=== PATIENT | female | born 1940 | race Caucasian/White ===

== ENCOUNTER 2017-05-07 22:35 | Emergency (ER) | payer MEDICARE, MEDICAID ==
--- NOTE | 2017-05-07 23:10 | EDM.PDOC ---
ED HPI GENERAL MEDICAL PROBLEM - General Chief Complaint: Respiratory Problem Stated Complaint: SOB Time Seen by Provider: 05/07/17 23:09 Source of Information: Reports: Patient History Limitations: Reports: No Limitations - History of Present Illness INITIAL COMMENTS - FREE TEXT/NARRATIVE: 77-year-old female attends the ED due to severe paroxysmal cough for the last 4 days. Feels is getting worse rather than better. Associated body aches and a headache. Appetite remains fair. She did have a flu shot this year. She works at [employer] and therefore could be exposed to influenza. She states her nose is occluded and mixes more difficult to breathe at night. Cough is worse with lying down. Minimally productive. No hemoptysis. Is been taking Advil about every 6 hours for body ache and fever relief. Onset: Sudden Onset Date: 05/03/17 Onset Time: 19:00 Duration: Day(s): Location: Reports: Chest (Severe harsh paroxysmal cough. Bodyache) Quality: Reports: Ache ( headache.), Other Severity: Moderate (Headache) Improves with: Reports: None Worsens with: Reports: Other (Lying down or exposure to cool air.) Context: Reports: Sick Contact. Denies: Activity, Exercise, Lifting, Trauma, Other Associated Symptoms: Reports: Chest Pain, Cough (From coughing), Fever/Chills, Headaches, Malaise, Shortness of Breath, Weakness. 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 almost every 6 hours.) - Related Data Allergies Allergy/AdvReac Type Severity Reaction Status Date / Time No Known Allergies Allergy Verified 05/07/17 22:49 Home Meds: Home Meds Ascorbate Calcium [Vitamin C] 500 mg PO DAILY 05/07/17 [History] Calcium Carb & Citrate/Vit D3 [Calcium + D3 ER Tablet] 1,200 mg PO DAILY [History] Fish Oil/DHA/EPA [Fish Oil 1,200 MG] 1 cap PO DAILY 05/07/17 [History] LORazepam [Ativan] 1 tab PO DAILY 05/07/17 [History] Magnesium 250 mg PO DAILY 05/07/17 [History] Potassium 99 mg PO DAILY 05/07/17 [History] Sertraline [Zoloft] 75 mg PO DAILY 05/07/17 [History] Simvastatin [Zocor] 10 mg PO DAILY 05/07/17 [History] amLODIPine [Norvasc] 5 mg PO DAILY 05/07/17 [History] Chlorpheniramine/HYDROcodone [Tussionex Pennkinetic] 5 ml PO Q12H PRN #60 ml [Rx] Doxycycline [Vibramycin] 100 mg PO DAILY #16 cap 05/08/17 [Rx] Past Medical History HEENT History: Reports: Impaired Vision Cardiovascular History: Reports: High Cholesterol, Hypertension Genitourinary History: Reports: None Psychiatric History: Reports: Anxiety - Past Surgical History HEENT Surgical History: Reports: Tonsillectomy Female Surgical History: Reports: Hysterectomy Social & Family History - Family History Family Medical History: Noncontributory - Tobacco Use Smoking Status *Q: Never Smoker - Recreational Drug Use Recreational Drug Use: No - Living Situation & Occupation Living situation: Reports: Occupation: Employed ED ROS GENERAL - Review of Systems Review Of Systems: See Below Constitutional: Reports: Fever, Malaise, Weakness, Fatigue, Decreased Appetite ( Mildly decreased). Denies: Chills HEENT: Reports: Other Respiratory: Reports: Shortness of Breath (He is nasally congested.), Cough. Denies: Wheezing, Pleuritic Chest Pain ( Due to coughing so much.), Sputum ( Severe paroxysmal cough minimally productive.) Cardiovascular: Reports: Chest Pain, Blood Pressure Problem (Coughing so much.) , Lightheadedness (It's lightheaded at times from coughing so hard). Denies: Claudication, Dyspnea on Exertion, Orthopnea ( Is on medication for blood pressure), Palpitations GI/Abdominal: Reports: Decreased Appetite (Mild a decreased appetite.) : Reports: Incontinence (Stress incontinence from coughing so hard.) Musculoskeletal: Reports: Muscle Pain Skin: Reports: No Symptoms (Generalized myalgia) Neurological: Reports: No Symptoms Psychiatric: Reports: No Symptoms ED EXAM, GENERAL - Physical Exam Exam: See Below Exam Limited By: No Limitations General Appearance: Alert, WD/WN, No Apparent Distress, Other (Does feel warm to palpation. Nurses got 36.6 by skin exam.) Eye Exam: Bilateral Eye: Normal Inspection Ears: Normal TMs Nose: Nasal Swelling (Does have marked swelling of the turbinates bilaterally due to I think), Nasal Drainage Throat/Mouth: Normal Inspection, Normal Lips, Normal Oropharynx Head: Atraumatic, Normocephalic Neck: Normal Inspection, Supple, Non-Tender, Full Range of Motion. No: Lymphadenopathy (L), Lymphadenopathy (R) Respiratory/Chest: Lungs Clear, Normal Breath Sounds, Respiratory Distress ( Mild tachypnea at rest 24/m), Other (Intermittent paroxysmal cough.). No: Decreased Breath Sounds, Crackles, Rales, Rhonchi, Wheezing Cardiovascular: Normal Peripheral Pulses, Regular Rate, Rhythm, No Edema, No Murmur Peripheral Pulses: 2+: Posterior Tibial (L), Posterior Tibial (R), Dorsalis Pedis (L), Dorsalis Pedis (R) GI/Abdominal: Normal Bowel Sounds, Soft, Non-Tender, No Organomegaly Back Exam: Normal Inspection, Full Range of Motion Extremities: Normal Inspection, Normal Range of Motion, Non-Tender, No Pedal Edema Neurological: Alert, Oriented, CN II-XII Intact, Normal Cognition, Normal Gait Psychiatric: Normal Affect, Normal Mood Skin Exam: Warm, Dry, Intact, Normal Color, No Rash Course - Vital Signs Last Recorded V/S: Last Vital Signs Temp 36.6 C 05/07/17 22:44 Pulse 84 05/07/17 22:44 Resp 24 H 05/07/17 22:44 BP 146/95 H 05/07/17 22:44 Pulse Ox 95 05/07/17 22:44 - Orders/Labs/Meds Meds: Medications Discontinued Medications Generic Name Dose Route Start Last Admin Trade Name Freq PRN Reason Stop Dose Admin Doxycycline Hyclate 100 mg 05/08/17 00:15 05/08/17 00:28 Vibramycin PO 05/08/17 00:16 100 mg ONETIME ONE Administration Promethazine HCl/Codeine 10 ml 05/08/17 23:16 Phenergan With Codeine PO 05/08/17 23:17 ONETIME ONE Promethazine HCl/Codeine 10 ml 05/07/17 23:16 05/07/17 23:29 Phenergan With Codeine PO 05/07/17 23:17 10 ml ONETIME ONE Administration - Radiology Interpretation Free Text/Narrative:: 77-year-old female seen through the ED due to severe paroxysmal cough for the last 4 days. She can't sleep because she time she lays down she is coughing severely. Associated nasal congestion generalized myalgia and headache. She did have a flu shot this last year. Clinically she has a milder form of influenza. I will screen her for influenza at this time. I will provide her with codeine cough syrup with Phenergan 10 mils by mouth now with a few crackers. - Re-Assessments/Exams Free Text/Narrative Re-Assessment/Exam: 05/08/17 00:13 influenza screen has returned as negative. Patient will therefore be treated for bronchitis with doxycycline 100 mg twice daily for the next 8 days. Initial dose was given in the ED. She also received initial dose of cough syrup 10 mils of codeine with Phenergan by mouth. I will write a prescription for Tussionex cough syrup to be taken 5 mils every 12 hours as necessary for cough relief.. Follow-up with personal physician if not markedly improved in 5 days time. Departure - Departure Time of Disposition: 00:14 Disposition: Home, Self-Care 01 Condition: Fair Clinical Impression: Bronchitis - Discharge Information Prescriptions: Chlorpheniramine/HYDROcodone [Tussionex Pennkinetic] 5 ml PO Q12H PRN #60 ml PRN Reason: Cough relief Doxycycline [Vibramycin] 100 mg PO DAILY #16 cap Instructions: Acute Bronchitis, Adult, [id number] Referrals: Elsy Mayfield MD [Primary Care Provider] - Forms: ED Department Discharge Additional Instructions: Evaluation in the emergency room tonight in regards to severe paroxysmal cough to the point of for the last several days. Associated mild generalized body ache and headache. Some of the symptoms of influenza are present. It was felt that you might be suffering a milder form of the illness and she did have a flu shot. Influenza screen however proved to be negative in the emergency department. This does not necessarily mean you still do not have the disease it just means that the test may have missed the date diagnosis. Diagnosis otherwise is bronchitis. I'm therefore going to start her on antibiotic doxycycline 100 mg twice daily for 8 days to clear up infection both in the sinuses and chest. Cough syrup will be Tussionex 5 mils every 12 hours as needed for cough relief primarily at bedtime. Take a good hour before bedtime as it takes about an hour to work. Follow-up with personal physician if not markedly improved in the next 5 days.
[2017-05-07] MEDS ORDERED: Codeine/Promethazine 10-6.25 MG/5 ML Syrup 5 ML UD Cup PO ONE (23:16)
[2017-05-08] MEDS ORDERED: Doxycycline 100 MG Cap PO ONE (00:15)
[2017-05-08] MEDS ORDERED: Codeine/Promethazine 10-6.25 MG/5 ML Syrup 5 ML UD Cup PO ONE (23:16)
== END 2017-05-08 00:30 | disposition home or self-care (01) ==
LOC: JD.ED 22:35
DX: J40 Bronchitis, not specified as acute or chronic (principal); I10 Essential (primary) hypertension; E78.00 Pure hypercholesterolemia, unspecified; Z79.2 Long term (current) use of antibiotics; Z79.899 Other long term (current) drug therapy
CPT/HCPCS: 87804; 99283; A9270

== ENCOUNTER → 2018-03-17 | Day surgery (SDC) | payer MEDICARE, MEDICAID ==
[~2018-03-17] MED LIST: Lactated Ringers 1,000 ML IV SCH; Lidocaine 1% 4 ML ONE; Lidocaine 1%/Sod Bicarbonate in NS 8.4% 1 ML Syringe IDERM PRN; Ondansetron 4 MG/2 ML SDV ONE; Propofol 200 MG/20 ML SDV ONE; Sodium Chloride 0.9% 10 ML Syringe FLUSH PRN; fentaNYL 100 MCG/2 ML SDV ONE
--- NOTE | 2018-03-17 07:42 | PCM.PREANE ---
Preanesthetic Assessment - Procedure Proposed Procedure: Colonoscopy - Anesthesia/Transfusion/Family Hx Anesthesia History: Prior Anesthesia Without Reaction Family History of Anesthesia Reaction: No - Review of Systems General: No Symptoms Pulmonary: No Symptoms Cardiovascular: No Symptoms Gastrointestinal: No Symptoms Neurological: No Symptoms Other: Reports: Anxiety - Physical Assessment NPO Status Date: 03/16/18 NPO Status Time: 21:00 O2 Sat by Pulse Oximetry: 96 Respiratory Rate: 16 Vital Signs: Last Vital Signs Temp 36.4 C 03/17/18 07:05 Pulse 58 L 03/17/18 07:05 Resp 16 03/17/18 07:05 BP 154/91 H 03/17/18 07:05 Pulse Ox 96 03/17/18 07:05 Height: 1.57 m Weight: 61.235 kg ASA Class: 2 Mental Status: Alert & Oriented x3 Airway Class: Mallampati = 1 Dentition: Reports: Partial Thyro-Mental Finger Breadths: 3 Mouth Opening Finger Breadths: 3 ROM/Head Extension: Full Lungs: Clear to Auscultation, Normal Respiratory Effort Cardiovascular: Regular Rate, Regular Rhythm - Allergies Allergies/Adverse Reactions: Allergies Allergy/AdvReac Type Severity Reaction Status Date / Time No Known Allergies Allergy Verified 03/16/18 18:48 - Acknowledgements Anesthesia Type Planned: MAC Pt an Appropriate Candidate for the Planned Anesthesia: Yes Alternatives and Risks of Anesthesia Discussed w Pt/Guardian: Yes Pt/Guardian Understands and Agrees with Anesthesia Plan: Yes PreAnesthesia Questionnaire HEENT History: Reports: Impaired Vision Cardiovascular History: Reports: High Cholesterol, Hypertension, Other (See Below) Other Cardiovascular History: bradycardia Respiratory History: Reports: Other (See Below) Other Respiratory History: shortness of breath with exertion Gastrointestinal History: Reports: Hiatal Hernia Genitourinary History: Reports: Other (See Below) Other Genitourinary History: frequency 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 Musculoskeletal History: Reports: None Neurological History: Reports: None Psychiatric History: Reports: Anxiety Endocrine/Metabolic History: Reports: None Hematologic History: Reports: None Immunologic History: Reports: None Oncologic (Cancer) History: Reports: None Dermatologic History: Reports: None - Past Surgical History Head Surgeries/Procedures: Reports: None HEENT Surgical History: Reports: Tonsillectomy Cardiovascular Surgical History: Reports: None Respiratory Surgical History: Reports: None GI Surgical History: Reports: Colonoscopy Female Surgical History: Reports: Breast Biopsy, Hysterectomy, Other (See Below) Other Female Surgeries/Procedures: bladder repair Endocrine Surgical History: Reports: None Neurological Surgical History: Reports: None Musculoskeletal Surgical History: Reports: None Oncologic Surgical History: Reports: None Dermatological Surgical History: Reports: None - SUBSTANCE USE Recreational Drug Use History: No - HOME MEDS Home Medications: Home Meds Ascorbate Calcium [Vitamin C] 500 mg PO DAILY 05/07/17 [History] Fish Oil/DHA/EPA [Fish Oil 1,200 MG] 1 cap PO BID 05/07/17 [History] LORazepam [Ativan] 1 tab PO Q48H 05/07/17 [History] Magnesium 250 mg PO DAILY 05/07/17 [History] Sertraline [Zoloft] 75 mg PO DAILY 05/07/17 [History] amLODIPine [Norvasc] 5 mg PO DAILY 05/07/17 [History] Aspirin [Hurt Aspirin] 81 mg PO DAILY 03/16/18 [History] Calcium Carb/D3/Magnesium/Zinc [Ketan Mag Zinc + D Tablet] 1 tab PO BID 03/16/18 [ History] Cyanocobalamin (Vitamin B-12) [Vitamin B-12] 100 mcg PO DAILY 03/16/18 [History] Rosuvastatin [Crestor] 10 mg PO DAILY 03/16/18 [History] hydroCHLOROthiazide [Hydrochlorothiazide] 25 g PO DAILY 03/16/18 [History] - CURRENT (IN HOUSE) MEDS Current Meds: Current Medications Lactated Ringer's (Ringers, Lactated) 1,000 mls @ 125 mls/hr IV ASDIRECTED ALEXANDER Stop: 03/17/18 23:00 Last Admin: 03/17/18 07:15 Dose: 125 mls/hr Lidocaine/Sodium Bicarbonate (Buffered Lidocaine 1% In Ns 8.4%) 0.25 ml IDERM ONETIME PRN PRN Reason: Prior to IV Start Stop: 03/17/18 18:00 Last Admin: 03/17/18 07:15 Dose: 0.25 ml Sodium Chloride (Saline Flush) 10 ml FLUSH ASDIRECTED PRN PRN Reason: Keep Vein Open Stop: 03/17/18 18:00 Discontinued Medications Fentanyl (Sublimaze) Confirm Administered Dose 100 mcg .ROUTE .STK-MED ONE Stop: 03/17/18 07:33 Lidocaine HCl (Xylocaine-Mpf 1%) Confirm Administered Dose 4 mls @ as directed .ROUTE .STK-MED ONE Stop: 03/17/18 07:33 Ondansetron HCl (Zofran) Confirm Administered Dose 4 mg .ROUTE .STK-MED ONE Stop: 03/17/18 07:32 Propofol (Diprivan 20 Ml) Confirm Administered Dose 400 mg .ROUTE .STK-MED ONE Stop: 03/17/18 07:32
--- NOTE | 2018-03-17 09:20 | PCM.OPNOTE ---
- General Post-Op/Procedure Note Date of Surgery/Procedure: 03/17/18 Operative Procedure(s): colonoscopy to cecum with polypectomy Findings: 1. Ascending colon polyp 2. Transverse colon polyp 3. Rectal polyp x2 Pre Op Diagnosis: screening for colon cancer Post-Op Diagnosis: same Anesthesia Technique: MAC Primary Surgeon: Brinda Kincaid Anesthesia Provider: Ella Britt Pathology: 1. Ascending colon polyp 2. Transverse colon polyp 3. Rectal polyp x3 Fluid Replacement, Intraop: 800 Output, Urine Amount: 0 EBL in mLs: 0 Condition: Good
--- NOTE | 2018-03-17 09:20 | PCM48HPAN ---
Post Anesthesia Note - EVALUATION WITHIN 48HRS OF ANESTHETIC Vital Signs in Normal Range: Yes Patient Participated in Evaluation: Yes Respiratory Function Stable: Yes Airway Patent: Yes Cardiovascular Function Stable: Yes Hydration Status Stable: Yes Pain Control Satisfactory: Yes Nausea and Vomiting Control Satisfactory: Yes Mental Status Recovered: Yes Pulse Rate: 58 SaO2: 96 Resp Rate: 16 Temperature: 36.2 C Blood Pressure: 141/75
--- NOTE | 2018-03-17 09:22 | PCM.PRNOTE ---
- Free Text/Narrative Note: Operative Report Date of Surgery/Procedure: March, Operative Procedure: Colonoscopy to cecum with polypectomy Pre Op Diagnosis: colorectal cancer screening Post-Op Diagnosis: Same Surgeon: Brinda Kincaid Anesthesia Technique: MAC Anesthesia Provider: Marii Britt CRNA IV Fluid Replacement, Intraop: 800 cc Output, Urine Amount: 0cc EBL : 0cc Findings: 1. Ascending colon polyp 2. Transverse colon polyp 3. Rectal polyp x2 Specimens: 1. Ascending colon polyp 2. Transverse colon polyp 3. Rectal polyp x2 Indication: The patient is a 77 year-old lady who presented to the outpatient clinic requesting colorectal cancer screening. The patient has a history of alternating intermittent soft stools with pebble-like stools. She otherwise is without symptoms. We discussed the procedure of a screening colonoscopy including the polypectomy and biopsy. Risks of bleeding and perforation were discussed, the patient understood and wished to proceed. Written and consent was obtained Description of the procedure: The patient was brought to the endoscopy suite and placed in the left lateral decubitus position. Appropriate monitors were applied. The patient was given MAC anesthesia. An anorectal examination was performed, revealing external skin tags without evidence of significant hemorrhoids. The scope was placed into the rectum and advanced to cecum with minimal difficulty requiring no special maneuvers. The patients cecum was entered, and the ileocecal valve and appendiceal orifice were identified and normal. At this point, the scope was withdrawn, paying careful attention to the mucosa. The patient had excellent bowel prep, allowing for visualization of 90-95 % of the mucosa. Polyps in the descending and transverse colon as well as rectum were noted. These were each 2 -3 mm in size and flat, each was removed using a cold biopsy forceps. In the rectum, the scope was retroflexed and no abnormalities were noted, except for some minimal hemorrhoidal tissue. The scope was placed back in the lumen and the excess air was aspirated. The patient tolerated the procedure well. Complications: none apparent Condition: Good, transported to PACU in stable condition Brinda Kincaid MD General Surgery
== END | disposition home or self-care (01) ==
LOC: JD.SDS 06:51
PROVIDERS: ATTEND Surgery
DX: Z12.11 Encounter for screening for malignant neoplasm of colon (principal); D12.3 Benign neoplasm of transverse colon; D12.2 Benign neoplasm of ascending colon; K62.1 Rectal polyp; I10 Essential (primary) hypertension; E78.5 Hyperlipidemia, unspecified; K44.9 Diaphragmatic hernia without obstruction or gangrene; F41.9 Anxiety disorder, unspecified; Z79.899 Other long term (current) drug therapy
CPT/HCPCS: 45380; J2405; J2704; J3010; J7120; J2001

== ENCOUNTER 2020-05-19 07:59 | Day surgery (SDC) | payer MEDICARE, MEDICAID ==
[~2020-05-19 07:59] MED LIST changes: +EPINEPHrine 1 MG/ML SDV ONE; -Lactated Ringers 1,000 ML IV SCH; +Midazolam 1 MG/ML 2 ML SDV ONE; -Ondansetron 4 MG/2 ML SDV ONE; +Ropivacaine 0.5% 5 MG/ML 30 ML SDV ONE; -fentaNYL 100 MCG/2 ML SDV ONE; +fentaNYL 250 MCG/5 ML SDV ONE
[2020-05-19] MEDS ORDERED: ceFAZolin 1 GM Vial ONE (08:07)
[2020-05-19] MEDS: Lactated Ringers 1,000 ML IV SCH ×3 (08:20→15:35)
--- NOTE | 2020-05-19 08:23 | PCM.PREANE ---
Preanesthetic Assessment - Anesthesia/Transfusion/Family Hx Anesthesia History: Prior Anesthesia Without Reaction Family History of Anesthesia Reaction: No Transfusion History: No Prior Transfusion(s) - Review of Systems General: No Symptoms Pulmonary: No Symptoms Cardiovascular: No Symptoms Gastrointestinal: No Symptoms Neurological: No Symptoms Other: Reports: None - Physical Assessment NPO Status Date: 05/18/20 NPO Status Time: 21:30 ASA Class: 2 Mental Status: Alert & Oriented x3 Airway Class: Mallampati = 2 Dentition: Reports: Partial Thyro-Mental Finger Breadths: 3 Mouth Opening Finger Breadths: 3 ROM/Head Extension: Full Lungs: Clear to Auscultation, Normal Respiratory Effort Cardiovascular: Regular Rate, Regular Rhythm - Lab Values: Laboratory Last Values SARS-CoV-2 RNA (ZAC) Negative (NEGATIVE) 05/15/20 10:30 MRSA (PCR) Negative 05/07/20 17:00 - Allergies Allergies/Adverse Reactions: Allergies Allergy/AdvReac Type Severity Reaction Status Date / Time No Known Allergies Allergy Verified 05/18/20 10:32 - Acknowledgements Anesthesia Type Planned: Spinal Pt an Appropriate Candidate for the Planned Anesthesia: Yes Alternatives and Risks of Anesthesia Discussed w Pt/Guardian: Yes Pt/Guardian Understands and Agrees with Anesthesia Plan: Yes PreAnesthesia Questionnaire HEENT History: Reports: Impaired Vision Cardiovascular History: Reports: High Cholesterol, Hypertension, Other (See Below) Other Cardiovascular History: bradycardia Respiratory History: Reports: Other (See Below) Other Respiratory History: shortness of breath with exertion Gastrointestinal History: Reports: Colon Polyp, Hiatal Hernia Genitourinary History: Reports: Other (See Below) Other Genitourinary History: cystocele, rectocele, prolapse, bladder dysfunction, urinary frequency 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 Musculoskeletal History: Reports: Arthritis, Fibromyalgia, Other (See Below) Other Musculoskeletal History: left knee pain Neurological History: Reports: None Psychiatric History: Reports: Anxiety, Depression Endocrine/Metabolic History: Reports: None Hematologic History: Reports: None Immunologic History: Reports: None Oncologic (Cancer) History: Reports: None Dermatologic History: Reports: None - Infectious Disease History Infectious Disease History: Reports: None - Past Surgical History Head Surgeries/Procedures: Reports: None HEENT Surgical History: Reports: Tonsillectomy Cardiovascular Surgical History: Reports: None Respiratory Surgical History: Reports: None GI Surgical History: Reports: Colonoscopy Female Surgical History: Reports: Breast Biopsy, Hysterectomy, Other (See Below) Other Female Surgeries/Procedures: bladder repair Endocrine Surgical History: Reports: None Neurological Surgical History: Reports: None Musculoskeletal Surgical History: Reports: None Oncologic Surgical History: Reports: None Dermatological Surgical History: Reports: None - SUBSTANCE USE Tobacco Use Status *Q: Never Tobacco User Recreational Drug Use History: No - HOME MEDS Home Medications: Home Meds Ascorbate Calcium [Vitamin C] 500 mg PO DAILY 05/07/17 [History] Sertraline [Zoloft] 75 mg PO DAILY 05/07/17 [History] amLODIPine [Norvasc] 5 mg PO DAILY 05/07/17 [History] Calcium Carb/D3/Magnesium/Zinc [Ketan Mag Zinc-D Tablet] 1 tab PO BID 03/16/18 [History] Rosuvastatin [Crestor] 10 mg PO DAILY 03/16/18 [History] hydroCHLOROthiazide [Hydrochlorothiazide] 25 mg PO DAILY 03/16/18 [History] Cholecalciferol (Vitamin D3) [Vitamin D3] 5,000 unit PO DAILY 05/18/20 [History] Losartan [Cozaar] 50 mg PO DAILY 05/18/20 [History] Potassium Chloride 20 meq PO DAILY 05/18/20 [History] tiZANidine HCl [Zanaflex] 4 mg PO DAILY 05/18/20 [History] Acetaminophen/HYDROcodone [[place] 325-5 MG] 1 - 2 tab PO Q4H PRN #40 tablet 05/19/20 [Rx] Aspirin [Aspirin EC] 325 mg PO BID #84 tab 05/19/20 [Rx] - CURRENT (IN HOUSE) MEDS Current Meds: Current Medications Morphine Sulfate 8 mg/Epinephrine HCl 0.3 mg/Cefuroxime Sodium 750 mg/Ketorolac Tromethamine 30 mg/Sodium Chloride 7.9 ml 0 mg .XX ASDIRECTED PRN PRN Reason: Pain Stop: 05/19/20 18:00 Lactated Ringer's (Ringers, Lactated) 1,000 mls @ 125 mls/hr IV ASDIRECTED ALEXANDER Stop: 05/19/20 23:00 Lidocaine/Sodium Bicarbonate (Buffered Lidocaine 1% In Ns 8.4%) 0.25 ml IDERM ONETIME PRN PRN Reason: Prior to IV Start Stop: 05/19/20 18:00 Sodium Chloride (Saline Flush) 10 ml FLUSH ASDIRECTED PRN PRN Reason: Keep Vein Open Stop: 05/19/20 18:00 Discontinued Medications Cefazolin Sodium (Ancef) Confirm Administered Dose 2 gm .ROUTE .STK-MED ONE Stop: 05/19/20 08:08 Epinephrine HCl (Adrenalin) Confirm Administered Dose 1 mg .ROUTE .STK-MED ONE Stop: 05/19/20 07:47 Fentanyl (Sublimaze) Confirm Administered Dose 250 mcg .ROUTE .STK-MED ONE Stop: 05/19/20 07:25 Lidocaine HCl (Xylocaine-Mpf 1%) Confirm Administered Dose 4 mls @ as directed .ROUTE .STK-MED ONE Stop: 05/19/20 07:23 Midazolam HCl (Versed 1 Mg/Ml) Confirm Administered Dose 2 mg .ROUTE .STK-MED ONE Stop: 05/19/20 07:24 Propofol (Diprivan 20 Ml) Confirm Administered Dose 200 mg .ROUTE .STK-MED ONE Stop: 05/19/20 07:23 Ropivacaine (Naropin 0.5%) Confirm Administered Dose 30 ml .ROUTE .STK-MED ONE Stop: 05/19/20 07:47
[2020-05-19] MEDS ORDERED: Ondansetron 4 MG/2 ML SDV IVPUSH PRN ×2 (09:27→21:56)
[2020-05-19] MEDS: Vancomycin 1 GM SDV ONE ×2 (09:50→10:28)
[2020-05-19] MEDS: Morphine 8 MG, EPINEPHrine 0.3 MG, Cefuroxime 750 MG, Ketorolac 30 MG, Sodium Chloride ... PRN ×10 (09:50→10:20)
[2020-05-19] MEDS: Triamcinolone Acetonide 40 MG/ML 1 ML SDV ONE ×2 (09:51→10:38)
[2020-05-19] MEDS: Bupivacaine 0.25% 10 ML SDV ONE ×2 (09:52→10:38)
[2020-05-19] MEDS ORDERED: Ketorolac 30 MG/ML SDV ONE (10:00)
[2020-05-19] MEDS ORDERED: Ondansetron 4 MG/2 ML SDV ONE (10:00)
[2020-05-19] MEDS ORDERED: fentaNYL 100 MCG/2 ML SDV ONE ×2 (10:57→11:28)
--- NOTE | 2020-05-19 11:18 | PCM.POSTAN ---
POST ANESTHESIA ASSESSMENT - MENTAL STATUS Mental Status: Alert, Oriented - VITAL SIGNS Vital Signs: Last Vital Signs Temp Pulse 63 05/19/20 08:20 Resp 16 05/19/20 08:20 BP 147/85 H 05/19/20 08:20 Pulse Ox 97 05/19/20 08:20 - RESPIRATORY Respiratory Status: Respiratory Rate WNL, Airway Patent, O2 Saturation Stable - CARDIOVASCULAR CV Status: Slow Pulse Rate, Low Blood Pressure (pt given 10mg ephedrine, adequate response noted) - GASTROINTESTINAL GI Status: No Symptoms - PAIN Pain Score: 6 - POST OP HYDRATION Hydration Status: Adequate & Stable
[2020-05-19] MEDS ORDERED: HYDROmorphone 0.5 MG/0.5 ML Syringe ONE ×2 (11:19→11:29)
--- NOTE | 2020-05-19 12:08 | PCM.OPNOTE ---
- General Post-Op/Procedure Note Date of Surgery/Procedure: 05/19/20 Operative Procedure(s): left total knee arthroplasty with [employer] and right knee corticosteroid injection Pre Op Diagnosis: bilateral knee osteoarthrosis Post-Op Diagnosis: Same Anesthesia Technique: Local, MAC, Spinal Primary Surgeon: Gautam Aragon Anesthesia Provider: Capri Madison Supervising Fire Marshal: Laura Buck Supervising Fire Marshal: Cecilia Chi EBL in mLs: 5 Complications: None Condition: Good Free Text/Narrative:: 05/14 29x9 9mm
--- NOTE | 2020-05-19 12:12 | CR ---
Left knee: AP and crosstable lateral view of the left knee were obtained. Comparison: Prior left knee CT exam of 05/07/20. Left knee prosthesis is noted. Components are aligned. Patellar prosthesis is also seen. Soft tissue air is noted. No acute osseous finding is seen. Impression: 1. Satisfactory postop radiographic appearance of recently placed left knee prosthesis. Diagnostic code #2
--- NOTE | 2020-05-19 12:25 | PCM.SN.2 ---
- Free Text/Narrative Note: Left selective femoral nerve block at the adductor canal for post-procedure pain control under US guidance requested by Dr. Aragon. Date:05/19/2020 Time Out: 1106 Start: 1106 End: 1110 Chart reviewed. Consent signed. Questions answered. Appropriate monitors applied. Time out performed. Left mid-shaft femur identified with ultrasound, scanning medially of femur, the femoral artery in the adductor canal visualized, and the femoral nerve located laterally to the artery. The skin was prepped lateral to the ultrasound probe with chlorahexadine times two. The 21ga 4 insulated block needle was inserted under direct ultrasound guidance into the adductor canal. 25mL of 0.5% ropivacaine with 1:200,000 epinephrine was injected circumferentially around the nerve with intermittent negative aspiration noted. Patient tolerated the procedure well. Sterile technique noted along with sterile gloves, mask, and sterile probe cover. See picture on progress note and vital signs on nurses notes. Block completed in PACU. Luciano Britt CRNA
[2020-05-19] MEDS ORDERED: fentaNYL 100 MCG/2 ML SDV IVPUSH PRN (12:51)
[2020-05-19] MEDS ORDERED: HYDROmorphone 0.5 MG/0.5 ML Syringe IVPUSH PRN (12:51)
--- NOTE | 2020-05-19 12:51 | PCM48HPAN ---
Post Anesthesia Note - EVALUATION WITHIN 48HRS OF ANESTHETIC Vital Signs in Normal Range: Yes Patient Participated in Evaluation: Yes Respiratory Function Stable: Yes Airway Patent: Yes Cardiovascular Function Stable: Yes Hydration Status Stable: Yes Pain Control Satisfactory: Yes Nausea and Vomiting Control Satisfactory: Yes Mental Status Recovered: Yes Vital Signs: Last Vital Signs Temp 36.6 C 05/19/20 11:20 Pulse 76 05/19/20 11:20 Resp 20 05/19/20 11:20 BP 109/76 05/19/20 11:20 Pulse Ox 96 05/19/20 11:20 - COMMENTS/OBSERVATIONS Free Text/Narrative:: Pt resting quietly, comfortable.
[2020-05-19] MEDS: ceFAZolin 2 GM in Premix Bag 1 BAG IV SCH (19:21)
[2020-05-20] MEDS: ceFAZolin 2 GM in Premix Bag 1 BAG IV SCH (02:00)
[2020-05-20] MEDS: Acetaminophen/HYDROcodone 325-5 MG Tab PO PRN ×2 (08:34→12:06)
[2020-05-20] MEDS ORDERED: Aspirin 325 MG Tab.EC PO SCH ×2 (09:00)
[2020-05-20] MEDS ORDERED: Ketorolac 30 MG/ML SDV IM PRN (10:01)
[2020-05-20] MEDS ORDERED: tiZANidine 4 MG Tab PO PRN (10:02)
--- NOTE | 2020-05-20 17:27 | PCM.SURGPN ---
- General Info Date of Service: 05/20/20 POD#: 1 Functional Status: Reports: Pain Controlled, Tolerating Diet, Ambulating, Urinating, Incentive Spirometry, Other (The pt has done well with mobility and has met inpt therapy goals.) - Patient Data Vitals - Most Recent: Last Vital Signs Temp 99.2 F 05/20/20 08:00 Pulse 65 05/20/20 08:00 Resp 18 05/20/20 08:00 BP 130/74 05/20/20 08:00 Pulse Ox 92 L 05/20/20 08:00 Weight - Most Recent: 130 lb I&O - Last 24 Hours: Intake & Output 05/20/20 05/20/20 05/20/20 06:59 14:59 22:59 Intake Total 120 Balance 120 Med Orders - Current: Current Medications Cefazolin Sodium/Dextrose 2 gm (/ Premix) 50 mls @ 100 mls/hr IV Q8H ALEXANDER Stop: 05/20/20 10:29 Last Admin: 05/20/20 02:00 Dose: 100 mls/hr Documented by: Ondansetron HCl (Zofran) 4 mg IVPUSH Q4H PRN PRN Reason: Nausea Last Admin: 05/19/20 22:40 Dose: 4 mg Documented by: Discontinued Medications Bupivacaine HCl (Sensorcaine-Mpf 0.25%) Confirm Administered Dose 10 ml .ROUTE .STK-MED ONE Stop: 05/19/20 08:38 Last Admin: 05/19/20 10:38 Dose: 4 ml Documented by: Cefazolin Sodium (Ancef) Confirm Administered Dose 2 gm .ROUTE .STK-MED ONE Stop: 05/19/20 08:08 Morphine Sulfate 8 mg/Epinephrine HCl 0.3 mg/Cefuroxime Sodium 750 mg/Ketorolac Tromethamine 30 mg/Sodium Chloride 7.9 ml 0 mg .XX ASDIRECTED PRN PRN Reason: Pain Stop: 05/19/20 18:00 Last Admin: 05/19/20 10:20 Dose: 788.3 mg Documented by: Epinephrine HCl (Adrenalin) Confirm Administered Dose 1 mg .ROUTE .STK-MED ONE Stop: 05/19/20 07:47 Fentanyl (Sublimaze) Confirm Administered Dose 250 mcg .ROUTE .STK-MED ONE Stop: 05/19/20 07:25 Fentanyl (Sublimaze) Confirm Administered Dose 100 mcg .ROUTE .STK-MED ONE Stop: 05/19/20 10:58 Last Admin: 05/19/20 11:06 Dose: 100 mcg Documented by: Fentanyl (Sublimaze) Confirm Administered Dose 100 mcg .ROUTE .STK-MED ONE Stop: 05/19/20 11:29 Last Admin: 05/19/20 11:30 Dose: 100 mcg Documented by: Fentanyl (Sublimaze) 50 mcg IVPUSH Q5M PRN PRN Reason: Pain Stop: 05/19/20 23:00 Hydromorphone HCl (Dilaudid) Confirm Administered Dose 0.5 mg .ROUTE .STK-MED ONE Stop: 05/19/20 11:20 Last Admin: 05/19/20 11:37 Dose: 0.5 mg Documented by: Hydromorphone HCl (Dilaudid) Confirm Administered Dose 0.5 mg .ROUTE .STK-MED ONE Stop: 05/19/20 11:30 Last Admin: 05/19/20 11:20 Dose: 0.5 mg Documented by: Hydromorphone HCl (Dilaudid) 0.5 mg IVPUSH Q1H PRN PRN Reason: Pain Stop: 05/19/20 23:00 Lactated Ringer's (Ringers, Lactated) 1,000 mls @ 125 mls/hr IV ASDIRECTED ALEXANDER Stop: 05/19/20 23:00 Last Admin: 05/19/20 15:35 Dose: 125 mls/hr Documented by: Lidocaine HCl (Xylocaine-Mpf 1%) Confirm Administered Dose 4 mls @ as directed .ROUTE .STK-MED ONE Stop: 05/19/20 07:23 Ketorolac Tromethamine (Toradol) Confirm Administered Dose 30 mg .ROUTE .STK-MED ONE Stop: 05/19/20 10:01 Lidocaine/Sodium Bicarbonate (Buffered Lidocaine 1% In Ns 8.4%) 0.25 ml IDERM ONETIME PRN PRN Reason: Prior to IV Start Stop: 05/19/20 18:00 Last Admin: 05/19/20 08:20 Dose: 0.25 ml Documented by: Midazolam HCl (Versed 1 Mg/Ml) Confirm Administered Dose 2 mg .ROUTE .STK-MED ONE Stop: 05/19/20 07:24 Ondansetron HCl (Zofran) 4 mg IVPUSH ONETIME PRN PRN Reason: Nausea/Vomiting Stop: 05/19/20 23:00 Last Admin: 05/19/20 11:03 Dose: 4 mg Documented by: Ondansetron HCl (Zofran) Confirm Administered Dose 4 mg .ROUTE .STK-MED ONE Stop: 05/19/20 10:01 Propofol (Diprivan 20 Ml) Confirm Administered Dose 200 mg .ROUTE .STK-MED ONE Stop: 05/19/20 07:23 Ropivacaine (Naropin 0.5%) Confirm Administered Dose 30 ml .ROUTE .STK-MED ONE Stop: 05/19/20 07:47 Sodium Chloride (Saline Flush) 10 ml FLUSH ASDIRECTED PRN PRN Reason: Keep Vein Open Stop: 05/19/20 18:00 Tranexamic Acid (Cyklokapron) Confirm Administered Dose 1,000 mg .ROUTE .STK-MED ONE Stop: 05/19/20 08:20 Last Admin: 05/19/20 10:28 Dose: 1,000 mg Documented by: Triamcinolone Acetonide (Kenalog-40) Confirm Administered Dose 80 mg .ROUTE .STK-MED ONE Stop: 05/19/20 08:38 Last Admin: 05/19/20 10:38 Dose: 80 mg Documented by: Vancomycin HCl (Vancomycin) Confirm Administered Dose 1 gm .ROUTE .STK-MED ONE Stop: 05/19/20 08:20 Last Admin: 05/19/20 10:28 Dose: 1 gm Documented by: - Exam Wound/Incisions: Dressing Dry and Intact General: Alert, Cooperative, No Acute Distress Lungs: Normal Respiratory Effort Extremities: Other (NVS intact for BLE. Ubaldo's negative.) Sepsis Event Note - Evaluation Sepsis Screening Result: No Definite Risk - Focused Exam Vital Signs: Vital Signs Temp Pulse Resp BP Pulse Ox 05/20/20 08:00 99.2 F 65 18 130/74 92 L - Problem List Review Problem List Initiated/Reviewed/Updated: Yes - My Orders Last 24 Hours: Active Orders 24 hr Category Date Time Status Admission Status [Patient Status] [ADT] Routine ADT 05/19/20 19:38 Active Peripheral IV Discontinue [OM.PC] Routine Oth 05/20/20 09:12 Ordered Medication Orders Cefazolin Sodium/Dextrose 2 gm (/ Premix) 50 mls @ 100 mls/hr IV Q8H ALEXANDER Stop: 05/20/20 10:29 Last Admin: 05/20/20 02:00 Dose: 100 mls/hr Documented by: Infusion: 05/19/20 19:51 Dose: 100 mls/hr Documented by: Admin: 05/19/20 19:21 Dose: 100 mls/hr Documented by: GEOVANNA Ondansetron HCl (Zofran) 4 mg IVPUSH Q4H PRN PRN Reason: Nausea Last Admin: 05/19/20 22:40 Dose: 4 mg Documented by: TIFFANIE - Assessment Assessment (Free Text/Narrative):: POD#1 - left TKA - Plan Plan (Free Text/Narrative):: 1. The pt was sent to the [facility] post-operatively for Extended Floor Recovery. 2. The pt has progressed well with PT and is prepared for discharge to home. 3. 325mg ASA PO BID, frequent mobility, TEDs. The pt's case was discussed with Dr. Aragon. Dr. Aragon evaluated the pt today also.
--- NOTE | 2020-06-02 08:27 | OR ---
DATE OF OPERATION: 05/19/2020 SURGEON: Gautam Aragon MD OPERATION PERFORMED: Left total knee arthroplasty with David robotics and right knee corticosteroid injection. PREOPERATIVE DIAGNOSIS: Bilateral knee osteoarthrosis. POSTOPERATIVE DIAGNOSIS: Bilateral knee osteoarthrosis. ANESTHESIA: Local MAC with spinal. ANESTHESIA PROVIDER: Capri Madison CRNA ASSISTANTS: Laura Buck PA-C, and Cecilia Chi LPN ESTIMATED BLOOD LOSS: 5 mL. COMPLICATIONS: None. CONDITION: Stable. IMPLANTS: 1. [place] size 3 cemented PS femur. 2. [place] size 3 cemented [place] tibial baseplate. 3. [place] size 29 x 9 mm cemented asymmetric patella. 4. Brittany size 9 mm PS X3 polyethylene. DESCRIPTION OF PROCEDURE: The patient was identified in the preoperative holding area. Proper site was marked, identified by the surgeon. The patient was taken back to the operative theater, where after adequate anesthesia, the patient's left lower extremity had a nonsterile tourniquet applied and then sterilely prepped and draped in the usual sterile fashion. OR time-out was performed. The patient received 2 g IV Ancef. A boot was then applied to the left lower extremity. The left lower extremity was exsanguinated, tourniquet was insufflated to 250 mmHg. Standard anterior incision was made and medial parapatellar arthrotomy was created. Deep fibers of the MCL were raised and anterior fat pad was resected. Attention was turned to the patella. Patella measured a 21, resected to a 13 for a 29 x 9 mm patella. Drill holes were then drilled and found to be adequate. Attention was turned to the femur and tibia. Two intra-incisional 4.0 pins were placed for the [place] David robotic array and then 2 pins were placed in the tibia 3 fingerbreadths below the tibial tubercle. The [place] David robotic arrays were then placed along with the check points on both the femur and the tibia for the [place]any David robotic plan. At this time, hip center rotation was identified. Medial and lateral malleoli were marked. 40 points were then taken off both the femur and the tibia for the [place] David robotic plan. The patient's knee was brought into full extension. Varus and valgus stresses were applied and then it was brought to 90 degrees of flexion. Varus and valgus stresses again were applied with the use of a curved osteotome. Ticies robotic plan was then done to 19 mm gap in both flexion and extension on the patient at this time. Ticies robotic arm was brought in and the tibia cut as well as the anterior femoral cut, the anterior chamber cut, and the posterior femoral condyle cut were completed at this time. Saw blade was then switched and the posterior chamfer and the distal femoral cut was completed. All cuts were found to be adequate. All bony fragments were removed. The medial and lateral meniscus removed. Any posterior osteophytes were removed at this time. Trial implants were then placed. A size 3 trial tibia was placed, size 3 trial femur was placed. The patient had a 9 mm polyethylene trial placed and the patient's knee was brought into full extension. The patient had no varus-valgus instability with Ticies robot in either 0 or 90 degrees. The box cut was then completed on the femur at this time. Tibia was stamped and drilled in the proper rotation. Cement was mixed on the back table. All cut surfaces were irrigated with pulsed lavage irrigation with Ancef and then completely dried. Once the cement was ready, the size 3 tibia was cement[address] in place, the size 3 [address] in [address]. The patient had a 9 mm PS X3 polyethylene placed. The patient's knee was brought to full extension. All excess cement was removed. 29 x 9 mm patella was then cemented into place. 1 L pulsed lavage irrigation with Ancef was irrigated through the knee along with 400 mL Irrisept irrigation. Periarticular injection was completed. Topical tranexamic acid and vancomycin powder were applied intra-incisionally. #2 barbed suture was used for closure of the medial parapatellar arthrotomy, 2-0 Vicryl and Stratafix were used for subcutaneous closure, and Prineo was used for skin closure. The patient had a sterile soft dressing applied and was sent to the PACU in stable condition. Before this was done, under sterile technique, 2 mL of 40 mg of Kenalog and 4 mL of 0.25% Marcaine were injected to the right knee as well. MMODAL /[id number]
== END 2020-05-20 13:45 | disposition home or self-care (01) ==
LOC: JD.SDS 07:59 → JD.OB 16:19 → JD.SDS 05-20 13:45
PROVIDERS: ATTEND Orthopaedic Surgery
DX: M17.0 Bilateral primary osteoarthritis of knee (principal); G89.29 Other chronic pain; I10 Essential (primary) hypertension; E78.00 Pure hypercholesterolemia, unspecified; E78.5 Hyperlipidemia, unspecified; D75.89 Other specified diseases of blood and blood-forming organs; F41.9 Anxiety disorder, unspecified; R51.9 Headache, unspecified; Z01.812 Encounter for preprocedural laboratory examination; Z20.822 Contact with and (suspected) exposure to COVID-19; Z79.82 Long term (current) use of aspirin; Z79.899 Other long term (current) drug therapy; Z98.890 Other specified postprocedural states
CPT/HCPCS: 20610; 27447; 73560; 97116; 97161; 97165; 97530; 97535; A9270; C1713; C1776; J0171; J0690; J0697; J1170; J1885; J2250; J2270; J2405; J2704; J2795; J3010; J3301; J3370; J3490; J7120; U0002; 01402; 64450; 87641; 99100

== ENCOUNTER 2020-06-09 15:10 | Inpatient (IN) | payer MEDICARE, MEDICAID ==
[2020-06-09] MEDS ORDERED: Sodium Chloride 0.9% 10 ML Syringe FLUSH PRN (16:05)
[2020-06-09] MEDS ORDERED: cefTRIAXone 2 GM in Sodium Chloride 0.9% 100 ML IV ONE ×2 (16:05→16:22)
[2020-06-09] MEDS ORDERED: Sodium Chloride 0.9% 1,000 ML IV ONE (16:05)
[2020-06-09] MEDS ORDERED: Acetaminophen 325 MG Tab PO ONE (16:08)
--- NOTE | 2020-06-09 17:51 | EDM.PDOC ---
ED HPI GENERAL MEDICAL PROBLEM - General Chief Complaint: Fever Stated Complaint: DIZZINESS/FEVER Time Seen by Provider: 06/09/20 15:38 Source of Information: Reports: Patient History Limitations: Reports: No Limitations - History of Present Illness INITIAL COMMENTS - FREE TEXT/NARRATIVE: The patient presents with a fever and chills. This has been going on for a few days. She has a slight cough. Her temp was 103 at home and 101.4 here. She has no chest pain or shortness of breath. She has no abdominal pain, nausea or vomiting. She says she has no dysuria but she is going more often. She had knee replacement 3 weeks ago. There is no problems with the leg. She has some dizziness and she is light headed. Onset: Gradual Duration: Day(s): Severity: Moderate Improves with: Reports: None Worsens with: Reports: None Associated Symptoms: Reports: Cough, Fever/Chills. Denies: Chest Pain, Headaches, Nausea/Vomiting, Shortness of Breath - Related Data Allergies Allergy/AdvReac Type Severity Reaction Status Date / Time No Known Allergies Allergy Verified 06/09/20 15:39 Home Meds: Home Meds Ascorbate Calcium [Vitamin C] 500 mg PO DAILY 05/07/17 [History] Sertraline [Zoloft] 75 mg PO DAILY 05/07/17 [History] amLODIPine [Norvasc] 5 mg PO DAILY 05/07/17 [History] Calcium Carb/D3/Magnesium/Zinc [Ketan Mag Zinc-D Tablet] 1 tab PO BID 03/16/18 [History] Rosuvastatin [Crestor] 10 mg PO DAILY 03/16/18 [History] hydroCHLOROthiazide [Hydrochlorothiazide] 25 mg PO DAILY 03/16/18 [History] Cholecalciferol (Vitamin D3) [Vitamin D3] 5,000 unit PO DAILY 05/18/20 [History] Losartan [Cozaar] 50 mg PO DAILY 05/18/20 [History] Potassium Chloride 20 meq PO DAILY 05/18/20 [History] tiZANidine HCl [Zanaflex] 4 mg PO DAILY 05/18/20 [History] Acetaminophen/HYDROcodone [[place] 325-5 MG] 1 - 2 tab PO Q4H PRN #40 tablet 05/19/20 [Rx] Aspirin [Aspirin EC] 325 mg PO BID #84 tab 05/19/20 [Rx] Past Medical History HEENT History: Reports: Impaired Vision Cardiovascular History: Reports: High Cholesterol, Hypertension, Other (See Below) Other Cardiovascular History: bradycardia Respiratory History: Reports: Other (See Below) Other Respiratory History: shortness of breath with exertion Gastrointestinal History: Reports: Colon Polyp, Hiatal Hernia Genitourinary History: Reports: Other (See Below) Other Genitourinary History: cystocele, rectocele, prolapse, bladder dysfunction, urinary frequency [employer] History: Reports: None Musculoskeletal History: Reports: Arthritis, Fibromyalgia, Other (See Below) Other Musculoskeletal History: left knee pain Neurological History: Reports: None Psychiatric History: Reports: Anxiety, Depression Endocrine/Metabolic History: Reports: None Hematologic History: Reports: None Immunologic History: Reports: None Oncologic (Cancer) History: Reports: None Dermatologic History: Reports: None - Infectious Disease History Infectious Disease History: Reports: None - Past Surgical History Head Surgeries/Procedures: Reports: None HEENT Surgical History: Reports: Tonsillectomy Cardiovascular Surgical History: Reports: None Respiratory Surgical History: Reports: None GI Surgical History: Reports: Colonoscopy Female Surgical History: Reports: Breast Biopsy, Hysterectomy, Other (See Below) Other Female Surgeries/Procedures: bladder repair Endocrine Surgical History: Reports: None Neurological Surgical History: Reports: None Musculoskeletal Surgical History: Reports: None Oncologic Surgical History: Reports: None Dermatological Surgical History: Reports: None Social & Family History - Family History Family Medical History: No Pertinent Family History - Tobacco Use Tobacco Use Status *Q: Never Tobacco User - Caffeine Use Caffeine Use: Reports: Coffee - Recreational Drug Use Recreational Drug Use: No - Living Situation & Occupation Living situation: Reports: Occupation: Employed ED ROS GENERAL - Review of Systems Review Of Systems: See Below Constitutional: Reports: Fever, Chills, Weakness, Fatigue HEENT: Reports: No Symptoms Respiratory: Reports: Cough. Denies: Shortness of Breath Cardiovascular: Reports: No Symptoms Endocrine: Reports: No Symptoms GI/Abdominal: Reports: No Symptoms : Reports: Frequency. Denies: Dysuria Musculoskeletal: Reports: No Symptoms Skin: Reports: No Symptoms ED EXAM, SEPSIS - Physical Exam Exam: See Below Exam Limited By: No Limitations General Appearance: Alert, No Apparent Distress Ears: Normal External Exam Nose: Normal Inspection Head: Atraumatic, Normocephalic Neck: Normal Inspection Respiratory/Chest: No Respiratory Distress, Lungs Clear, Normal Breath Sounds Cardiovascular: Regular Rate, Rhythm, No Edema, No Murmur GI/Abdominal Exam: Soft, Non-Tender, No Organomegaly, No Mass Back: Normal Inspection Extremities: Other (Left knee has a bandage on it but there is no erythema, edema or darinage.) Course - Vital Signs Last Recorded V/S: Last Vital Signs Temp 100.9 F H 06/09/20 17:26 Pulse 86 06/09/20 15:35 Resp 18 06/09/20 17:26 BP 124/72 06/09/20 17:26 Pulse Ox 93 L 06/09/20 17:26 - Orders/Labs/Meds Orders: Active Orders 24 hr Category Date Time Status Blood Pressure Mgt: Sepsis [RC] Q15MX2 Care 06/09/20 16:06 Active Chest 1V Frontal [CR] Stat Exams 06/09/20 16:05 Taken CORONAVIRUS COVID-19 ZAC [MOLEC] Stat Lab 06/09/20 18:26 Received CULTURE BLOOD [BC] Stat Lab 06/09/20 16:30 Received CULTURE BLOOD [BC] Stat Lab 06/09/20 16:38 Received UA W/MICROSCOPIC [URIN] Stat Lab 06/09/20 18:19 Results Sodium Chloride 0.9% [Saline Flush] Med 06/09/20 16:05 Active 10 ml FLUSH ASDIRECTED PRN Blood Culture x2 Reflex Set [OM.PC] Stat Oth 06/09/20 16:05 Ordered Saline Lock Insert [OM.PC] Stat Oth 06/09/20 16:05 Ordered Medication Orders Sodium Chloride (Sodium Chloride 0.9% 10 Ml Syringe) 10 ml FLUSH ASDIRECTED PRN PRN Reason: Keep Vein Open Last Admin: 06/09/20 16:42 Dose: 10 ml Documented by: VERONICA Labs: Laboratory Tests 06/09/20 06/09/20 06/09/20 Range/Units 15:40 15:40 15:40 WBC 12.96 H (3.98-10.04) K/mm3 RBC 3.56 L (3.98-5.22) M/mm3 Hgb 11.8 (11.2-15.7) gm/dl Hct 36.3 (34.1-44.9) % MCV 102.0 H (79.4-94.8) fl MCH 33.1 H (25.6-32.2) pg MCHC 32.5 (32.2-35.5) g/dl RDW Std Deviation 51.5 H (36.4-46.3) fL Plt Count 316 (182-369) K/mm3 MPV 9.5 (9.4-12.3) fl Neutrophils % (Manual) 81 H (40-60) % Band Neutrophils % 0 (0-10) % Lymphocytes % (Manual) 15 L (20-40) % Atypical Lymphs % 0 % Monocytes % (Manual) 3 (2-10) % Eosinophils % (Manual) 0 L (0.7-5.8) % Basophils % (Manual) 1 (0.1-1.2) Platelet Estimate Adequate Anisocytosis 1+ slight Macrocytosis 1+ slight RBC Morph Comment Not Reportable PT 10.7 (9.7-12.0) SECONDS INR 1.00 Sodium 140 (136-145) mEq/L Potassium 3.7 (3.5-5.1) mEq/L Chloride 100 (98-107) mEq/L Carbon Dioxide 24 (21-32) mEq/L Anion Gap 19.7 H (5-15) BUN 15 (7-18) mg/dL Creatinine 0.9 (0.55-1.02) mg/dL Est Cr Clr Drug Dosing 40.09 mL/min Estimated GFR (MDRD) > 60 (>60) mL/min BUN/Creatinine Ratio 16.7 (14-18) Glucose 120 H (83-115) mg/dL Lactic Acid (0.4-2.0) mmol/L Calcium 9.3 (8.5-10.1) mg/dL Total Bilirubin 0.8 (0.2-1.0) mg/dL AST 34 (15-37) U/L ALT 28 (14-59) U/L Alkaline Phosphatase 53 (46-116) U/L C-Reactive Protein 28.5 H* (<1.0) mg/dL Total Protein 7.4 (6.4-8.2) g/dl Albumin 3.2 L (3.4-5.0) g/dl Globulin 4.2 gm/dL Albumin/Globulin Ratio 0.8 L (1-2) Urine Color (Yellow) Urine Appearance (Clear) Urine pH (5.0-8.0) Ur Specific [place] (1.005-1.030) Urine Protein (Negative) Urine Glucose (UA) (Negative) Urine Ketones (Negative) Urine Occult Blood (Negative) Urine Nitrite (Negative) Urine Bilirubin (Negative) Urine Urobilinogen (0.2-1.0) Ur Leukocyte Esterase (Negative) 06/09/20 06/09/20 Range/Units 16:38 18:19 WBC (3.98-10.04) K/mm3 RBC (3.98-5.22) M/mm3 Hgb (11.2-15.7) gm/dl Hct (34.1-44.9) % MCV (79.4-94.8) fl MCH (25.6-32.2) pg MCHC (32.2-35.5) g/dl RDW Std Deviation (36.4-46.3) fL Plt Count (182-369) K/mm3 MPV (9.4-12.3) fl Neutrophils % (Manual) (40-60) % Band Neutrophils % (0-10) % Lymphocytes % (Manual) (20-40) % Atypical Lymphs % % Monocytes % (Manual) (2-10) % Eosinophils % (Manual) (0.7-5.8) % Basophils % (Manual) (0.1-1.2) Platelet Estimate Anisocytosis Macrocytosis RBC Morph Comment PT (9.7-12.0) SECONDS INR Sodium (136-145) mEq/L Potassium (3.5-5.1) mEq/L Chloride (98-107) mEq/L Carbon Dioxide (21-32) mEq/L Anion Gap (5-15) BUN (7-18) mg/dL Creatinine (0.55-1.02) mg/dL Est Cr Clr Drug Dosing mL/min Estimated GFR (MDRD) (>60) mL/min BUN/Creatinine Ratio (14-18) Glucose (83-115) mg/dL Lactic Acid 0.9 (0.4-2.0) mmol/L Calcium (8.5-10.1) mg/dL Total Bilirubin (0.2-1.0) mg/dL AST (15-37) U/L ALT (14-59) U/L Alkaline Phosphatase (46-116) U/L C-Reactive Protein (<1.0) mg/dL Total Protein (6.4-8.2) g/dl Albumin (3.4-5.0) g/dl Globulin gm/dL Albumin/Globulin Ratio (1-2) Urine Color Yellow (Yellow) Urine Appearance Clear (Clear) Urine pH 6.0 (5.0-8.0) Ur Specific [place] 1.020 (1.005-1.030) Urine Protein 1+ H (Negative) Urine Glucose (UA) Negative (Negative) Urine Ketones Trace H (Negative) Urine Occult Blood 1+ H (Negative) Urine Nitrite Positive H (Negative) Urine Bilirubin Negative (Negative) Urine Urobilinogen 0.2 (0.2-1.0) Ur Leukocyte Esterase 3+ H (Negative) Meds: Medications Generic Name Dose Route Start Last Admin Trade Name Freq PRN Reason Stop Dose Admin Sodium Chloride 10 ml 06/09/20 16:05 06/09/20 16:42 Sodium Chloride 0.9% 10 Ml Syringe FLUSH 10 ml ASDIRECTED PRN Administration Keep Vein Open Discontinued Medications Generic Name Dose Route Start Last Admin Trade Name Freq PRN Reason Stop Dose Admin Acetaminophen 975 mg 06/09/20 16:08 06/09/20 16:42 Acetaminophen 325 Mg Tab PO 06/09/20 16:09 975 mg NOW ONE Administration Ceftriaxone Sodium 2 gm/ 100 mls @ 200 mls/hr 06/09/20 16:05 06/09/20 16:22 Sodium Chloride IV 06/09/20 16:34 Not Given STAT ONE Sodium Chloride 1,000 mls @ 1,000 mls/hr 06/09/20 16:05 06/09/20 16:42 Normal Saline IV 06/09/20 17:04 1,000 mls/hr BOLUS ONE Administration Protocol Ceftriaxone Sodium 2 gm/ 100 mls @ 200 mls/hr 06/09/20 16:22 06/09/20 16:42 Sodium Chloride IV 06/09/20 16:51 200 mls/hr ONETIME ONE Administration - Re-Assessments/Exams Free Text/Narrative Re-Assessment/Exam: 06/09/20 17:52 I ordered an IV NS 1L bolus, blood cultures, lactic acid, CXR, UA, rocephin 2 grams IV. Her WBC is elevated at 12.96. Her PT is normal. Her anion gap is elevated at 19.7. Her glucose is elevated at 120. Her lactic acid is normal at 0.9. Her CRP is elevated at 28.5. I am waiting on her UA now. I suspect she has sepsis from a UTI. 06/09/20 18:42 Her urine does show a UTI. She has sepsis from a UTI. I feel she needs to be admitted. I called Dr Baeza and he agreed to the admission. Departure - Departure Time of Disposition: 18:55 Disposition: Admitted As Inpatient 67 Condition: Fair Clinical Impression: Sepsis Qualifiers: Sepsis type: sepsis due to unspecified organism Sepsis acute organ dysfunction status: unspecified Qualified Code(s): A41.9 - Sepsis, unspecified organism - Discharge Information Referrals: Elsy Mayfield MD [Primary Care Provider] - Forms: ED Department Discharge Sepsis Event Note (ED) - Evaluation Sepsis Screening Result: No Definite Risk - Focused Exam Vital Signs: Vital Signs Temp Pulse Resp BP Pulse Ox 06/09/20 17:26 100.9 F H 18 124/72 93 L 06/09/20 16:46 103 F H 19 119/64 94 L 06/09/20 16:21 116/64 06/09/20 16:06 127/81 06/09/20 15:35 101.4 F H 86 18 143/99 H 98 - My Orders Last 24 Hours: My Active Orders 06/09/20 16:05 Chest 1V Frontal [CR] Stat Sodium Chloride 0.9% [Saline Flush] 10 ml FLUSH ASDIRECTED PRN Blood Culture x2 Reflex Set [OM.PC] Stat Saline Lock Insert [OM.PC] Stat 06/09/20 16:06 Blood Pressure Mgt: Sepsis [RC] Q15MX2 06/09/20 16:30 CULTURE BLOOD [BC] Stat 06/09/20 16:38 CULTURE BLOOD [BC] Stat 06/09/20 18:19 UA W/MICROSCOPIC [URIN] Stat 06/09/20 18:26 CORONAVIRUS COVID-19 ZAC [MOLEC] Stat - Assessment/Plan Last 24 Hours: My Active Orders 06/09/20 16:05 Chest 1V Frontal [CR] Stat Sodium Chloride 0.9% [Saline Flush] 10 ml FLUSH ASDIRECTED PRN Blood Culture x2 Reflex Set [OM.PC] Stat Saline Lock Insert [OM.PC] Stat 06/09/20 16:06 Blood Pressure Mgt: Sepsis [RC] Q15MX2 06/09/20 16:30 CULTURE BLOOD [BC] Stat 06/09/20 16:38 CULTURE BLOOD [BC] Stat 06/09/20 18:19 UA W/MICROSCOPIC [URIN] Stat 06/09/20 18:26 CORONAVIRUS COVID-19 ZAC [MOLEC] Stat
[2020-06-09] MEDS ORDERED: Promethazine 12.5 MG in Sodium Chloride 0.9% 50 ML IV PRN (19:47)
[2020-06-09] MEDS ORDERED: Morphine 2 MG/ML SYRINGE IVPUSH PRN (19:47)
[2020-06-09] MEDS ORDERED: Albuterol/Ipratropium 3.0-0.5 MG/3 ML Neb Soln NEB PRN (19:47)
[2020-06-09] MEDS ORDERED: Acetaminophen 650 MG Supp RECTAL PRN (19:47)
[2020-06-09] MEDS ORDERED: hydrALAZINE 20 MG/ML SDV IVPUSH PRN (19:53)
[2020-06-09] MEDS ORDERED: traMADol 50 MG Tab PO PRN (19:55)
--- NOTE | 2020-06-09 20:09 | PCM.HP.2 ---
H&P History of Present Illness - General Date of Service: 06/09/20 Admit Problem/Dx: Admission Diagnosis/Problem Admission Diagnosis/Problem Urinary tract infection Source of Information: Patient, Provider - History of Present Illness Initial Comments - Free Text/Narative: Pt is a 80 yof with a hx of HTN who presented to the ER due to fever and chills for days. Pt started to have fever and chills associated with mild dizziness and fatique days ago. She also reports that she urinates more frequently. Otherwise she is fine. Denies headache, chest pain, sob, runny nose, abdominal pain, nausea, vomiting or dysuria. In the ER, UA compatible with UTI. 1L NS and one dose of ceftriaxone 2g were given. She was admitted to hospital for sepsis and UTI. Pt underwent arthroplasty 3 weeks ago. - Related Data Allergies/Adverse Reactions: Allergies Allergy/AdvReac Type Severity Reaction Status Date / Time No Known Allergies Allergy Verified 06/09/20 15:39 Home Medications: Home Meds Ascorbate Calcium [Vitamin C] 500 mg PO DAILY 05/07/17 [History] Sertraline [Zoloft] 75 mg PO DAILY 05/07/17 [History] amLODIPine [Norvasc] 5 mg PO DAILY 05/07/17 [History] Rosuvastatin [Crestor] 10 mg PO BEDTIME 03/16/18 [History] hydroCHLOROthiazide [Hydrochlorothiazide] 25 mg PO DAILY 03/16/18 [History] Cholecalciferol (Vitamin D3) [Vitamin D3] 5,000 unit PO DAILY 05/18/20 [History] Losartan [Cozaar] 50 mg PO DAILY 05/18/20 [History] Potassium Chloride 20 meq PO DAILY 05/18/20 [History] tiZANidine HCl [Zanaflex] 4 mg PO BEDTIME 05/18/20 [History] Aspirin [Aspirin EC] 325 mg PO BID #84 tab 05/19/20 [Rx] Past Medical History HEENT History: Reports: Impaired Vision Cardiovascular History: Reports: High Cholesterol, Hypertension, Other (See Below) Other Cardiovascular History: bradycardia Respiratory History: Reports: Other (See Below) Other Respiratory History: shortness of breath with exertion Gastrointestinal History: Reports: Colon Polyp, Hiatal Hernia Genitourinary History: Reports: Other (See Below) Other Genitourinary History: cystocele, rectocele, prolapse, bladder dysfunction, urinary frequency VAT PACKER History: Reports: None Musculoskeletal History: Reports: Arthritis, Fibromyalgia, Other (See Below) Other Musculoskeletal History: left knee pain Neurological History: Reports: None Psychiatric History: Reports: Anxiety, Depression Endocrine/Metabolic History: Reports: None Hematologic History: Reports: None Immunologic History: Reports: None Oncologic (Cancer) History: Reports: None Dermatologic History: Reports: None - Infectious Disease History Infectious Disease History: Reports: None - Past Surgical History Head Surgeries/Procedures: Reports: None HEENT Surgical History: Reports: Tonsillectomy Cardiovascular Surgical History: Reports: None Respiratory Surgical History: Reports: None GI Surgical History: Reports: Colonoscopy Female Surgical History: Reports: Breast Biopsy, Hysterectomy, Other (See Below) Other Female Surgeries/Procedures: bladder repair Endocrine Surgical History: Reports: None Neurological Surgical History: Reports: None Musculoskeletal Surgical History: Reports: None Oncologic Surgical History: Reports: None Dermatological Surgical History: Reports: None Social & Family History - Family History Family Medical History: No Pertinent Family History (Denies genetic diseases in family) - Tobacco Use Tobacco Use Status *Q: Never Tobacco User - Caffeine Use Caffeine Use: Reports: Coffee - Recreational Drug Use Recreational Drug Use: No - Living Situation & Occupation Living situation: Reports: Occupation: Employed H&P Review of Systems - Review of Systems: Review Of Systems: See Below General: Reports: Fever, Chills, Fatigue HEENT: Reports: No Symptoms Pulmonary: Reports: No Symptoms Cardiovascular: Reports: No Symptoms Gastrointestinal: Reports: No Symptoms Genitourinary: Reports: Frequency Musculoskeletal: Reports: No Symptoms Skin: Reports: No Symptoms Psychiatric: Reports: No Symptoms Neurological: Reports: Dizziness Hematologic/Lymphatic: Reports: No Symptoms Immunologic: Reports: No Symptoms Exam - Exam Exam: See Below - Vital Signs Vital Signs: Last Vital Signs Temp 37.6 C 06/09/20 19:06 Pulse 86 06/09/20 15:35 Resp 18 06/09/20 19:06 BP 143/75 H 06/09/20 19:06 Pulse Ox 95 06/09/20 19:06 Weight: 61.507 kg - Exam General: Alert, Oriented, Cooperative HEENT: Conjunctiva Clear, EOMI, Pupils Equal, Pupils Reactive Neck: Supple, Trachea Midline, Full Range of Motion Lungs: Clear to Auscultation, Normal Respiratory Effort Cardiovascular: Regular Rate, Regular Rhythm GI/Abdominal Exam: Normal Bowel Sounds, Soft, Non-Tender, No Organomegaly, No Distention Extremities: Normal Inspection, Normal Range of Motion, Non-Tender, No Pedal Edema Skin: Warm, Dry, Intact Neurological: Cranial Nerves Intact, Reflexes Equal Bilateral, Strength Equal Bilateral, Normal Speech Neuro Extensive - Mental Status: Alert, Oriented x3, Normal Mood/Affect Neuro Extensive - Motor, Sensory, Reflexes: CN II-XII Intact, Normal Reflexes Psychiatric: Normal Affect, Normal Mood - Patient Data Lab Results Last 24 hrs: Laboratory Results - last 24 hr 06/09/20 06/09/20 06/09/20 Range/Units 15:40 15:40 15:40 WBC 12.96 H (3.98-10.04) K/mm3 RBC 3.56 L (3.98-5.22) M/mm3 Hgb 11.8 (11.2-15.7) gm/dl Hct 36.3 (34.1-44.9) % MCV 102.0 H (79.4-94.8) fl MCH 33.1 H (25.6-32.2) pg MCHC 32.5 (32.2-35.5) g/dl RDW Std Deviation 51.5 H (36.4-46.3) fL Plt Count 316 (182-369) K/mm3 MPV 9.5 (9.4-12.3) fl Neutrophils % (Manual) 81 H (40-60) % Band Neutrophils % 0 (0-10) % Lymphocytes % (Manual) 15 L (20-40) % Atypical Lymphs % 0 % Monocytes % (Manual) 3 (2-10) % Eosinophils % (Manual) 0 L (0.7-5.8) % Basophils % (Manual) 1 (0.1-1.2) Platelet Estimate Adequate Anisocytosis 1+ slight Macrocytosis 1+ slight RBC Morph Comment Not Reportable PT 10.7 (9.7-12.0) SECONDS INR 1.00 Sodium 140 (136-145) mEq/L Potassium 3.7 (3.5-5.1) mEq/L Chloride 100 (98-107) mEq/L Carbon Dioxide 24 (21-32) mEq/L Anion Gap 19.7 H (5-15) BUN 15 (7-18) mg/dL Creatinine 0.9 (0.55-1.02) mg/dL Est Cr Clr Drug Dosing 40.09 mL/min Estimated GFR (MDRD) > 60 (>60) mL/min BUN/Creatinine Ratio 16.7 (14-18) Glucose 120 H (83-115) mg/dL Lactic Acid (0.4-2.0) mmol/L Calcium 9.3 (8.5-10.1) mg/dL Total Bilirubin 0.8 (0.2-1.0) mg/dL AST 34 (15-37) U/L ALT 28 (14-59) U/L Alkaline Phosphatase 53 (46-116) U/L C-Reactive Protein 28.5 H* (<1.0) mg/dL Total Protein 7.4 (6.4-8.2) g/dl Albumin 3.2 L (3.4-5.0) g/dl Globulin 4.2 gm/dL Albumin/Globulin Ratio 0.8 L (1-2) Urine Color (Yellow) Urine Appearance (Clear) Urine pH (5.0-8.0) Ur Specific [place] (1.005-1.030) Urine Protein (Negative) Urine Glucose (UA) (Negative) Urine Ketones (Negative) Urine Occult Blood (Negative) Urine Nitrite (Negative) Urine Bilirubin (Negative) Urine Urobilinogen (0.2-1.0) Ur Leukocyte Esterase (Negative) Urine RBC (0-5) /hpf Urine WBC (0-5) /hpf Ur Squamous Epith Cells (0-5) /hpf Urine Bacteria (FEW) /hpf Urine Mucus (FEW) /hpf SARS-CoV-2 RNA (ZAC) (NEGATIVE) 06/09/20 06/09/20 06/09/20 Range/Units 16:38 18:19 18:26 WBC (3.98-10.04) K/mm3 RBC (3.98-5.22) M/mm3 Hgb (11.2-15.7) gm/dl Hct (34.1-44.9) % MCV (79.4-94.8) fl MCH (25.6-32.2) pg MCHC (32.2-35.5) g/dl RDW Std Deviation (36.4-46.3) fL Plt Count (182-369) K/mm3 MPV (9.4-12.3) fl Neutrophils % (Manual) (40-60) % Band Neutrophils % (0-10) % Lymphocytes % (Manual) (20-40) % Atypical Lymphs % % Monocytes % (Manual) (2-10) % Eosinophils % (Manual) (0.7-5.8) % Basophils % (Manual) (0.1-1.2) Platelet Estimate Anisocytosis Macrocytosis RBC Morph Comment PT (9.7-12.0) SECONDS INR Sodium (136-145) mEq/L Potassium (3.5-5.1) mEq/L Chloride (98-107) mEq/L Carbon Dioxide (21-32) mEq/L Anion Gap (5-15) BUN (7-18) mg/dL Creatinine (0.55-1.02) mg/dL Est Cr Clr Drug Dosing mL/min Estimated GFR (MDRD) (>60) mL/min BUN/Creatinine Ratio (14-18) Glucose (83-115) mg/dL Lactic Acid 0.9 (0.4-2.0) mmol/L Calcium (8.5-10.1) mg/dL Total Bilirubin (0.2-1.0) mg/dL AST (15-37) U/L ALT (14-59) U/L Alkaline Phosphatase (46-116) U/L C-Reactive Protein (<1.0) mg/dL Total Protein (6.4-8.2) g/dl Albumin (3.4-5.0) g/dl Globulin gm/dL Albumin/Globulin Ratio (1-2) Urine Color Yellow (Yellow) Urine Appearance Clear (Clear) Urine pH 6.0 (5.0-8.0) Ur Specific [place] 1.020 (1.005-1.030) Urine Protein 1+ H (Negative) Urine Glucose (UA) Negative (Negative) Urine Ketones Trace H (Negative) Urine Occult Blood 1+ H (Negative) Urine Nitrite Positive H (Negative) Urine Bilirubin Negative (Negative) Urine Urobilinogen 0.2 (0.2-1.0) Ur Leukocyte Esterase 3+ H (Negative) Urine RBC 10-20 H (0-5) /hpf Urine WBC 40-50 H (0-5) /hpf Ur Squamous Epith Cells 5-10 H (0-5) /hpf Urine Bacteria Many H (FEW) /hpf Urine Mucus Not seen (FEW) /hpf SARS-CoV-2 RNA (ZAC) Negative (NEGATIVE) Result Diagrams: 06/09/20 15:40 06/09/20 15:40 Sepsis Event Note - Evaluation Sepsis Screening Result: No Definite Risk - Focused Exam Vital Signs: Vital Signs Temp Pulse Resp BP Pulse Ox 06/09/20 19:06 37.6 C 18 143/75 H 95 06/09/20 17:26 38.3 C H 18 124/72 93 L 06/09/20 16:46 39.4 C H 19 119/64 94 L 06/09/20 16:21 116/64 06/09/20 16:06 127/81 06/09/20 15:35 38.6 C H 86 18 143/99 H 98 Problem List Initiated/Reviewed/Updated: Yes Orders Last 24hrs: Active Orders 24 hr Category Date Time Status Patient Status [ADT] Routine ADT 06/09/20 19:26 Active Bedrest Bedside Commode [RC] ASDIRECTED Care 06/09/20 19:47 Active Blood Pressure Mgt: Sepsis [RC] [id number] Care 06/09/20 16:06 Active Cardiac Monitoring [RC] CONTINUOUS Care 06/09/20 19:48 Active EKG Documentation Completion [RC] ROUTINE Care 06/09/20 19:51 Active Height and Weight [RC] DAILY Care 06/09/20 19:47 Active Intake and Output [RC] QSHIFT Care 06/09/20 19:47 Active Oxygen Therapy [RC] PRN Care 06/09/20 19:47 Active RT Aerosol Therapy [RC] ASDIRECTED Care 06/09/20 19:50 Active VTE/DVT Education [RC] PER UNIT ROUTINE Care 06/09/20 19:47 Active Vital Signs [RC] Q4H Care 06/09/20 19:47 Active OT Evaluation and Treatment [CONS] Routine Cons 06/09/20 19:51 Active PT Evaluation and Treatment [CONS] Routine Cons 06/09/20 19:51 Active Regular Diet [DIET] Diet 06/09/20 Dinner Active Chest 1V Frontal [CR] Stat Exams 06/09/20 16:05 Taken CBC WITH AUTO DIFF [HEME] DAILY Lab 06/10/20 05:00 Ordered CBC WITH AUTO DIFF [HEME] DAILY Lab 06/11/20 05:00 Ordered CBC WITH AUTO DIFF [HEME] DAILY Lab 04/01/21 05:00 Ordered CBC WITH AUTO DIFF [HEME] DAILY Lab 06/13/20 05:00 Ordered COMPREHENSIVE METABOLIC PN,CMP [CHEM] DAILY Lab 06/10/20 05:00 Ordered COMPREHENSIVE METABOLIC PN,CMP [CHEM] DAILY Lab 06/11/20 05:00 Ordered COMPREHENSIVE METABOLIC PN,CMP [CHEM] DAILY Lab 06/12/20 05:00 Ordered COMPREHENSIVE METABOLIC PN,CMP [CHEM] DAILY Lab 06/13/20 05:00 Ordered CULTURE BLOOD [BC] Stat Lab 06/09/20 16:30 Received CULTURE BLOOD [BC] Stat Lab 06/09/20 16:38 Received CULTURE URINE [RM] Stat Lab 06/09/20 18:17 Received MAGNESIUM [CHEM] Routine Lab 06/09/20 16:38 Received PHOSPHORUS [CHEM] Routine Lab 06/09/20 16:38 Received PRO B-TYPE NATRIUR PEPT,BNPPRO [CHEM] Routine Lab 06/09/20 19:59 Ordered TROPONIN I [CHEM] Q6H Lab 06/09/20 16:38 Received TROPONIN I [CHEM] Q6H Lab 06/10/20 01:51 Ordered Acetaminophen [Tylenol] Med 06/09/20 19:47 Ordered 650 mg RECTAL Q4H PRN Albuterol/Ipratropium [DuoNeb 3.0-0.5 MG/3 ML] Med 06/09/20 19:47 Ordered 3 ml NEB Q4H PRN Aspirin [Ecotrin] Med 06/09/20 21:00 Ordered 325 mg PO BID Cholecalciferol (Vitamin D3) [Vitamin D3] Med 06/10/20 09:00 Ordered 5,000 unit PO DAILY Enoxaparin [Lovenox] Med 06/09/20 20:00 Ordered 40 mg SUBCUT DAILY Lactated Ringers [Ringers, Lactated] 1,000 ml Med 06/09/20 20:00 Ordered IV ASDIRECTED Losartan [Cozaar] Med 06/10/20 09:00 Ordered 50 mg PO DAILY Morphine Med 06/09/20 19:47 Ordered 2 mg IVPUSH Q4H PRN Promethazine [Phenergan] 12.5 mg Med 06/09/20 19:47 Ordered Sodium Chloride 0.9% [Normal Saline] 50 ml IV Q6H Rosuvastatin [Crestor] Med 06/09/20 21:00 Ordered 10 mg PO BEDTIME Sertraline [Zoloft] Med 06/10/20 09:00 Ordered 75 mg PO DAILY Sodium Chloride 0.9% [Saline Flush] Med 06/09/20 16:05 Active 10 ml FLUSH ASDIRECTED PRN amLODIPine Med 06/10/20 09:00 Ordered 5 mg PO DAILY cefTRIAXone [Rocephin] 1 gm Med 06/09/20 20:00 Ordered Sodium Chloride 0.9% [Normal Saline] 100 ml IV Q24H hydrALAZINE [Apresoline] Med 06/09/20 19:53 Ordered 10 mg IVPUSH Q4H PRN hydroCHLOROthiazide Med 06/10/20 09:00 Ordered 25 mg PO DAILY tiZANidine HCl [Zanaflex] Med 06/09/20 21:00 Ordered 4 mg PO BEDTIME traMADol [Ultram] Med 06/09/20 19:55 Ordered 50 mg PO Q6H PRN Blood Culture x2 Reflex Set [OM.PC] Stat Ot 06/09/20 16:05 Ordered Saline Lock Insert [OM.PC] Stat Oth 06/09/20 16:05 Ordered Medication Orders Acetaminophen (Acetaminophen 650 Mg Supp) 650 mg RECTAL Q4H PRN PRN Reason: Pain (mild 1-3) Albuterol/Ipratropium (Albuterol/Ipratropium 3.0-0.5 Mg/3 Ml Neb Soln) 3 ml NEB Q4H PRN PRN Reason: Shortness Of Breath/wheezing Aspirin (Aspirin 325 Mg Tab.Ec) 325 mg PO BID [facility] Cholecalciferol (Cholecalciferol (Vitamin D3) 5,000 Unit Cap) 5,000 unit PO DAILY [facility] Enoxaparin Sodium (Enoxaparin 40 Mg/0.4 Ml Syringe) 40 mg SUBCUT DAILY [facility] Hydralazine HCl (Hydralazine 20 Mg/Ml Sdv) 10 mg IVPUSH Q4H PRN PRN Reason: Hypertension Hydrochlorothiazide (Hydrochlorothiazide 25 Mg Tab) 25 mg PO DAILY [facility] Lactated Ringer's (Ringers, Lactated) 1,000 mls @ 65 mls/hr IV ASDIRECTED [facility] Promethazine HCl 12.5 mg/ (Sodium Chloride) 50.5 mls @ 100 mls/hr IV Q6H PRN PRN Reason: Nausea/Vomiting Ceftriaxone Sodium 1 gm/ (Sodium Chloride) 100 mls @ 200 mls/hr IV Q24H [facility] Losartan Potassium (Losartan 50 Mg Tab) 50 mg PO DAILY [facility] Morphine Sulfate (Morphine 2 Mg/Ml Syringe) 2 mg IVPUSH Q4H PRN PRN Reason: Pain (severe 7-10) Stop: 06/10/20 19:49 Non-Formulary Medication (Amlodipine) 5 mg PO DAILY [facility] Non-Formulary Medication (Tizanidine Hcl [Zanaflex]) 4 mg PO BEDTIME [facility] Rosuvastatin Calcium (Rosuvastatin 10 Mg Tab) 10 mg PO BEDTIME [facility] Sertraline HCl (Sertraline 50 Mg Tab) 75 mg PO DAILY [facility] Sodium Chloride (Sodium Chloride 0.9% 10 Ml Syringe) 10 ml FLUSH ASDIRECTED PRN PRN Reason: Keep Vein Open Last Admin: 06/09/20 16:42 Dose: 10 ml Documented by: VERONICA Tramadol HCl (Tramadol 50 Mg Tab) 50 mg PO Q6H PRN PRN Reason: Pain (moderate 4-6) Assessment/Plan Comment:: Pt is a 80 yof with a hx of HTN who presented to the ER due to fever and chills for days. Pt started to have fever and chills associated with mild dizziness and fatique days ago. UA compatible with UTI. Assessment and plan: Early sepsis 2nd to UTI LA 0.9, CRP 28.5 Blood culture CXR pending 1L NS bolus was given in the ER Continue IVF antibiotics Leukocytosis Repeat CBC in am will order ceftriaxone for UTI UTI UA compatible with UTI Creatinine 0.9 Ceftriaxone 1g iv daily HTN Continue home meds amlodipine 5mg daily, losartan 50mg daily, HCTZ 25mg daily Hydralazine prn Depression/anxiety continue home sertraline. ativan 0.5mg iv Q6hrs prn DVT prophylaxis: lovenox Deposition: PT/OT - Mortality Measure Prognosis:: Good
[2020-06-09] MEDS: Enoxaparin 40 MG/0.4 ML Syringe SUBCUT SCH (20:49)
[2020-06-09] MEDS: tiZANidine 4 MG Tab PO SCH (21:06)
[2020-06-09] MEDS: Rosuvastatin 10 MG Tab PO SCH (21:06)
[2020-06-09] MEDS: Aspirin 325 MG Tab.EC PO SCH (21:09)
[2020-06-09] MEDS ORDERED: Ondansetron 4 MG/2 ML SDV IVPUSH PRN (22:28)
[2020-06-10] MEDS: Lactated Ringers 1,000 ML IV SCH (01:53)
[2020-06-10] MEDS: Acetaminophen 325 MG Tab PO PRN ×2 (02:12→21:27)
--- NOTE | 2020-06-10 08:04 | PCM.PN ---
- General Info Date of Service: 06/10/20 Admission Dx/Problem (Free Text): Admission Diagnosis/Problem Admission Diagnosis/Problem Urinary tract infection Subjective Update: In to see Yuliya. She is sitting up in bed. Her white count has improved. Urine culture is growing out gram-negative rods but it is noted that it is likely affected by antibiotics being given prior. No blood cultures have returned yet. Magnesium was 1.7 and potassium of 3.0 and these will be supplemented. She continues to work with PT and OT. Reports she is occasionally dizzy with ambul ation but otherwise feels fine. Likely discharge in 24 to 48 hours. Functional Status: Reports: Pain Controlled, Tolerating Diet, Ambulating, Urinating, Incentive Spirometry. Denies: New Symptoms - Review of Systems General: Reports: Weakness. Denies: Fever, Fatigue, Malaise, Chills HEENT: Reports: No Symptoms. Denies: Headaches, Sore Throat Pulmonary: Reports: Cough (Tickle in throat ). Denies: Shortness of Breath, Pleuritic Chest Pain, Sputum, Wheezing Cardiovascular: Reports: Lightheadedness (occasoinally with ambulation ). Denies: Chest Pain, Palpitations, Dyspnea on Exertion Gastrointestinal: Reports: Abdominal Pain (lower quadrant - chronic per patient ). Denies: Constipation, Diarrhea, Nausea, Vomiting Genitourinary: Reports: No Symptoms. Denies: Pain Musculoskeletal: Reports: No Symptoms Skin: Reports: No Symptoms. Denies: Cyanosis Neurological: Reports: Pre-Existing Deficit (Was utilizing walker ), Difficulty Walking, Weakness. Denies: Confusion, Gait Disturbance Psychiatric: Reports: No Symptoms - Patient Data Vitals - Most Recent: Last Vital Signs Temp 99.3 F 06/10/20 03:21 Pulse 73 06/10/20 03:22 Resp 18 06/10/20 03:21 BP 115/96 H 06/10/20 03:22 Pulse Ox 94 L 06/10/20 03:22 Weight - Most Recent: 135 lb I&O - Last 24 Hours: Intake & Output 06/09/20 06/10/20 06/10/20 22:59 06:59 14:59 Intake Total 342 Balance 342 Lab Results Last 24 Hours: Laboratory Results - last 24 hr 06/09/20 06/09/20 06/09/20 Range/Units 15:40 15:40 15:40 WBC 12.96 H (3.98-10.04) K/mm3 RBC 3.56 L (3.98-5.22) M/mm3 Hgb 11.8 (11.2-15.7) gm/dl Hct 36.3 (34.1-44.9) % MCV 102.0 H (79.4-94.8) fl MCH 33.1 H (25.6-32.2) pg MCHC 32.5 (32.2-35.5) g/dl RDW Std Deviation 51.5 H (36.4-46.3) fL Plt Count 316 (182-369) K/mm3 MPV 9.5 (9.4-12.3) fl Neut % (Auto) (34.0-71.1) % Lymph % (Auto) (19.3-51.7) % [place] % (Auto) (4.7-12.5) % Eos % (Auto) (0.7-5.8) Baso % (Auto) (0.1-1.2) % Neut # (Auto) (1.56-6.13) K/mm3 Lymph # (Auto) (1.18-3.74) K/mm3 [place] # (Auto) (0.24-0.36) K/mm3 Eos # (Auto) (0.04-0.36) K/mm3 Baso # (Auto) (0.01-0.08) K/mm3 Neutrophils % (Manual) 81 H (40-60) % Band Neutrophils % 0 (0-10) % Lymphocytes % (Manual) 15 L (20-40) % Atypical Lymphs % 0 % Monocytes % (Manual) 3 (2-10) % Eosinophils % (Manual) 0 L (0.7-5.8) % Basophils % (Manual) 1 (0.1-1.2) Platelet Estimate Adequate Anisocytosis 1+ slight Macrocytosis 1+ slight RBC Morph Comment Not Reportable PT 10.7 (9.7-12.0) SECONDS INR 1.00 Sodium 140 (136-145) mEq/L Potassium 3.7 (3.5-5.1) mEq/L Chloride 100 (98-107) mEq/L Carbon Dioxide 24 (21-32) mEq/L Anion Gap 19.7 H (5-15) BUN 15 (7-18) mg/dL Creatinine 0.9 (0.55-1.02) mg/dL Est Cr Clr Drug Dosing 40.09 mL/min Estimated GFR (MDRD) > 60 (>60) mL/min BUN/Creatinine Ratio 16.7 (14-18) Glucose 120 H (83-115) mg/dL Lactic Acid (0.4-2.0) mmol/L Calcium 9.3 (8.5-10.1) mg/dL Phosphorus (2.6-4.7) mg/dL Magnesium (1.8-2.4) mg/dl Total Bilirubin 0.8 (0.2-1.0) mg/dL AST 34 (15-37) U/L ALT 28 (14-59) U/L Alkaline Phosphatase 53 (46-116) U/L Troponin I (0.00-0.056) ng/mL C-Reactive Protein 28.5 H* (<1.0) mg/dL NT-Pro-B Natriuret Pep (0-450) pg/mL Total Protein 7.4 (6.4-8.2) g/dl Albumin 3.2 L (3.4-5.0) g/dl Globulin 4.2 gm/dL Albumin/Globulin Ratio 0.8 L (1-2) Urine Color (Yellow) Urine Appearance (Clear) Urine pH (5.0-8.0) Ur Specific [place] (1.005-1.030) Urine Protein (Negative) Urine Glucose (UA) (Negative) Urine Ketones (Negative) Urine Occult Blood (Negative) Urine Nitrite (Negative) Urine Bilirubin (Negative) Urine Urobilinogen (0.2-1.0) Ur Leukocyte Esterase (Negative) Urine RBC (0-5) /hpf Urine WBC (0-5) /hpf Ur Squamous Epith Cells (0-5) /hpf Urine Bacteria (FEW) /hpf Urine Mucus (FEW) /hpf SARS-CoV-2 RNA (ZAC) (NEGATIVE) 06/09/20 06/09/20 06/09/20 Range/Units 16:38 16:38 18:19 WBC (3.98-10.04) K/mm3 RBC (3.98-5.22) M/mm3 Hgb (11.2-15.7) gm/dl Hct (34.1-44.9) % MCV (79.4-94.8) fl MCH (25.6-32.2) pg MCHC (32.2-35.5) g/dl RDW Std Deviation (36.4-46.3) fL Plt Count (182-369) K/mm3 MPV (9.4-12.3) fl Neut % (Auto) (34.0-71.1) % Lymph % (Auto) (19.3-51.7) % [place] % (Auto) (4.7-12.5) % Eos % (Auto) (0.7-5.8) Baso % (Auto) (0.1-1.2) % Neut # (Auto) (1.56-6.13) K/mm3 Lymph # (Auto) (1.18-3.74) K/mm3 [place] # (Auto) (0.24-0.36) K/mm3 Eos # (Auto) (0.04-0.36) K/mm3 Baso # (Auto) (0.01-0.08) K/mm3 Neutrophils % (Manual) (40-60) % Band Neutrophils % (0-10) % Lymphocytes % (Manual) (20-40) % Atypical Lymphs % % Monocytes % (Manual) (2-10) % Eosinophils % (Manual) (0.7-5.8) % Basophils % (Manual) (0.1-1.2) Platelet Estimate Anisocytosis Macrocytosis RBC Morph Comment PT (9.7-12.0) SECONDS INR Sodium (136-145) mEq/L Potassium (3.5-5.1) mEq/L Chloride (98-107) mEq/L Carbon Dioxide (21-32) mEq/L Anion Gap (5-15) BUN (7-18) mg/dL Creatinine (0.55-1.02) mg/dL Est Cr Clr Drug Dosing mL/min Estimated GFR (MDRD) (>60) mL/min BUN/Creatinine Ratio (14-18) Glucose (83-115) mg/dL Lactic Acid 0.9 (0.4-2.0) mmol/L Calcium (8.5-10.1) mg/dL Phosphorus 2.6 (2.6-4.7) mg/dL Magnesium 1.7 L (1.8-2.4) mg/dl Total Bilirubin (0.2-1.0) mg/dL AST (15-37) U/L ALT (14-59) U/L Alkaline Phosphatase (46-116) U/L Troponin I < 0.017 (0.00-0.056) ng/mL C-Reactive Protein (<1.0) mg/dL NT-Pro-B Natriuret Pep (0-450) pg/mL Total Protein (6.4-8.2) g/dl Albumin (3.4-5.0) g/dl Globulin gm/dL Albumin/Globulin Ratio (1-2) Urine Color Yellow (Yellow) Urine Appearance Clear (Clear) Urine pH 6.0 (5.0-8.0) Ur Specific [place] 1.020 (1.005-1.030) Urine Protein 1+ H (Negative) Urine Glucose (UA) Negative (Negative) Urine Ketones Trace H (Negative) Urine Occult Blood 1+ H (Negative) Urine Nitrite Positive H (Negative) Urine Bilirubin Negative (Negative) Urine Urobilinogen 0.2 (0.2-1.0) Ur Leukocyte Esterase 3+ H (Negative) Urine RBC 10-20 H (0-5) /hpf Urine WBC 40-50 H (0-5) /hpf Ur Squamous Epith Cells 5-10 H (0-5) /hpf Urine Bacteria Many H (FEW) /hpf Urine Mucus Not seen (FEW) /hpf SARS-CoV-2 RNA (ZAC) (NEGATIVE) 06/09/20 06/09/20 06/10/20 Range/Units 18:26 20:00 02:02 WBC (3.98-10.04) K/mm3 RBC (3.98-5.22) M/mm3 Hgb (11.2-15.7) gm/dl Hct (34.1-44.9) % MCV (79.4-94.8) fl MCH (25.6-32.2) pg MCHC (32.2-35.5) g/dl RDW Std Deviation (36.4-46.3) fL Plt Count (182-369) K/mm3 MPV (9.4-12.3) fl Neut % (Auto) (34.0-71.1) % Lymph % (Auto) (19.3-51.7) % [place] % (Auto) (4.7-12.5) % Eos % (Auto) (0.7-5.8) Baso % (Auto) (0.1-1.2) % Neut # (Auto) (1.56-6.13) K/mm3 Lymph # (Auto) (1.18-3.74) K/mm3 [place] # (Auto) (0.24-0.36) K/mm3 Eos # (Auto) (0.04-0.36) K/mm3 Baso # (Auto) (0.01-0.08) K/mm3 Neutrophils % (Manual) (40-60) % Band Neutrophils % (0-10) % Lymphocytes % (Manual) (20-40) % Atypical Lymphs % % Monocytes % (Manual) (2-10) % Eosinophils % (Manual) (0.7-5.8) % Basophils % (Manual) (0.1-1.2) Platelet Estimate Anisocytosis Macrocytosis RBC Morph Comment PT (9.7-12.0) SECONDS INR Sodium (136-145) mEq/L Potassium (3.5-5.1) mEq/L Chloride (98-107) mEq/L Carbon Dioxide (21-32) mEq/L Anion Gap (5-15) BUN (7-18) mg/dL Creatinine (0.55-1.02) mg/dL Est Cr Clr Drug Dosing mL/min Estimated GFR (MDRD) (>60) mL/min BUN/Creatinine Ratio (14-18) Glucose (83-115) mg/dL Lactic Acid (0.4-2.0) mmol/L Calcium (8.5-10.1) mg/dL Phosphorus (2.6-4.7) mg/dL Magnesium (1.8-2.4) mg/dl Total Bilirubin (0.2-1.0) mg/dL AST (15-37) U/L ALT (14-59) U/L Alkaline Phosphatase (46-116) U/L Troponin I < 0.017 (0.00-0.056) ng/mL C-Reactive Protein (<1.0) mg/dL NT-Pro-B Natriuret Pep 668 H (0-450) pg/mL Total Protein (6.4-8.2) g/dl Albumin (3.4-5.0) g/dl Globulin gm/dL Albumin/Globulin Ratio (1-2) Urine Color (Yellow) Urine Appearance (Clear) Urine pH (5.0-8.0) Ur Specific [place] (1.005-1.030) Urine Protein (Negative) Urine Glucose (UA) (Negative) Urine Ketones (Negative) Urine Occult Blood (Negative) Urine Nitrite (Negative) Urine Bilirubin (Negative) Urine Urobilinogen (0.2-1.0) Ur Leukocyte Esterase (Negative) Urine RBC (0-5) /hpf Urine WBC (0-5) /hpf Ur Squamous Epith Cells (0-5) /hpf Urine Bacteria (FEW) /hpf Urine Mucus (FEW) /hpf SARS-CoV-2 RNA (ZAC) Negative (NEGATIVE) 06/10/20 06/10/20 Range/Units 05:18 05:18 WBC 10.85 H (3.98-10.04) K/mm3 RBC 3.04 L (3.98-5.22) M/mm3 Hgb 9.9 L D (11.2-15.7) gm/dl Hct 31.4 L (34.1-44.9) % MCV 103.3 H (79.4-94.8) fl MCH 32.6 H (25.6-32.2) pg MCHC 31.5 L (32.2-35.5) g/dl RDW Std Deviation 52.4 H (36.4-46.3) fL Plt Count 279 (182-369) K/mm3 MPV 9.1 L (9.4-12.3) fl Neut % (Auto) 73.7 H (34.0-71.1) % Lymph % (Auto) 15.2 L (19.3-51.7) % [place] % (Auto) 10.0 (4.7-12.5) % Eos % (Auto) 0.6 L (0.7-5.8) Baso % (Auto) 0.3 (0.1-1.2) % Neut # (Auto) 8.00 H (1.56-6.13) K/mm3 Lymph # (Auto) 1.65 (1.18-3.74) K/mm3 [place] # (Auto) 1.08 H (0.24-0.36) K/mm3 Eos # (Auto) 0.07 (0.04-0.36) K/mm3 Baso # (Auto) 0.03 (0.01-0.08) K/mm3 Neutrophils % (Manual) (40-60) % Band Neutrophils % (0-10) % Lymphocytes % (Manual) (20-40) % Atypical Lymphs % % Monocytes % (Manual) (2-10) % Eosinophils % (Manual) (0.7-5.8) % Basophils % (Manual) (0.1-1.2) Platelet Estimate Anisocytosis Macrocytosis RBC Morph Comment PT (9.7-12.0) SECONDS INR Sodium 139 (136-145) mEq/L Potassium 3.0 L (3.5-5.1) mEq/L Chloride 104 (98-107) mEq/L Carbon Dioxide 25 (21-32) mEq/L Anion Gap 13.0 (5-15) BUN 13 (7-18) mg/dL Creatinine 0.9 (0.55-1.02) mg/dL Est Cr Clr Drug Dosing 40.09 mL/min Estimated GFR (MDRD) > 60 (>60) mL/min BUN/Creatinine Ratio 14.4 (14-18) Glucose 105 (83-115) mg/dL Lactic Acid (0.4-2.0) mmol/L Calcium 8.5 (8.5-10.1) mg/dL Phosphorus (2.6-4.7) mg/dL Magnesium (1.8-2.4) mg/dl Total Bilirubin 0.6 (0.2-1.0) mg/dL AST 22 (15-37) U/L ALT 23 (14-59) U/L Alkaline Phosphatase 48 (46-116) U/L Troponin I (0.00-0.056) ng/mL C-Reactive Protein (<1.0) mg/dL NT-Pro-B Natriuret Pep (0-450) pg/mL Total Protein 5.9 L (6.4-8.2) g/dl Albumin 2.5 L (3.4-5.0) g/dl Globulin 3.4 gm/dL Albumin/Globulin Ratio 0.7 L (1-2) Urine Color (Yellow) Urine Appearance (Clear) Urine pH (5.0-8.0) Ur Specific [place] (1.005-1.030) Urine Protein (Negative) Urine Glucose (UA) (Negative) Urine Ketones (Negative) Urine Occult Blood (Negative) Urine Nitrite (Negative) Urine Bilirubin (Negative) Urine Urobilinogen (0.2-1.0) Ur Leukocyte Esterase (Negative) Urine RBC (0-5) /hpf Urine WBC (0-5) /hpf Ur Squamous Epith Cells (0-5) /hpf Urine Bacteria (FEW) /hpf Urine Mucus (FEW) /hpf SARS-CoV-2 RNA (ZAC) (NEGATIVE) Med Orders - Current: Current Medications Acetaminophen (Acetaminophen 650 Mg Supp) 650 mg RECTAL Q4H PRN PRN Reason: Pain (mild 1-3) Acetaminophen (Acetaminophen 325 Mg Tab) 650 mg PO Q4H PRN PRN Reason: Pain/Fever Last Admin: 06/10/20 02:12 Dose: 650 mg Documented by: Albuterol/Ipratropium (Albuterol/Ipratropium 3.0-0.5 Mg/3 Ml Neb Soln) 3 ml NEB Q4H PRN PRN Reason: Shortness Of Breath/wheezing Amlodipine Besylate (Amlodipine 5 Mg Tab) 5 mg PO DAILY [facility] Aspirin (Aspirin 325 Mg Tab.Ec) 325 mg PO BID [facility] Last Admin: 06/09/20 21:09 Dose: 325 mg Documented by: Cholecalciferol (Cholecalciferol (Vitamin D3) 5,000 Unit Cap) 5,000 unit PO DAILY [facility] Enoxaparin Sodium (Enoxaparin 40 Mg/0.4 Ml Syringe) 40 mg SUBCUT DAILY [facility] Last Admin: 06/09/20 20:49 Dose: Not Given Documented by: Hydralazine HCl (Hydralazine 20 Mg/Ml Sdv) 10 mg IVPUSH Q4H PRN PRN Reason: Hypertension Hydrochlorothiazide (Hydrochlorothiazide 25 Mg Tab) 25 mg PO DAILY [facility] Lactated Ringer's (Ringers, Lactated) 1,000 mls @ 65 mls/hr IV ASDIRECTED [facility] Last Admin: 06/10/20 01:53 Dose: 65 mls/hr Documented by: Promethazine HCl 12.5 mg/ (Sodium Chloride) 50.5 mls @ 100 mls/hr IV Q6H PRN PRN Reason: Nausea/Vomiting Ceftriaxone Sodium 1 gm/ (Sodium Chloride) 100 mls @ 200 mls/hr IV Q24H [facility] Losartan Potassium (Losartan 50 Mg Tab) 50 mg PO DAILY [facility] Morphine Sulfate (Morphine 2 Mg/Ml Syringe) 2 mg IVPUSH Q4H PRN PRN Reason: Pain (severe 7-10) Stop: 06/10/20 19:49 Ondansetron HCl (Ondansetron 4 Mg/2 Ml Sdv) 4 mg IVPUSH Q6H PRN PRN Reason: Nausea/Vomiting Rosuvastatin Calcium (Rosuvastatin 10 Mg Tab) 10 mg PO BEDTIME [facility] Last Admin: 06/09/20 21:06 Dose: 10 mg Documented by: Sertraline HCl (Sertraline 50 Mg Tab) 75 mg PO DAILY [facility] Sodium Chloride (Sodium Chloride 0.9% 10 Ml Syringe) 10 ml FLUSH ASDIRECTED PRN PRN Reason: Keep Vein Open Last Admin: 06/09/20 16:42 Dose: 10 ml Documented by: Tizanidine HCl (Tizanidine 4 Mg Tab) 4 mg PO BEDTIME [facility] Last Admin: 06/09/20 21:06 Dose: 4 mg Documented by: Tramadol HCl (Tramadol 50 Mg Tab) 50 mg PO Q6H PRN PRN Reason: Pain (moderate 4-6) Discontinued Medications Acetaminophen (Acetaminophen 325 Mg Tab) 975 mg PO NOW ONE Stop: 06/09/20 16:09 Last Admin: 06/09/20 16:42 Dose: 975 mg Documented by: Ceftriaxone Sodium 2 gm/ (Sodium Chloride) 100 mls @ 200 mls/hr IV STAT ONE Stop: 06/09/20 16:34 Last Admin: 06/09/20 16:22 Dose: Not Given Documented by: Sodium Chloride (Normal Saline) 1,000 mls @ 1,000 mls/hr IV BOLUS ONE; Protocol Stop: 06/09/20 17:04 Last Admin: 06/09/20 16:42 Dose: 1,000 mls/hr Documented by: Ceftriaxone Sodium 2 gm/ (Sodium Chloride) 100 mls @ 200 mls/hr IV ONETIME ONE Stop: 06/09/20 16:51 Last Admin: 06/09/20 16:42 Dose: 200 mls/hr Documented by: - Exam Quality Assessment: DVT Prophylaxis. No: Supplemental Oxygen, Urine Catheter General: Alert, Oriented, Cooperative, No Acute Distress HEENT: Pupils Equal, Pupils Reactive, Mucous Membr. Moist/[place] Neck: Supple, Trachea Midline Lungs: Clear to Auscultation, Normal Respiratory Effort Cardiovascular: Regular Rate, Regular Rhythm GI/Abdominal Exam: Normal Bowel Sounds, Soft, No Distention, Tender (lower quadrant ) (Female) Exam: Deferred Back Exam: Normal Inspection, Full Range of Motion Extremities: Normal Inspection, Normal Range of Motion, Non-Tender, No Pedal Edema, Normal Capillary Refill Skin: Warm, Dry, Intact Neurological: No New Focal Deficit Psy/Mental Status: Alert, Normal Affect, Normal Mood - Patient Data Lab Results Last 24 hrs: Laboratory Results - last 24 hr 06/09/20 06/09/20 06/09/20 Range/Units 15:40 15:40 15:40 WBC 12.96 H (3.98-10.04) K/mm3 RBC 3.56 L (3.98-5.22) M/mm3 Hgb 11.8 (11.2-15.7) gm/dl Hct 36.3 (34.1-44.9) % MCV 102.0 H (79.4-94.8) fl MCH 33.1 H (25.6-32.2) pg MCHC 32.5 (32.2-35.5) g/dl RDW Std Deviation 51.5 H (36.4-46.3) fL Plt Count 316 (182-369) K/mm3 MPV 9.5 (9.4-12.3) fl Neut % (Auto) (34.0-71.1) % Lymph % (Auto) (19.3-51.7) % [place] % (Auto) (4.7-12.5) % Eos % (Auto) (0.7-5.8) Baso % (Auto) (0.1-1.2) % Neut # (Auto) (1.56-6.13) K/mm3 Lymph # (Auto) (1.18-3.74) K/mm3 [place] # (Auto) (0.24-0.36) K/mm3 Eos # (Auto) (0.04-0.36) K/mm3 Baso # (Auto) (0.01-0.08) K/mm3 Neutrophils % (Manual) 81 H (40-60) % Band Neutrophils % 0 (0-10) % Lymphocytes % (Manual) 15 L (20-40) % Atypical Lymphs % 0 % Monocytes % (Manual) 3 (2-10) % Eosinophils % (Manual) 0 L (0.7-5.8) % Basophils % (Manual) 1 (0.1-1.2) Platelet Estimate Adequate Anisocytosis 1+ slight Macrocytosis 1+ slight RBC Morph Comment Not Reportable PT 10.7 (9.7-12.0) SECONDS INR 1.00 Sodium 140 (136-145) mEq/L Potassium 3.7 (3.5-5.1) mEq/L Chloride 100 (98-107) mEq/L Carbon Dioxide 24 (21-32) mEq/L Anion Gap 19.7 H (5-15) BUN 15 (7-18) mg/dL Creatinine 0.9 (0.55-1.02) mg/dL Est Cr Clr Drug Dosing 40.09 mL/min Estimated GFR (MDRD) > 60 (>60) mL/min BUN/Creatinine Ratio 16.7 (14-18) Glucose 120 H (83-115) mg/dL Lactic Acid (0.4-2.0) mmol/L Calcium 9.3 (8.5-10.1) mg/dL Phosphorus (2.6-4.7) mg/dL Magnesium (1.8-2.4) mg/dl Total Bilirubin 0.8 (0.2-1.0) mg/dL AST 34 (15-37) U/L ALT 28 (14-59) U/L Alkaline Phosphatase 53 (46-116) U/L Troponin I (0.00-0.056) ng/mL C-Reactive Protein 28.5 H* (<1.0) mg/dL NT-Pro-B Natriuret Pep (0-450) pg/mL Total Protein 7.4 (6.4-8.2) g/dl Albumin 3.2 L (3.4-5.0) g/dl Globulin 4.2 gm/dL Albumin/Globulin Ratio 0.8 L (1-2) Urine Color (Yellow) Urine Appearance (Clear) Urine pH (5.0-8.0) Ur Specific [place] (1.005-1.030) Urine Protein (Negative) Urine Glucose (UA) (Negative) Urine Ketones (Negative) Urine Occult Blood (Negative) Urine Nitrite (Negative) Urine Bilirubin (Negative) Urine Urobilinogen (0.2-1.0) Ur Leukocyte Esterase (Negative) Urine RBC (0-5) /hpf Urine WBC (0-5) /hpf Ur Squamous Epith Cells (0-5) /hpf Urine Bacteria (FEW) /hpf Urine Mucus (FEW) /hpf SARS-CoV-2 RNA (ZAC) (NEGATIVE) 06/09/20 06/09/20 06/09/20 Range/Units 16:38 16:38 18:19 WBC (3.98-10.04) K/mm3 RBC (3.98-5.22) M/mm3 Hgb (11.2-15.7) gm/dl Hct (34.1-44.9) % MCV (79.4-94.8) fl MCH (25.6-32.2) pg MCHC (32.2-35.5) g/dl RDW Std Deviation (36.4-46.3) fL Plt Count (182-369) K/mm3 MPV (9.4-12.3) fl Neut % (Auto) (34.0-71.1) % Lymph % (Auto) (19.3-51.7) % [place] % (Auto) (4.7-12.5) % Eos % (Auto) (0.7-5.8) Baso % (Auto) (0.1-1.2) % Neut # (Auto) (1.56-6.13) K/mm3 Lymph # (Auto) (1.18-3.74) K/mm3 [place] # (Auto) (0.24-0.36) K/mm3 Eos # (Auto) (0.04-0.36) K/mm3 Baso # (Auto) (0.01-0.08) K/mm3 Neutrophils % (Manual) (40-60) % Band Neutrophils % (0-10) % Lymphocytes % (Manual) (20-40) % Atypical Lymphs % % Monocytes % (Manual) (2-10) % Eosinophils % (Manual) (0.7-5.8) % Basophils % (Manual) (0.1-1.2) Platelet Estimate Anisocytosis Macrocytosis RBC Morph Comment PT (9.7-12.0) SECONDS INR Sodium (136-145) mEq/L Potassium (3.5-5.1) mEq/L Chloride (98-107) mEq/L Carbon Dioxide (21-32) mEq/L Anion Gap (5-15) BUN (7-18) mg/dL Creatinine (0.55-1.02) mg/dL Est Cr Clr Drug Dosing mL/min Estimated GFR (MDRD) (>60) mL/min BUN/Creatinine Ratio (14-18) Glucose (83-115) mg/dL Lactic Acid 0.9 (0.4-2.0) mmol/L Calcium (8.5-10.1) mg/dL Phosphorus 2.6 (2.6-4.7) mg/dL Magnesium 1.7 L (1.8-2.4) mg/dl Total Bilirubin (0.2-1.0) mg/dL AST (15-37) U/L ALT (14-59) U/L Alkaline Phosphatase (46-116) U/L Troponin I < 0.017 (0.00-0.056) ng/mL C-Reactive Protein (<1.0) mg/dL NT-Pro-B Natriuret Pep (0-450) pg/mL Total Protein (6.4-8.2) g/dl Albumin (3.4-5.0) g/dl Globulin gm/dL Albumin/Globulin Ratio (1-2) Urine Color Yellow (Yellow) Urine Appearance Clear (Clear) Urine pH 6.0 (5.0-8.0) Ur Specific [place] 1.020 (1.005-1.030) Urine Protein 1+ H (Negative) Urine Glucose (UA) Negative (Negative) Urine Ketones Trace H (Negative) Urine Occult Blood 1+ H (Negative) Urine Nitrite Positive H (Negative) Urine Bilirubin Negative (Negative) Urine Urobilinogen 0.2 (0.2-1.0) Ur Leukocyte Esterase 3+ H (Negative) Urine RBC 10-20 H (0-5) /hpf Urine WBC 40-50 H (0-5) /hpf Ur Squamous Epith Cells 5-10 H (0-5) /hpf Urine Bacteria Many H (FEW) /hpf Urine Mucus Not seen (FEW) /hpf SARS-CoV-2 RNA (ZAC) (NEGATIVE) 06/09/20 06/09/20 06/10/20 Range/Units 18:26 20:00 02:02 WBC (3.98-10.04) K/mm3 RBC (3.98-5.22) M/mm3 Hgb (11.2-15.7) gm/dl Hct (34.1-44.9) % MCV (79.4-94.8) fl MCH (25.6-32.2) pg MCHC (32.2-35.5) g/dl RDW Std Deviation (36.4-46.3) fL Plt Count (182-369) K/mm3 MPV (9.4-12.3) fl Neut % (Auto) (34.0-71.1) % Lymph % (Auto) (19.3-51.7) % [place] % (Auto) (4.7-12.5) % Eos % (Auto) (0.7-5.8) Baso % (Auto) (0.1-1.2) % Neut # (Auto) (1.56-6.13) K/mm3 Lymph # (Auto) (1.18-3.74) K/mm3 [place] # (Auto) (0.24-0.36) K/mm3 Eos # (Auto) (0.04-0.36) K/mm3 Baso # (Auto) (0.01-0.08) K/mm3 Neutrophils % (Manual) (40-60) % Band Neutrophils % (0-10) % Lymphocytes % (Manual) (20-40) % Atypical Lymphs % % Monocytes % (Manual) (2-10) % Eosinophils % (Manual) (0.7-5.8) % Basophils % (Manual) (0.1-1.2) Platelet Estimate Anisocytosis Macrocytosis RBC Morph Comment PT (9.7-12.0) SECONDS INR Sodium (136-145) mEq/L Potassium (3.5-5.1) mEq/L Chloride (98-107) mEq/L Carbon Dioxide (21-32) mEq/L Anion Gap (5-15) BUN (7-18) mg/dL Creatinine (0.55-1.02) mg/dL Est Cr Clr Drug Dosing mL/min Estimated GFR (MDRD) (>60) mL/min BUN/Creatinine Ratio (14-18) Glucose (83-115) mg/dL Lactic Acid (0.4-2.0) mmol/L Calcium (8.5-10.1) mg/dL Phosphorus (2.6-4.7) mg/dL Magnesium (1.8-2.4) mg/dl Total Bilirubin (0.2-1.0) mg/dL AST (15-37) U/L ALT (14-59) U/L Alkaline Phosphatase (46-116) U/L Troponin I < 0.017 (0.00-0.056) ng/mL C-Reactive Protein (<1.0) mg/dL NT-Pro-B Natriuret Pep 668 H (0-450) pg/mL Total Protein (6.4-8.2) g/dl Albumin (3.4-5.0) g/dl Globulin gm/dL Albumin/Globulin Ratio (1-2) Urine Color (Yellow) Urine Appearance (Clear) Urine pH (5.0-8.0) Ur Specific [place] (1.005-1.030) Urine Protein (Negative) Urine Glucose (UA) (Negative) Urine Ketones (Negative) Urine Occult Blood (Negative) Urine Nitrite (Negative) Urine Bilirubin (Negative) Urine Urobilinogen (0.2-1.0) Ur Leukocyte Esterase (Negative) Urine RBC (0-5) /hpf Urine WBC (0-5) /hpf Ur Squamous Epith Cells (0-5) /hpf Urine Bacteria (FEW) /hpf Urine Mucus (FEW) /hpf SARS-CoV-2 RNA (ZAC) Negative (NEGATIVE) 06/10/20 06/10/20 Range/Units 05:18 05:18 WBC 10.85 H (3.98-10.04) K/mm3 RBC 3.04 L (3.98-5.22) M/mm3 Hgb 9.9 L D (11.2-15.7) gm/dl Hct 31.4 L (34.1-44.9) % MCV 103.3 H (79.4-94.8) fl MCH 32.6 H (25.6-32.2) pg MCHC 31.5 L (32.2-35.5) g/dl RDW Std Deviation 52.4 H (36.4-46.3) fL Plt Count 279 (182-369) K/mm3 MPV 9.1 L (9.4-12.3) fl Neut % (Auto) 73.7 H (34.0-71.1) % Lymph % (Auto) 15.2 L (19.3-51.7) % [place] % (Auto) 10.0 (4.7-12.5) % Eos % (Auto) 0.6 L (0.7-5.8) Baso % (Auto) 0.3 (0.1-1.2) % Neut # (Auto) 8.00 H (1.56-6.13) K/mm3 Lymph # (Auto) 1.65 (1.18-3.74) K/mm3 [place] # (Auto) 1.08 H (0.24-0.36) K/mm3 Eos # (Auto) 0.07 (0.04-0.36) K/mm3 Baso # (Auto) 0.03 (0.01-0.08) K/mm3 Neutrophils % (Manual) (40-60) % Band Neutrophils % (0-10) % Lymphocytes % (Manual) (20-40) % Atypical Lymphs % % Monocytes % (Manual) (2-10) % Eosinophils % (Manual) (0.7-5.8) % Basophils % (Manual) (0.1-1.2) Platelet Estimate Anisocytosis Macrocytosis RBC Morph Comment PT (9.7-12.0) SECONDS INR Sodium 139 (136-145) mEq/L Potassium 3.0 L (3.5-5.1) mEq/L Chloride 104 (98-107) mEq/L Carbon Dioxide 25 (21-32) mEq/L Anion Gap 13.0 (5-15) BUN 13 (7-18) mg/dL Creatinine 0.9 (0.55-1.02) mg/dL Est Cr Clr Drug Dosing 40.09 mL/min Estimated GFR (MDRD) > 60 (>60) mL/min BUN/Creatinine Ratio 14.4 (14-18) Glucose 105 (83-115) mg/dL Lactic Acid (0.4-2.0) mmol/L Calcium 8.5 (8.5-10.1) mg/dL Phosphorus (2.6-4.7) mg/dL Magnesium (1.8-2.4) mg/dl Total Bilirubin 0.6 (0.2-1.0) mg/dL AST 22 (15-37) U/L ALT 23 (14-59) U/L Alkaline Phosphatase 48 (46-116) U/L Troponin I (0.00-0.056) ng/mL C-Reactive Protein (<1.0) mg/dL NT-Pro-B Natriuret Pep (0-450) pg/mL Total Protein 5.9 L (6.4-8.2) g/dl Albumin 2.5 L (3.4-5.0) g/dl Globulin 3.4 gm/dL Albumin/Globulin Ratio 0.7 L (1-2) Urine Color (Yellow) Urine Appearance (Clear) Urine pH (5.0-8.0) Ur Specific [place] (1.005-1.030) Urine Protein (Negative) Urine Glucose (UA) (Negative) Urine Ketones (Negative) Urine Occult Blood (Negative) Urine Nitrite (Negative) Urine Bilirubin (Negative) Urine Urobilinogen (0.2-1.0) Ur Leukocyte Esterase (Negative) Urine RBC (0-5) /hpf Urine WBC (0-5) /hpf Ur Squamous Epith Cells (0-5) /hpf Urine Bacteria (FEW) /hpf Urine Mucus (FEW) /hpf SARS-CoV-2 RNA (ZAC) (NEGATIVE) Result Diagrams: 06/10/20 05:18 06/10/20 05:18 Sepsis Event Note - Evaluation Sepsis Screening Result: No Definite Risk - Focused Exam Vital Signs: Vital Signs Temp Temp Pulse Pulse Resp BP BP 06/10/20 03:22 73 115/96 H 06/10/20 03:21 99.3 F 74 18 118/48 L 06/10/20 02:12 101.7 F H 06/09/20 23:19 97.7 F 06/09/20 20:28 98.4 F 73 18 112/80 06/09/20 20:15 100 F 72 20 122/67 Pulse Ox 06/10/20 03:22 94 L 06/10/20 03:21 92 L 06/10/20 02:12 06/09/20 23:19 06/09/20 20:28 97 06/09/20 20:15 95 - Problem List & Annotations (1) Hypokalemia SNOMED Code(s): 08731920 Code(s): E87.6 - HYPOKALEMIA Status: Acute Priority: High Current Visit: Yes (2) Atelectasis SNOMED Code(s): 02376669 Code(s): J98.11 - ATELECTASIS Status: Acute Priority: High Current Visit: Yes (3) Anemia SNOMED Code(s): 923586133 Code(s): D64.9 - ANEMIA, UNSPECIFIED Status: Acute Priority: High Current Visit: Yes Qualifiers: Anemia type: unspecified type Qualified Code(s): D64.9 - Anemia, unspecified (4) Leukocytosis SNOMED Code(s): 920795649, 484243067 Code(s): D72.829 - ELEVATED WHITE BLOOD CELL COUNT, UNSPECIFIED Status: Acute Priority: High Current Visit: Yes Qualifiers: Leukocytosis type: unspecified Qualified Code(s): D72.829 - Elevated white blood cell count, unspecified (5) Anxiety SNOMED Code(s): 75392274 Code(s): F41.9 - ANXIETY DISORDER, UNSPECIFIED Status: Chronic Priority: Low Current Visit: No (6) Depression SNOMED Code(s): 28772643 Code(s): F32.9 - MAJOR DEPRESSIVE DISORDER, SINGLE EPISODE, UNSPECIFIED Status: Chronic Priority: Low Current Visit: No Qualifiers: Depression Type: other depression Qualified Code(s): F32.89 - Other specified depressive episodes (7) UTI (urinary tract infection) SNOMED Code(s): 01670783 Code(s): N39.0 - URINARY TRACT INFECTION, SITE NOT SPECIFIED Status: Acute Priority: High Current Visit: Yes Qualifiers: Urinary tract infection type: acute cystitis Hematuria presence: with hematuria Qualified Code(s): N30.01 - Acute cystitis with hematuria (8) Sepsis SNOMED Code(s): 95391273 Code(s): A41.9 - SEPSIS, UNSPECIFIED ORGANISM Status: Resolved Priority: High Current Visit: Yes Qualifiers: Sepsis type: sepsis due to unspecified organism Sepsis acute organ dysfunction status: unspecified Qualified Code(s): A41.9 - Sepsis, unspecified organism (9) HTN (hypertension) SNOMED Code(s): 03701587 Code(s): I10 - ESSENTIAL (PRIMARY) HYPERTENSION Status: Chronic Priority: Medium Current Visit: No Qualifiers: Hypertension type: unspecified Qualified Code(s): I10 - Essential (primary) hypertension (10) Hypomagnesemia SNOMED Code(s): 229223379 Code(s): E83.42 - HYPOMAGNESEMIA Status: Acute Priority: High Current Visit: Yes - Problem List Review Problem List Initiated/Reviewed/Updated: Yes - Plan Plan:: Pt is a 80 yof with a hx of HTN who presented to the ER due to fever and chills for days. Pt started to have fever and chills associated with mild dizziness and fatique days ago. UA compatible with UTI. Assessment and plan: Early sepsis 2nd to UTI, Resolved Atelectasis LA 0.9, CRP 28.5 Blood culture CXR: 1. Density within medial left upper lung, difficult to exclude minimal area of pneumonia. 2. Slight density within the left lung base most likely due to atelectasis. 1L NS bolus was given in the ER Continue IVF antibiotics IS Leukocytosis, improved Monitor CBC Continue ceftriaxone for UTI UTI UA compatible with UTI Creatinine 0.9 Ceftriaxone 1g iv daily Urine cultures showing gram negative bacteria but patient given abx prior HTN Continue home meds amlodipine 5mg daily, losartan 50mg daily, HCTZ 25mg daily Hydralazine prn Depression/anxiety continue home sertraline. Ativan 0.5mg iv Q6hrs prn Hypokalemia Hypokalemia Potassium 3.0; Magnesium 1.7 Supplement potassium PO 40mg x3 Supplement 2gm magnesium Monitor daily labs Anemia Hgb 9.9 No signs of active bleeding Likely worsened by IV fluid dilution Monitor CBC DVT prophylaxis: Lovenox Deposition: PT/OT Await urine/blood cultures
[2020-06-10] MEDS: Hydrochlorothiazide 25 MG Tab PO SCH (08:47)
[2020-06-10] MEDS: amLODIPine 5 MG Tab PO SCH (08:47)
[2020-06-10] MEDS: Losartan 50 MG Tab PO SCH (08:47)
[2020-06-10] MEDS: Sertraline 50 MG Tab PO SCH (08:47)
[2020-06-10] MEDS: Aspirin 325 MG Tab.EC PO SCH ×2 (08:47→21:26)
[2020-06-10] MEDS: Cholecalciferol (Vitamin D3) 5,000 UNIT Cap PO SCH (08:48)
[2020-06-10] MEDS: Enoxaparin 40 MG/0.4 ML Syringe SUBCUT SCH (08:48)
--- NOTE | 2020-06-10 09:06 | CR ---
Chest: Portable view of the chest was obtained. Comparison: Prior chest x-ray of 09/01/15. Heart size is normal. Tortuous thoracic aorta is seen. Small parenchymal density is noted within the medial left upper lung. Mild atelectasis is seen within the left lung base. Right lung is clear. Bony structures show nothing acute. Impression: 1. Slight density within the medial left upper lung, difficult to exclude minimal area of pneumonia. 2. Slight density within the left lung base most likely due to atelectasis. Diagnostic code #3
[2020-06-10] MEDS: Potassium Chloride 20 MEQ Tab.ER PO SCH ×2 (12:01→21:26)
[2020-06-10] MEDS ORDERED: Magnesium Sulfate/Water 2 GM/50 ML BAG IV ONE (12:59)
[2020-06-10] MEDS ORDERED: cefTRIAXone 1 GM in Sodium Chloride 0.9% 100 ML IV SCH (17:00)
[2020-06-10] MEDS ORDERED: cefTRIAXone 1 GM in Sodium Chloride 0.9% 100 ML IV ONE (21:00)
[2020-06-10] MEDS: tiZANidine 4 MG Tab PO SCH (21:26)
[2020-06-10] MEDS: Rosuvastatin 10 MG Tab PO SCH (21:26)
[2020-06-11] MEDS: Lactated Ringers 1,000 ML IV SCH ×2 (06:51→23:12)
--- NOTE | 2020-06-11 08:50 | PCM.PN ---
- General Info Date of Service: 06/11/20 Admission Dx/Problem (Free Text): Admission Diagnosis/Problem Admission Diagnosis/Problem Urinary tract infection Subjective Update: To see Yuliya. She reports she feels pretty good overall. She is sitting up in the chair. Unexpectedly her blood culture did return with one of the 4 bottles growing staph aureus. There are no sensitivities on this as of yet. Interestingly her urine culture is growing gram-negative rods. Nursing performed a skin assessment on the patient and noted no new areas of ulceration, drainage, or other signs of infection. 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 Site does appear mildly warm but there is no drainage, redness, or other signs of infection. Did discuss case with Laura Buck PA-C with Dr. Aragon's office and she notes that usually when the joint becomes infected the patient will be unable to ambulate, reports significant pain, and we will see fevers that are very high. Patient has had fever as high as 103 and a couple that have been near 101. Given this we will add vancomycin and continue the Rocephin. Dr. Mead, attending hospitalist, increased Rocephin to 2 g yesterday after patient spiked a fever. Patient's WBC has improved and remains stable today. CRP is elevated. Labs otherwise remained stable. No other concerns. We will recheck blood cultures tomorrow. Hemoglobin stable at 10.0. Patient will likely need to be here 2-3 more days minimum. Functional Status: Reports: Pain Controlled, Tolerating Diet, Ambulating, Urinating, Incentive Spirometry. Denies: New Symptoms - Review of Systems General: Reports: Fever (today ), Weakness (improving ), Chills. Denies: Fatigue, Malaise HEENT: Reports: No Symptoms. Denies: Headaches, Sore Throat Pulmonary: Reports: No Symptoms. Denies: Shortness of Breath, Cough, Sputum Cardiovascular: Reports: No Symptoms. Denies: Chest Pain, Palpitations, Dyspnea on Exertion, Edema Gastrointestinal: Reports: Diarrhea. Denies: Abdominal Pain, Constipation, Nausea, Vomiting Genitourinary: Reports: No Symptoms. Denies: Pain Musculoskeletal: Denies: Leg Pain Skin: Reports: No Symptoms. Denies: Cyanosis Neurological: Reports: No Symptoms, Difficulty Walking, Weakness, Gait Disturbance. Denies: Confusion Psychiatric: Reports: No Symptoms - Patient Data Vitals - Most Recent: Last Vital Signs Temp 98.1 F 06/11/20 03:37 Pulse 73 06/11/20 03:37 Resp 18 06/11/20 03:37 BP 112/78 06/11/20 03:37 Pulse Ox 97 06/11/20 03:37 Weight - Most Recent: 133 lb 8 oz I&O - Last 24 Hours: Intake & Output 06/10/20 06/11/20 06/11/20 22:59 06:59 14:59 Intake Total 1575 946 Output Total 300 Balance 1275 946 Lab Results Last 24 Hours: Laboratory Results - last 24 hr 06/10/20 06/10/20 06/11/20 Range/Units 05:18 21:23 05:15 WBC 10.70 H (3.98-10.04) K/mm3 RBC 3.08 L (3.98-5.22) M/mm3 Hgb 10.0 L (11.2-15.7) gm/dl Hct 32.3 L (34.1-44.9) % MCV 104.9 H (79.4-94.8) fl MCH 32.5 H (25.6-32.2) pg MCHC 31.0 L (32.2-35.5) g/dl RDW Std Deviation 53.5 H (36.4-46.3) fL Plt Count 302 (182-369) K/mm3 MPV 9.3 L (9.4-12.3) fl Neut % (Auto) 74.8 H (34.0-71.1) % Lymph % (Auto) 13.9 L (19.3-51.7) % Greene % (Auto) 9.3 (4.7-12.5) % Eos % (Auto) 1.5 (0.7-5.8) Baso % (Auto) 0.2 (0.1-1.2) % Neut # (Auto) 8.00 H (1.56-6.13) K/mm3 Lymph # (Auto) 1.49 (1.18-3.74) K/mm3 Greene # (Auto) 1.00 H (0.24-0.36) K/mm3 Eos # (Auto) 0.16 (0.04-0.36) K/mm3 Baso # (Auto) 0.02 (0.01-0.08) K/mm3 Sodium (136-145) mEq/L Potassium (3.5-5.1) mEq/L Chloride (98-107) mEq/L Carbon Dioxide (21-32) mEq/L Anion Gap (5-15) BUN (7-18) mg/dL Creatinine (0.55-1.02) mg/dL Est Cr Clr Drug Dosing mL/min Estimated GFR (MDRD) (>60) mL/min BUN/Creatinine Ratio (14-18) Glucose (83-115) mg/dL Lactic Acid 0.9 (0.4-2.0) mmol/L Calcium (8.5-10.1) mg/dL Magnesium 1.7 L (1.8-2.4) mg/dl Total Bilirubin (0.2-1.0) mg/dL AST (15-37) U/L ALT (14-59) U/L Alkaline Phosphatase (46-116) U/L C-Reactive Protein (<1.0) mg/dL Total Protein (6.4-8.2) g/dl Albumin (3.4-5.0) g/dl Globulin gm/dL Albumin/Globulin Ratio (1-2) 06/11/20 06/11/20 Range/Units 05:15 05:15 WBC (3.98-10.04) K/mm3 RBC (3.98-5.22) M/mm3 Hgb (11.2-15.7) gm/dl Hct (34.1-44.9) % MCV (79.4-94.8) fl MCH (25.6-32.2) pg MCHC (32.2-35.5) g/dl RDW Std Deviation (36.4-46.3) fL Plt Count (182-369) K/mm3 MPV (9.4-12.3) fl Neut % (Auto) (34.0-71.1) % Lymph % (Auto) (19.3-51.7) % Greene % (Auto) (4.7-12.5) % Eos % (Auto) (0.7-5.8) Baso % (Auto) (0.1-1.2) % Neut # (Auto) (1.56-6.13) K/mm3 Lymph # (Auto) (1.18-3.74) K/mm3 Greene # (Auto) (0.24-0.36) K/mm3 Eos # (Auto) (0.04-0.36) K/mm3 Baso # (Auto) (0.01-0.08) K/mm3 Sodium 145 (136-145) mEq/L Potassium 3.9 (3.5-5.1) mEq/L Chloride 108 H (98-107) mEq/L Carbon Dioxide 26 (21-32) mEq/L Anion Gap 14.9 (5-15) BUN 8 (7-18) mg/dL Creatinine 0.7 (0.55-1.02) mg/dL Est Cr Clr Drug Dosing 51.54 mL/min Estimated GFR (MDRD) > 60 (>60) mL/min BUN/Creatinine Ratio 11.4 L (14-18) Glucose 102 (83-115) mg/dL Lactic Acid (0.4-2.0) mmol/L Calcium 8.4 L (8.5-10.1) mg/dL Magnesium 2.1 (1.8-2.4) mg/dl Total Bilirubin 0.4 (0.2-1.0) mg/dL AST 25 (15-37) U/L ALT 29 (14-59) U/L Alkaline Phosphatase 64 (46-116) U/L C-Reactive Protein 39.1 H* (<1.0) mg/dL Total Protein 6.3 L (6.4-8.2) g/dl Albumin 2.4 L (3.4-5.0) g/dl Globulin 3.9 gm/dL Albumin/Globulin Ratio 0.6 L (1-2) Ramon Results Last 24 Hours: Microbiology 06/09/20 16:30 Aerobic Blood Culture - Preliminary Blood - Venous - Lab Draw NO GROWTH AFTER 1 DAY Anaerobic Blood Culture - Preliminary NO GROWTH AFTER 1 DAY 06/09/20 16:38 Aerobic Blood Culture - Preliminary Blood - Venous NO GROWTH AFTER 1 DAY Anaerobic Blood Culture - Preliminary Staphylococcus Aureus 06/09/20 18:17 Urine Culture - Preliminary Urine, Bladder Gram Negative Rods Med Orders - Current: Current Medications Acetaminophen (Acetaminophen 650 Mg Supp) 650 mg RECTAL Q4H PRN PRN Reason: Pain (mild 1-3) Last Admin: 06/10/20 16:40 Dose: 650 mg Documented by: Acetaminophen (Acetaminophen 325 Mg Tab) 650 mg PO Q4H PRN PRN Reason: Pain/Fever Last Admin: 06/10/20 21:27 Dose: 650 mg Documented by: Albuterol/Ipratropium (Albuterol/Ipratropium 3.0-0.5 Mg/3 Ml Neb Soln) 3 ml NEB Q4H PRN PRN Reason: Shortness Of Breath/wheezing Amlodipine Besylate (Amlodipine 5 Mg Tab) 5 mg PO DAILY [facility] Last Admin: 06/10/20 08:47 Dose: 5 mg Documented by: Aspirin (Aspirin 325 Mg Tab.Ec) 325 mg PO BID [facility] Last Admin: 06/10/20 21:26 Dose: 325 mg Documented by: Cholecalciferol (Cholecalciferol (Vitamin D3) 5,000 Unit Cap) 5,000 unit PO DAILY [facility] Last Admin: 06/10/20 08:48 Dose: 5,000 unit Documented by: Enoxaparin Sodium (Enoxaparin 40 Mg/0.4 Ml Syringe) 40 mg SUBCUT DAILY [facility] Last Admin: 06/10/20 08:48 Dose: 40 mg Documented by: Hydralazine HCl (Hydralazine 20 Mg/Ml Sdv) 10 mg IVPUSH Q4H PRN PRN Reason: Hypertension Hydrochlorothiazide (Hydrochlorothiazide 25 Mg Tab) 25 mg PO DAILY [facility] Last Admin: 06/10/20 08:47 Dose: 25 mg Documented by: Lactated Ringer's (Ringers, Lactated) 1,000 mls @ 65 mls/hr IV ASDIRECTED [facility] Last Admin: 06/11/20 06:51 Dose: 65 mls/hr Documented by: Promethazine HCl 12.5 mg/ (Sodium Chloride) 50.5 mls @ 100 mls/hr IV Q6H PRN PRN Reason: Nausea/Vomiting Ceftriaxone Sodium 2 gm/ (Sodium Chloride) 100 mls @ 200 mls/hr IV Q24H [facility] Losartan Potassium (Losartan 50 Mg Tab) 50 mg PO DAILY [facility] Last Admin: 06/10/20 08:47 Dose: 50 mg Documented by: Ondansetron HCl (Ondansetron 4 Mg/2 Ml Sdv) 4 mg IVPUSH Q6H PRN PRN Reason: Nausea/Vomiting Potassium Chloride (Potassium Chloride 20 Meq Tab.Er) 40 meq PO BID [facility] Stop: 06/11/20 09:01 Last Admin: 06/10/20 21:26 Dose: 40 meq Documented by: Rosuvastatin Calcium (Rosuvastatin 10 Mg Tab) 10 mg PO BEDTIME [facility] Last Admin: 06/10/20 21:26 Dose: 10 mg Documented by: Sertraline HCl (Sertraline 50 Mg Tab) 75 mg PO DAILY [facility] Last Admin: 06/10/20 08:47 Dose: 75 mg Documented by: Sodium Chloride (Sodium Chloride 0.9% 10 Ml Syringe) 10 ml FLUSH ASDIRECTED PRN PRN Reason: Keep Vein Open Last Admin: 06/09/20 16:42 Dose: 10 ml Documented by: Tizanidine HCl (Tizanidine 4 Mg Tab) 4 mg PO BEDTIME [facility] Last Admin: 06/10/20 21:26 Dose: 4 mg Documented by: Tramadol HCl (Tramadol 50 Mg Tab) 50 mg PO Q6H PRN PRN Reason: Pain (moderate 4-6) Last Admin: 06/11/20 06:50 Dose: 50 mg Documented by: Vancomycin HCl (Pharmacy To Dose - Vancomycin) 1 dose .XX ASDIRECTED [facility] Discontinued Medications Acetaminophen (Acetaminophen 325 Mg Tab) 975 mg PO NOW ONE Stop: 06/09/20 16:09 Last Admin: 06/09/20 16:42 Dose: 975 mg Documented by: Ceftriaxone Sodium 2 gm/ (Sodium Chloride) 100 mls @ 200 mls/hr IV STAT ONE Stop: 06/09/20 16:34 Last Admin: 06/09/20 16:22 Dose: Not Given Documented by: Sodium Chloride (Normal Saline) 1,000 mls @ 1,000 mls/hr IV BOLUS ONE; Protocol Stop: 06/09/20 17:04 Last Admin: 06/09/20 16:42 Dose: 1,000 mls/hr Documented by: Ceftriaxone Sodium 2 gm/ (Sodium Chloride) 100 mls @ 200 mls/hr IV ONETIME ONE Stop: 06/09/20 16:51 Last Admin: 06/09/20 16:42 Dose: 200 mls/hr Documented by: Ceftriaxone Sodium 1 gm/ (Sodium Chloride) 100 mls @ 200 mls/hr IV Q24H [facility] Last Admin: 06/10/20 18:15 Dose: 200 mls/hr Documented by: Magnesium Sulfate (Magnesium Sulfate In Water 2 Gm/50 Ml) 2 gm in 50 mls @ 25 mls/hr IV ONETIME ONE Stop: 06/10/20 14:58 Last Admin: 06/10/20 13:59 Dose: 25 mls/hr Documented by: Ceftriaxone Sodium 1 gm/ (Sodium Chloride) 100 mls @ 200 mls/hr IV ONETIME ONE Stop: 06/10/20 21:29 Last Admin: 06/10/20 21:36 Dose: 200 mls/hr Documented by: Morphine Sulfate (Morphine 2 Mg/Ml Syringe) 2 mg IVPUSH Q4H PRN PRN Reason: Pain (severe 7-10) Stop: 06/10/20 19:49 - Exam Quality Assessment: DVT Prophylaxis. No: Supplemental Oxygen, Urine Catheter General: Alert, Oriented, Cooperative, No Acute Distress HEENT: Pupils Equal, Pupils Reactive, Mucous Membr. Moist/[place] Neck: Supple, Trachea Midline Lungs: Clear to Auscultation, Normal Respiratory Effort Cardiovascular: Regular Rate, Regular Rhythm GI/Abdominal Exam: Normal Bowel Sounds, Soft, Non-Tender, No Distention (Female) Exam: Deferred Back Exam: Normal Inspection, Full Range of Motion Extremities: Normal Inspection, Normal Range of Motion, Non-Tender, No Pedal Edema, Normal Capillary Refill, Other (Bandage on left knee S/P TKA - Incision site is mildly warm but there is no drainage, redness, or signs of active infection.) - Patient Data Lab Results Last 24 hrs: Laboratory Results - last 24 hr 06/10/20 06/10/20 06/11/20 Range/Units 05:18 21:23 05:15 WBC 10.70 H (3.98-10.04) K/mm3 RBC 3.08 L (3.98-5.22) M/mm3 Hgb 10.0 L (11.2-15.7) gm/dl Hct 32.3 L (34.1-44.9) % MCV 104.9 H (79.4-94.8) fl MCH 32.5 H (25.6-32.2) pg MCHC 31.0 L (32.2-35.5) g/dl RDW Std Deviation 53.5 H (36.4-46.3) fL Plt Count 302 (182-369) K/mm3 MPV 9.3 L (9.4-12.3) fl Neut % (Auto) 74.8 H (34.0-71.1) % Lymph % (Auto) 13.9 L (19.3-51.7) % Greene % (Auto) 9.3 (4.7-12.5) % Eos % (Auto) 1.5 (0.7-5.8) Baso % (Auto) 0.2 (0.1-1.2) % Neut # (Auto) 8.00 H (1.56-6.13) K/mm3 Lymph # (Auto) 1.49 (1.18-3.74) K/mm3 Greene # (Auto) 1.00 H (0.24-0.36) K/mm3 Eos # (Auto) 0.16 (0.04-0.36) K/mm3 Baso # (Auto) 0.02 (0.01-0.08) K/mm3 Sodium (136-145) mEq/L Potassium (3.5-5.1) mEq/L Chloride (98-107) mEq/L Carbon Dioxide (21-32) mEq/L Anion Gap (5-15) BUN (7-18) mg/dL Creatinine (0.55-1.02) mg/dL Est Cr Clr Drug Dosing mL/min Estimated GFR (MDRD) (>60) mL/min BUN/Creatinine Ratio (14-18) Glucose (83-115) mg/dL Lactic Acid 0.9 (0.4-2.0) mmol/L Calcium (8.5-10.1) mg/dL Magnesium 1.7 L (1.8-2.4) mg/dl Total Bilirubin (0.2-1.0) mg/dL AST (15-37) U/L ALT (14-59) U/L Alkaline Phosphatase (46-116) U/L C-Reactive Protein (<1.0) mg/dL Total Protein (6.4-8.2) g/dl Albumin (3.4-5.0) g/dl Globulin gm/dL Albumin/Globulin Ratio (1-2) 06/11/20 06/11/20 Range/Units 05:15 05:15 WBC (3.98-10.04) K/mm3 RBC (3.98-5.22) M/mm3 Hgb (11.2-15.7) gm/dl Hct (34.1-44.9) % MCV (79.4-94.8) fl MCH (25.6-32.2) pg MCHC (32.2-35.5) g/dl RDW Std Deviation (36.4-46.3) fL Plt Count (182-369) K/mm3 MPV (9.4-12.3) fl Neut % (Auto) (34.0-71.1) % Lymph % (Auto) (19.3-51.7) % Greene % (Auto) (4.7-12.5) % Eos % (Auto) (0.7-5.8) Baso % (Auto) (0.1-1.2) % Neut # (Auto) (1.56-6.13) K/mm3 Lymph # (Auto) (1.18-3.74) K/mm3 Greene # (Auto) (0.24-0.36) K/mm3 Eos # (Auto) (0.04-0.36) K/mm3 Baso # (Auto) (0.01-0.08) K/mm3 Sodium 145 (136-145) mEq/L Potassium 3.9 (3.5-5.1) mEq/L Chloride 108 H (98-107) mEq/L Carbon Dioxide 26 (21-32) mEq/L Anion Gap 14.9 (5-15) BUN 8 (7-18) mg/dL Creatinine 0.7 (0.55-1.02) mg/dL Est Cr Clr Drug Dosing 51.54 mL/min Estimated GFR (MDRD) > 60 (>60) mL/min BUN/Creatinine Ratio 11.4 L (14-18) Glucose 102 (83-115) mg/dL Lactic Acid (0.4-2.0) mmol/L Calcium 8.4 L (8.5-10.1) mg/dL Magnesium 2.1 (1.8-2.4) mg/dl Total Bilirubin 0.4 (0.2-1.0) mg/dL AST 25 (15-37) U/L ALT 29 (14-59) U/L Alkaline Phosphatase 64 (46-116) U/L C-Reactive Protein 39.1 H* (<1.0) mg/dL Total Protein 6.3 L (6.4-8.2) g/dl Albumin 2.4 L (3.4-5.0) g/dl Globulin 3.9 gm/dL Albumin/Globulin Ratio 0.6 L (1-2) Result Diagrams: 06/11/20 05:15 06/11/20 05:15 Ramon Results Last 24 hrs: Microbiology 06/09/20 16:30 Aerobic Blood Culture - Preliminary Blood - Venous - Lab Draw NO GROWTH AFTER 1 DAY Anaerobic Blood Culture - Preliminary NO GROWTH AFTER 1 DAY 06/09/20 16:38 Aerobic Blood Culture - Preliminary Blood - Venous NO GROWTH AFTER 1 DAY Anaerobic Blood Culture - Preliminary Staphylococcus Aureus 06/09/20 18:17 Urine Culture - Preliminary Urine, Bladder Gram Negative Rods Sepsis Event Note - Evaluation Sepsis Screening Result: No Definite Risk - Focused Exam Vital Signs: Vital Signs Temp Pulse Resp BP Pulse Ox 06/11/20 03:37 98.1 F 73 18 112/78 97 06/11/20 00:04 98.4 F - Problem List & Annotations (1) Hypokalemia SNOMED Code(s): 44974972 Code(s): E87.6 - HYPOKALEMIA Status: Resolved Priority: High Current Visit: Yes (2) Atelectasis SNOMED Code(s): 64116446 Code(s): J98.11 - ATELECTASIS Status: Acute Priority: High Current Visit: Yes (3) Anemia SNOMED Code(s): 558474240 Code(s): D64.9 - ANEMIA, UNSPECIFIED Status: Acute Priority: High Current Visit: Yes Qualifiers: Anemia type: unspecified type Qualified Code(s): D64.9 - Anemia, unspecified (4) Leukocytosis SNOMED Code(s): 981642674, 699913762 Code(s): D72.829 - ELEVATED WHITE BLOOD CELL COUNT, UNSPECIFIED Status: Acute Priority: High Current Visit: Yes Qualifiers: Leukocytosis type: unspecified Qualified Code(s): D72.829 - Elevated white blood cell count, unspecified (5) Anxiety SNOMED Code(s): 98406304 Code(s): F41.9 - ANXIETY DISORDER, UNSPECIFIED Status: Chronic Priority: Low Current Visit: No (6) Depression SNOMED Code(s): 04799035 Code(s): F32.9 - MAJOR DEPRESSIVE DISORDER, SINGLE EPISODE, UNSPECIFIED Status: Chronic Priority: Low Current Visit: No Qualifiers: Depression Type: other depression Qualified Code(s): F32.89 - Other specified depressive episodes (7) UTI (urinary tract infection) SNOMED Code(s): 13811878 Code(s): N39.0 - URINARY TRACT INFECTION, SITE NOT SPECIFIED Status: Acute Priority: High Current Visit: Yes Qualifiers: Urinary tract infection type: acute cystitis Hematuria presence: with hematuria Qualified Code(s): N30.01 - Acute cystitis with hematuria (8) Sepsis SNOMED Code(s): 93031314 Code(s): A41.9 - SEPSIS, UNSPECIFIED ORGANISM Status: Resolved Priority: High Current Visit: Yes Qualifiers: Sepsis type: sepsis due to unspecified organism Sepsis acute organ dysfunction status: unspecified Qualified Code(s): A41.9 - Sepsis, unspecified organism (9) HTN (hypertension) SNOMED Code(s): 18112160 Code(s): I10 - ESSENTIAL (PRIMARY) HYPERTENSION Status: Chronic Priority: Medium Current Visit: No Qualifiers: Hypertension type: unspecified Qualified Code(s): I10 - Essential (primary) hypertension (10) Hypomagnesemia SNOMED Code(s): 795252340 Code(s): E83.42 - HYPOMAGNESEMIA Status: Resolved Priority: High Current Visit: Yes (11) Bacteremia SNOMED Code(s): 7889035 Code(s): R78.81 - BACTEREMIA Status: Acute Priority: High Current Visit: Yes - Problem List Review Problem List Initiated/Reviewed/Updated: Yes - My Orders Last 24 Hours: My Active Orders 06/10/20 09:58 Up With Assistance [RC] ASDIRECTED 06/10/20 11:00 Potassium Chloride [Klor-Con M20] 40 meq PO BID 06/10/20 11:58 RT Incentive Spirometry [RC] ASDIRECTED 06/10/20 12:22 Consult to Case Management/Environmental Health Manager [CONS] Routine 06/11/20 08:45 Echo 2D wo Cont [US] Routine Pharmacy to Dose - Vancomycin 1 dose .XX ASDIRECTED 06/11/20 08:47 METH-RESIST S.AUR,MRSA BY PCR [MOLEC] Routine 06/11/20 08:48 Nurse Communication: Isolation [RC] ASDIRECTED Isolation [COMM] Routine 06/12/20 05:11 CRP [C-REACTIVE PROTEIN] [CHEM] AM MAGNESIUM [CHEM] AM 06/13/20 05:11 CRP [C-REACTIVE PROTEIN] [CHEM] AM MAGNESIUM [CHEM] AM 06/14/20 05:11 CRP [C-REACTIVE PROTEIN] [CHEM] AM MAGNESIUM [CHEM] AM - Plan Plan:: Pt is a 80 yof with a hx of HTN who presented to the ER due to fever and chills for days. Pt started to have fever and chills associated with mild dizziness and fatique days ago. UA compatible with UTI. Assessment and plan: Early sepsis, Resolved Atelectasis Bacteremia Fever LA 0.9, CRP 28.5-->39.1 Blood culture / bottles positive for Staph aureus CXR: 1. Density within medial left upper lung, difficult to exclude minimal area of pneumonia. 2. Slight density within the left lung base most likely due to atelectasis. 1L NS bolus was given in the ER Antibiotics - Start vancomycin and continue Rocephin IS Discuss case with Dr. Aragon's office as patient has incision from TKA Re-check Blood cultures tomorrow (06/12/20) Leukocytosis, improved Monitor CBC Continue ceftriaxone for UTI Vancomycin for bacteremia UTI UA compatible with UTI Creatinine 0.9-->0.7 Ceftriaxone iv daily -> increase to 2gm Urine cultures showing gram negative bacteria but patient given abx prior HTN Continue home meds amlodipine 5mg daily, losartan 50mg daily, HCTZ 25mg daily Hydralazine prn Depression/anxiety continue home sertraline. Ativan 0.5mg iv Q6hrs prn Hypokalemia, Resolved Hypokalemia, Resolved Potassium 3.0-->3.9; Magnesium 1.7-->2.1 Monitor daily labs Anemia Hgb 9.9-->10.0 No signs of active bleeding Likely worsened by IV fluid dilution Monitor CBC DVT prophylaxis: Lovenox Deposition: PT/OT Await urine/blood cultures
[2020-06-11] MEDS ORDERED: Vancomycin 1 GM, Vancomycin 250 MG in Sodium Chloride 0.9% 250 ML IV ONE (09:00)
[2020-06-11] MEDS: Acetaminophen 325 MG Tab PO PRN ×2 (09:48→21:51)
[2020-06-11] MEDS: Aspirin 325 MG Tab.EC PO SCH ×2 (09:48→21:51)
[2020-06-11] MEDS: Sertraline 50 MG Tab PO SCH (09:48)
[2020-06-11] MEDS: amLODIPine 5 MG Tab PO SCH (09:49)
[2020-06-11] MEDS: Potassium Chloride 20 MEQ Tab.ER PO SCH (09:50)
[2020-06-11] MEDS: Hydrochlorothiazide 25 MG Tab PO SCH (09:50)
[2020-06-11] MEDS: Losartan 50 MG Tab PO SCH (09:50)
[2020-06-11] MEDS: Enoxaparin 40 MG/0.4 ML Syringe SUBCUT SCH (09:51)
[2020-06-11] MEDS: Cholecalciferol (Vitamin D3) 5,000 UNIT Cap PO SCH (09:51)
[2020-06-11] MEDS: cefTRIAXone 2 GM in Sodium Chloride 0.9% 100 ML IV SCH (17:14)
[2020-06-11] MEDS: tiZANidine 4 MG Tab PO SCH (21:51)
[2020-06-11] MEDS: Rosuvastatin 10 MG Tab PO SCH (21:51)
--- NOTE | 2020-06-12 07:40 | PCM.PN ---
- General Info Date of Service: 06/12/20 Admission Dx/Problem (Free Text): Admission Diagnosis/Problem Admission Diagnosis/Problem Urinary tract infection Subjective Update: In to see Yuliya. She reports she is doing relatively well although she is chilled. She reports this is her norm as she is "always cold". She did have a fever yesterday evening. Blood cultures returning MSSA. Repeat cultures were obtained today. Vancomycin will therefore be stopped and we will continue with her Rocephin. WBC and CRP have improved. We will continue current treatment plan. Length of stay 1-2 more days pending repeat blood cultures. Discontinue IV fluids today. She is not requiring any oxygen. Functional Status: Reports: Pain Controlled, Tolerating Diet, Ambulating, Urinating, Incentive Spirometry. Denies: New Symptoms - Review of Systems General: Reports: Fever (yesterday PM), Weakness (improving ), Chills. Denies: Fatigue, Malaise HEENT: Reports: No Symptoms. Denies: Headaches, Sore Throat Pulmonary: Reports: No Symptoms. Denies: Shortness of Breath, Cough, Sputum, Wheezing Cardiovascular: Reports: No Symptoms. Denies: Chest Pain, Palpitations, Dyspnea on Exertion, Edema Gastrointestinal: Reports: No Symptoms. Denies: Abdominal Pain, Constipation, Diarrhea, Nausea, Vomiting Genitourinary: Reports: No Symptoms. Denies: Pain Musculoskeletal: Reports: Leg Pain (left knee - minimal ) Skin: Reports: No Symptoms. Denies: Cyanosis Neurological: Reports: No Symptoms. Denies: Confusion, Pre-Existing Deficit, Difficulty Walking, Weakness, Gait Disturbance Psychiatric: Reports: No Symptoms - Patient Data Vitals - Most Recent: Last Vital Signs Temp 98.4 F 06/12/20 03:20 Pulse 70 06/12/20 03:20 Resp 12 06/12/20 03:20 BP 106/65 06/12/20 03:20 Pulse Ox 96 06/12/20 03:20 Weight - Most Recent: 133 lb 6.4 oz I&O - Last 24 Hours: Intake & Output 06/11/20 06/12/20 06/12/20 22:59 06:59 14:59 Intake Total 1950 1250 Output Total 400 300 Balance 1550 950 Lab Results Last 24 Hours: Laboratory Results - last 24 hr 06/11/20 06/12/20 06/12/20 Range/Units 17:27 06:36 06:36 WBC 8.29 (3.98-10.04) K/mm3 RBC 2.85 L (3.98-5.22) M/mm3 Hgb 9.3 L (11.2-15.7) gm/dl Hct 30.2 L (34.1-44.9) % MCV 106.0 H (79.4-94.8) fl MCH 32.6 H (25.6-32.2) pg MCHC 30.8 L (32.2-35.5) g/dl RDW Std Deviation 52.9 H (36.4-46.3) fL Plt Count 330 (182-369) K/mm3 MPV 9.1 L (9.4-12.3) fl Neut % (Auto) 72.3 H (34.0-71.1) % Lymph % (Auto) 15.9 L (19.3-51.7) % [place] % (Auto) 7.2 (4.7-12.5) % Eos % (Auto) 3.9 (0.7-5.8) Baso % (Auto) 0.5 (0.1-1.2) % Neut # (Auto) 5.99 (1.56-6.13) K/mm3 Lymph # (Auto) 1.32 (1.18-3.74) K/mm3 [place] # (Auto) 0.60 H (0.24-0.36) K/mm3 Eos # (Auto) 0.32 (0.04-0.36) K/mm3 Baso # (Auto) 0.04 (0.01-0.08) K/mm3 Manual Slide Review Abnormal smear Sodium 142 (136-145) mEq/L Potassium 4.0 (3.5-5.1) mEq/L Chloride 107 (98-107) mEq/L Carbon Dioxide 25 (21-32) mEq/L Anion Gap 14.0 (5-15) BUN 10 (7-18) mg/dL Creatinine 0.8 (0.55-1.02) mg/dL Est Cr Clr Drug Dosing 45.10 mL/min Estimated GFR (MDRD) > 60 (>60) mL/min BUN/Creatinine Ratio 12.5 L (14-18) Glucose 88 (83-115) mg/dL Calcium 8.4 L (8.5-10.1) mg/dL Magnesium (1.8-2.4) mg/dl Total Bilirubin 0.4 (0.2-1.0) mg/dL AST 38 H (15-37) U/L ALT 37 (14-59) U/L Alkaline Phosphatase 78 (46-116) U/L Total Protein 6.0 L (6.4-8.2) g/dl Albumin 2.2 L (3.4-5.0) g/dl Globulin 3.8 gm/dL Albumin/Globulin Ratio 0.6 L (1-2) MRSA (PCR) Negative 06/12/20 Range/Units 06:36 WBC (3.98-10.04) K/mm3 RBC (3.98-5.22) M/mm3 Hgb (11.2-15.7) gm/dl Hct (34.1-44.9) % MCV (79.4-94.8) fl MCH (25.6-32.2) pg MCHC (32.2-35.5) g/dl RDW Std Deviation (36.4-46.3) fL Plt Count (182-369) K/mm3 MPV (9.4-12.3) fl Neut % (Auto) (34.0-71.1) % Lymph % (Auto) (19.3-51.7) % [place] % (Auto) (4.7-12.5) % Eos % (Auto) (0.7-5.8) Baso % (Auto) (0.1-1.2) % Neut # (Auto) (1.56-6.13) K/mm3 Lymph # (Auto) (1.18-3.74) K/mm3 [place] # (Auto) (0.24-0.36) K/mm3 Eos # (Auto) (0.04-0.36) K/mm3 Baso # (Auto) (0.01-0.08) K/mm3 Manual Slide Review Sodium (136-145) mEq/L Potassium (3.5-5.1) mEq/L Chloride (98-107) mEq/L Carbon Dioxide (21-32) mEq/L Anion Gap (5-15) BUN (7-18) mg/dL Creatinine (0.55-1.02) mg/dL Est Cr Clr Drug Dosing mL/min Estimated GFR (MDRD) (>60) mL/min BUN/Creatinine Ratio (14-18) Glucose (83-115) mg/dL Calcium (8.5-10.1) mg/dL Magnesium 1.8 (1.8-2.4) mg/dl Total Bilirubin (0.2-1.0) mg/dL AST (15-37) U/L ALT (14-59) U/L Alkaline Phosphatase (46-116) U/L Total Protein (6.4-8.2) g/dl Albumin (3.4-5.0) g/dl Globulin gm/dL Albumin/Globulin Ratio (1-2) MRSA (PCR) Ramon Results Last 24 Hours: Microbiology 06/09/20 16:38 Aerobic Blood Culture - Preliminary Blood - Venous NO GROWTH AFTER 2 DAYS Anaerobic Blood Culture - Preliminary Staphylococcus Aureus 06/09/20 16:30 Aerobic Blood Culture - Preliminary Blood - Venous - Lab Draw NO GROWTH AFTER 2 DAYS Anaerobic Blood Culture - Preliminary NO GROWTH AFTER 2 DAYS 06/09/20 18:17 Urine Culture - Final Urine, Bladder Escherichia Coli Med Orders - Current: Current Medications Acetaminophen (Acetaminophen 650 Mg Supp) 650 mg RECTAL Q4H PRN PRN Reason: Pain (mild 1-3) Last Admin: 06/10/20 16:40 Dose: 650 mg Documented by: Acetaminophen (Acetaminophen 325 Mg Tab) 650 mg PO Q4H PRN PRN Reason: Pain/Fever Last Admin: 06/11/20 21:51 Dose: 650 mg Documented by: Albuterol/Ipratropium (Albuterol/Ipratropium 3.0-0.5 Mg/3 Ml Neb Soln) 3 ml NEB Q4H PRN PRN Reason: Shortness Of Breath/wheezing Amlodipine Besylate (Amlodipine 5 Mg Tab) 5 mg PO DAILY [facility] Last Admin: 06/11/20 09:49 Dose: 5 mg Documented by: Aspirin (Aspirin 325 Mg Tab.Ec) 325 mg PO BID [facility] Last Admin: 06/11/20 21:51 Dose: 325 mg Documented by: Cholecalciferol (Cholecalciferol (Vitamin D3) 5,000 Unit Cap) 5,000 unit PO DAILY [facility] Last Admin: 06/11/20 09:51 Dose: 5,000 unit Documented by: Enoxaparin Sodium (Enoxaparin 40 Mg/0.4 Ml Syringe) 40 mg SUBCUT DAILY [facility] Last Admin: 06/11/20 09:51 Dose: 40 mg Documented by: Hydralazine HCl (Hydralazine 20 Mg/Ml Sdv) 10 mg IVPUSH Q4H PRN PRN Reason: Hypertension Hydrochlorothiazide (Hydrochlorothiazide 25 Mg Tab) 25 mg PO DAILY [facility] Last Admin: 06/11/20 09:50 Dose: 25 mg Documented by: Lactated Ringer's (Ringers, Lactated) 1,000 mls @ 65 mls/hr IV ASDIRECTED [facility] Last Admin: 06/11/20 23:12 Dose: 65 mls/hr Documented by: Promethazine HCl 12.5 mg/ (Sodium Chloride) 50.5 mls @ 100 mls/hr IV Q6H PRN PRN Reason: Nausea/Vomiting Ceftriaxone Sodium 2 gm/ (Sodium Chloride) 100 mls @ 200 mls/hr IV Q24H [facility] Last Admin: 06/11/20 17:14 Dose: 200 mls/hr Documented by: Vancomycin HCl 1 gm/ Sodium (Chloride) 250 mls @ 250 mls/hr IV Q12H [facility] Last Admin: 06/11/20 21:51 Dose: 250 mls/hr Documented by: Losartan Potassium (Losartan 50 Mg Tab) 50 mg PO DAILY [facility] Last Admin: 06/11/20 09:50 Dose: 50 mg Documented by: Ondansetron HCl (Ondansetron 4 Mg/2 Ml Sdv) 4 mg IVPUSH Q6H PRN PRN Reason: Nausea/Vomiting Rosuvastatin Calcium (Rosuvastatin 10 Mg Tab) 10 mg PO BEDTIME [facility] Last Admin: 06/11/20 21:51 Dose: 10 mg Documented by: Sertraline HCl (Sertraline 50 Mg Tab) 75 mg PO DAILY [facility] Last Admin: 06/11/20 09:48 Dose: 75 mg Documented by: Sodium Chloride (Sodium Chloride 0.9% 10 Ml Syringe) 10 ml FLUSH ASDIRECTED PRN PRN Reason: Keep Vein Open Last Admin: 06/09/20 16:42 Dose: 10 ml Documented by: Tizanidine HCl (Tizanidine 4 Mg Tab) 4 mg PO BEDTIME [facility] Last Admin: 06/11/20 21:51 Dose: 4 mg Documented by: Tramadol HCl (Tramadol 50 Mg Tab) 50 mg PO Q6H PRN PRN Reason: Pain (moderate 4-6) Last Admin: 06/11/20 06:50 Dose: 50 mg Documented by: Vancomycin HCl (Pharmacy To Dose - Vancomycin) 1 dose .XX ASDIRECTED PRN PRN Reason: RX TO DOSE VANCO Discontinued Medications Acetaminophen (Acetaminophen 325 Mg Tab) 975 mg PO NOW ONE Stop: 06/09/20 16:09 Last Admin: 06/09/20 16:42 Dose: 975 mg Documented by: Ceftriaxone Sodium 2 gm/ (Sodium Chloride) 100 mls @ 200 mls/hr IV STAT ONE Stop: 06/09/20 16:34 Last Admin: 06/09/20 16:22 Dose: Not Given Documented by: Sodium Chloride (Normal Saline) 1,000 mls @ 1,000 mls/hr IV BOLUS ONE; Protocol Stop: 06/09/20 17:04 Last Admin: 06/09/20 16:42 Dose: 1,000 mls/hr Documented by: Ceftriaxone Sodium 2 gm/ (Sodium Chloride) 100 mls @ 200 mls/hr IV ONETIME ONE Stop: 06/09/20 16:51 Last Admin: 06/09/20 16:42 Dose: 200 mls/hr Documented by: Ceftriaxone Sodium 1 gm/ (Sodium Chloride) 100 mls @ 200 mls/hr IV Q24H [facility] Last Admin: 06/10/20 18:15 Dose: 200 mls/hr Documented by: Magnesium Sulfate (Magnesium Sulfate In Water 2 Gm/50 Ml) 2 gm in 50 mls @ 25 mls/hr IV ONETIME ONE Stop: 06/10/20 14:58 Last Admin: 06/10/20 13:59 Dose: 25 mls/hr Documented by: Ceftriaxone Sodium 1 gm/ (Sodium Chloride) 100 mls @ 200 mls/hr IV ONETIME ONE Stop: 06/10/20 21:29 Last Admin: 06/10/20 21:36 Dose: 200 mls/hr Documented by: Vancomycin HCl 1 gm/Vancomycin HCl 250 mg/ Sodium Chloride 250 mls @ 166.667 mls/hr IV ONETIME ONE Stop: 06/11/20 10:29 Last Admin: 06/11/20 09:51 Dose: 166.667 mls/hr Documented by: Morphine Sulfate (Morphine 2 Mg/Ml Syringe) 2 mg IVPUSH Q4H PRN PRN Reason: Pain (severe 7-10) Stop: 06/10/20 19:49 Potassium Chloride (Potassium Chloride 20 Meq Tab.Er) 40 meq PO BID [facility] Stop: 06/11/20 09:01 Last Admin: 06/11/20 09:50 Dose: 40 meq Documented by: - Exam Quality Assessment: DVT Prophylaxis. No: Supplemental Oxygen, Urine Catheter General: Alert, Oriented, Cooperative, No Acute Distress HEENT: Pupils Equal, Pupils Reactive, Mucous Membr. Moist/[place] Neck: Supple, Trachea Midline Lungs: Clear to Auscultation, Normal Respiratory Effort Cardiovascular: Regular Rate, Regular Rhythm GI/Abdominal Exam: Normal Bowel Sounds, Soft, Non-Tender, No Distention (Female) Exam: Deferred Back Exam: Normal Inspection, Full Range of Motion Extremities: Normal Inspection, Normal Range of Motion, Non-Tender, No Pedal Edema Peripheral Pulses: 2+: Radial (L), Radial (R), Dorsalis Pedis (L), Dorsalis Pe dis (R) Skin: Warm, Dry, Intact Wound/Incisions: Dressing Dry and Intact, No Drainage, Other (Bandage on left leg status post left TKA. No signs of any infection.). No: Erythema Neurological: No New Focal Deficit Psy/Mental Status: Alert, Normal Affect, Normal Mood - Patient Data Lab Results Last 24 hrs: Laboratory Results - last 24 hr 06/11/20 06/12/20 06/12/20 Range/Units 17:27 06:36 06:36 WBC 8.29 (3.98-10.04) K/mm3 RBC 2.85 L (3.98-5.22) M/mm3 Hgb 9.3 L (11.2-15.7) gm/dl Hct 30.2 L (34.1-44.9) % MCV 106.0 H (79.4-94.8) fl MCH 32.6 H (25.6-32.2) pg MCHC 30.8 L (32.2-35.5) g/dl RDW Std Deviation 52.9 H (36.4-46.3) fL Plt Count 330 (182-369) K/mm3 MPV 9.1 L (9.4-12.3) fl Neut % (Auto) 72.3 H (34.0-71.1) % Lymph % (Auto) 15.9 L (19.3-51.7) % [place] % (Auto) 7.2 (4.7-12.5) % Eos % (Auto) 3.9 (0.7-5.8) Baso % (Auto) 0.5 (0.1-1.2) % Neut # (Auto) 5.99 (1.56-6.13) K/mm3 Lymph # (Auto) 1.32 (1.18-3.74) K/mm3 [place] # (Auto) 0.60 H (0.24-0.36) K/mm3 Eos # (Auto) 0.32 (0.04-0.36) K/mm3 Baso # (Auto) 0.04 (0.01-0.08) K/mm3 Manual Slide Review Abnormal smear Sodium 142 (136-145) mEq/L Potassium 4.0 (3.5-5.1) mEq/L Chloride 107 (98-107) mEq/L Carbon Dioxide 25 (21-32) mEq/L Anion Gap 14.0 (5-15) BUN 10 (7-18) mg/dL Creatinine 0.8 (0.55-1.02) mg/dL Est Cr Clr Drug Dosing 45.10 mL/min Estimated GFR (MDRD) > 60 (>60) mL/min BUN/Creatinine Ratio 12.5 L (14-18) Glucose 88 (83-115) mg/dL Calcium 8.4 L (8.5-10.1) mg/dL Magnesium (1.8-2.4) mg/dl Total Bilirubin 0.4 (0.2-1.0) mg/dL AST 38 H (15-37) U/L ALT 37 (14-59) U/L Alkaline Phosphatase 78 (46-116) U/L Total Protein 6.0 L (6.4-8.2) g/dl Albumin 2.2 L (3.4-5.0) g/dl Globulin 3.8 gm/dL Albumin/Globulin Ratio 0.6 L (1-2) MRSA (PCR) Negative 06/12/20 Range/Units 06:36 WBC (3.98-10.04) K/mm3 RBC (3.98-5.22) M/mm3 Hgb (11.2-15.7) gm/dl Hct (34.1-44.9) % MCV (79.4-94.8) fl MCH (25.6-32.2) pg MCHC (32.2-35.5) g/dl RDW Std Deviation (36.4-46.3) fL Plt Count (182-369) K/mm3 MPV (9.4-12.3) fl Neut % (Auto) (34.0-71.1) % Lymph % (Auto) (19.3-51.7) % [place] % (Auto) (4.7-12.5) % Eos % (Auto) (0.7-5.8) Baso % (Auto) (0.1-1.2) % Neut # (Auto) (1.56-6.13) K/mm3 Lymph # (Auto) (1.18-3.74) K/mm3 [place] # (Auto) (0.24-0.36) K/mm3 Eos # (Auto) (0.04-0.36) K/mm3 Baso # (Auto) (0.01-0.08) K/mm3 Manual Slide Review Sodium (136-145) mEq/L Potassium (3.5-5.1) mEq/L Chloride (98-107) mEq/L Carbon Dioxide (21-32) mEq/L Anion Gap (5-15) BUN (7-18) mg/dL Creatinine (0.55-1.02) mg/dL Est Cr Clr Drug Dosing mL/min Estimated GFR (MDRD) (>60) mL/min BUN/Creatinine Ratio (14-18) Glucose (83-115) mg/dL Calcium (8.5-10.1) mg/dL Magnesium 1.8 (1.8-2.4) mg/dl Total Bilirubin (0.2-1.0) mg/dL AST (15-37) U/L ALT (14-59) U/L Alkaline Phosphatase (46-116) U/L Total Protein (6.4-8.2) g/dl Albumin (3.4-5.0) g/dl Globulin gm/dL Albumin/Globulin Ratio (1-2) MRSA (PCR) Result Diagrams: 06/12/20 06:36 06/12/20 06:36 Ramon Results Last 24 hrs: Microbiology 06/09/20 16:38 Aerobic Blood Culture - Preliminary Blood - Venous NO GROWTH AFTER 2 DAYS Anaerobic Blood Culture - Preliminary Staphylococcus Aureus 06/09/20 16:30 Aerobic Blood Culture - Preliminary Blood - Venous - Lab Draw NO GROWTH AFTER 2 DAYS Anaerobic Blood Culture - Preliminary NO GROWTH AFTER 2 DAYS 06/09/20 18:17 Urine Culture - Final Urine, Bladder Escherichia Coli Sepsis Event Note - Evaluation Sepsis Screening Result: No Definite Risk - Focused Exam Vital Signs: Vital Signs Temp Temp Pulse Resp BP Pulse Ox 06/12/20 03:20 98.4 F 70 12 106/65 96 06/11/20 22:41 98.8 F 06/11/20 21:51 101 F H 06/11/20 20:44 100.9 F H 85 14 130/71 92 L - Problem List & Annotations (1) Hypokalemia SNOMED Code(s): 43068257 Code(s): E87.6 - HYPOKALEMIA Status: Resolved Priority: High Current Visit: Yes (2) Atelectasis SNOMED Code(s): 71402696 Code(s): J98.11 - ATELECTASIS Status: Acute Priority: High Current Visit: Yes (3) Anemia SNOMED Code(s): 080591483 Code(s): D64.9 - ANEMIA, UNSPECIFIED Status: Acute Priority: High Current Visit: Yes Qualifiers: Anemia type: unspecified type Qualified Code(s): D64.9 - Anemia, unspecified (4) Leukocytosis SNOMED Code(s): 094817417, 726520908 Code(s): D72.829 - ELEVATED WHITE BLOOD CELL COUNT, UNSPECIFIED Status: Acute Priority: High Current Visit: Yes Qualifiers: Leukocytosis type: unspecified Qualified Code(s): D72.829 - Elevated white blood cell count, unspecified (5) Anxiety SNOMED Code(s): 72928753 Code(s): F41.9 - ANXIETY DISORDER, UNSPECIFIED Status: Chronic Priority: Low Current Visit: No (6) Depression SNOMED Code(s): 19182621 Code(s): F32.9 - MAJOR DEPRESSIVE DISORDER, SINGLE EPISODE, UNSPECIFIED Status: Chronic Priority: Low Current Visit: No Qualifiers: Depression Type: other depression Qualified Code(s): F32.89 - Other specified depressive episodes (7) UTI (urinary tract infection) SNOMED Code(s): 87374949 Code(s): N39.0 - URINARY TRACT INFECTION, SITE NOT SPECIFIED Status: Acute Priority: High Current Visit: Yes Qualifiers: Urinary tract infection type: acute cystitis Hematuria presence: with hematuria Qualified Code(s): N30.01 - Acute cystitis with hematuria (8) Sepsis SNOMED Code(s): 86065388 Code(s): A41.9 - SEPSIS, UNSPECIFIED ORGANISM Status: Resolved Priority: High Current Visit: Yes Qualifiers: Sepsis type: sepsis due to unspecified organism Sepsis acute organ dysfunction status: unspecified Qualified Code(s): A41.9 - Sepsis, unspecified organism (9) HTN (hypertension) SNOMED Code(s): 54186777 Code(s): I10 - ESSENTIAL (PRIMARY) HYPERTENSION Status: Chronic Priority: Medium Current Visit: No Qualifiers: Hypertension type: unspecified Qualified Code(s): I10 - Essential (primary) hypertension (10) Hypomagnesemia SNOMED Code(s): 193798841 Code(s): E83.42 - HYPOMAGNESEMIA Status: Resolved Priority: High Current Visit: Yes (11) Bacteremia SNOMED Code(s): 8871759 Code(s): R78.81 - BACTEREMIA Status: Acute Priority: High Current Visit: Yes (12) S/P total knee arthroplasty SNOMED Code(s): 4921292906116, 833921733, 8115677555682 Code(s): Z96.659 - PRESENCE OF UNSPECIFIED ARTIFICIAL KNEE JOINT Status: Chronic Priority: Low Current Visit: No Qualifiers: Laterality: left Qualified Code(s): Z96.652 - Presence of left artificial knee joint - Problem List Review Problem List Initiated/Reviewed/Updated: Yes - My Orders Last 24 Hours: My Active Orders 06/11/20 08:45 Pharmacy to Dose - Vancomycin 1 dose .XX ASDIRECTED PRN 06/11/20 08:48 Nurse Communication: Isolation [RC] ASDIRECTED Isolation [COMM] Routine 06/11/20 22:00 Vancomycin [Vancocin] 1 gm Sodium Chloride 0.9% [Normal Saline (AdvBag)] 250 ml IV Q12H 06/12/20 05:11 Blood Culture x2 Reflex Set [OM.PC] AM 06/12/20 06:36 CRP [C-REACTIVE PROTEIN] [CHEM] AM CULTURE BLOOD [BC] AM MAGNESIUM [CHEM] AM 06/12/20 06:47 CULTURE BLOOD [BC] AM 06/12/20 21:00 VANCOMYCIN TROUGH [CHEM] Timed 06/13/20 05:11 CRP [C-REACTIVE PROTEIN] [CHEM] AM MAGNESIUM [CHEM] AM 06/14/20 05:11 CRP [C-REACTIVE PROTEIN] [CHEM] AM MAGNESIUM [CHEM] AM - Plan Plan:: Pt is a 80 yof with a hx of HTN who presented to the ER due to fever and chills for days. Pt started to have fever and chills associated with mild dizziness and fatique days ago. UA compatible with UTI. Assessment and plan: Atelectasis Bacteremia Fever LA 0.9, CRP 28.5-->39.1-->35.5 Blood culture 1/4 bottles positive for MSSA CXR: 1. Density within medial left upper lung, difficult to exclude minimal area of pneumonia. 2. Slight density within the left lung base most likely due to atelectasis. 1L NS bolus was given in the ER Antibiotics - Discontinue vancomycin and continue rocephin IS Discuss case with Dr. Aragon's office as patient has incision from TKA Re-check Blood cultures today Discontinue IV fluids UTI UA compatible with UTI Creatinine 0.9-->0.7-->0.8 Ceftriaxone iv daily -> increase to 2gm Urine cultures growing durant sensitive E. Coli HTN Continue home meds amlodipine 5mg daily, losartan 50mg daily, HCTZ 25mg daily Hydralazine prn Depression/anxiety continue home sertraline. Ativan 0.5mg iv Q6hrs prn Anemia Hgb 9.9-->10.0-->9.3 No signs of active bleeding Likely worsened by IV fluid dilution Monitor CBC Iron panel shows iron deficiency Iron infusion S/P left TKA No current concerns Incision site looks good Monitor Hypokalemia, Resolved Hypokalemia, Resolved Early sepsis, Resolved Leukocytosis, Resolved DVT prophylaxis: Lovenox Deposition: PT/OT Await urine/blood cultures
[2020-06-12] MEDS: Enoxaparin 40 MG/0.4 ML Syringe SUBCUT SCH (08:45)
[2020-06-12] MEDS: Losartan 50 MG Tab PO SCH (08:50)
[2020-06-12] MEDS: Cholecalciferol (Vitamin D3) 5,000 UNIT Cap PO SCH (08:51)
[2020-06-12] MEDS: Aspirin 325 MG Tab.EC PO SCH ×2 (08:52→20:52)
[2020-06-12] MEDS: Hydrochlorothiazide 25 MG Tab PO SCH (08:52)
[2020-06-12] MEDS: amLODIPine 5 MG Tab PO SCH (08:53)
[2020-06-12] MEDS: Sertraline 50 MG Tab PO SCH (08:53)
[2020-06-12] MEDS ORDERED: Magnesium Sulfate/Water 2 GM/50 ML BAG IV ONE (10:00)
[2020-06-12] MEDS: Acetaminophen 325 MG Tab PO PRN ×2 (12:24→20:52)
--- NOTE | 2020-06-12 14:45 | CR ---
Chest: PA and lateral views of the chest were obtained. Comparison: Prior chest x-rays of 06/09/20 and 09/01/15. Focal parenchymal density is seen within the left upper lung. Small bilateral pleural effusions are seen. Mild left basilar atelectasis is noted. Heart size is within normal limits. Tortuous thoracic aorta is noted. Bony structures show nothing acute. Impression: 1. Left upper lobe density most likely representing pneumonia. This has increased from prior exam. 2. Small bilateral pleural effusions with mild left basilar atelectasis. Pleural effusions have slightly increased from prior study. Diagnostic code #3
[2020-06-12] MEDS ORDERED: Furosemide 20 MG/2 ML VIAL IVPUSH ONE (15:04)
--- NOTE | 2020-06-12 16:00 | CT ---
CT chest Technique: Multiple axial sections through the chest were obtained. Study was obtained without IV contrast. Reconstructed coronal and sagittal images were obtained. Comparison: Prior chest x-ray performed earlier on the same day (2:19 PM). Findings: Consolidating density is seen within the left upper lung compatible with probable pneumonia. Small left-sided pleural effusion is noted. No right-sided pleural effusion is seen. Slight atelectasis is noted within the right lung base. Increased density of uncertain etiology is noted within the fat within the right lateral side of the chest. Abdominal aorta shows atherosclerotic change. No pericardial thickening is seen. Multiple low density lesions are seen within visualized portions of the liver with larger areas having findings of cysts. Partially visualized cyst appears to be present off the left kidney which measures approximately 2.2 cm. Bone window settings were reviewed which show no acute osseous finding. Impression: 1. Consolidating density within the left upper lung most likely representing pneumonia. 2. Small left-sided pleural effusion is seen. 3. No right-sided pleural effusion is noted with minimal right basilar atelectasis. 4. Small low-density lesions within the visualized liver. Larger findings have Hounsfield unit measurements of cysts. Cyst is also noted off the left kidney. 5. Increased density is noted within the subcutaneous tissues of the right lateral chest. This is uncertain as to etiology and please correlate if patient has had previous radiation or infection. Diagnostic code #3
[2020-06-12] MEDS: cefTRIAXone 2 GM in Sodium Chloride 0.9% 100 ML IV SCH (19:14)
[2020-06-12] MEDS: Rosuvastatin 10 MG Tab PO SCH (20:52)
[2020-06-12] MEDS: tiZANidine 4 MG Tab PO SCH (20:52)
--- NOTE | 2020-06-13 07:24 | PCM.PN ---
- General Info Date of Service: 06/13/20 Admission Dx/Problem (Free Text): Admission Diagnosis/Problem Admission Diagnosis/Problem Urinary tract infection Subjective Update: In to see Yuliya. She reports that she feels about the same. She reports that her children not any worse than they have been for months. She has had no fever since yesterday and her repeat blood cultures thus far have been negative. She continues on IV Rocephin. CRP continues to trend downward and white count remains within normal limits. She is been up ambulating. We will continue curr ent treatment plan. Hopeful for discharge tomorrow pending continued improvement and continued negative blood cultures. Functional Status: Reports: Pain Controlled, Tolerating Diet, Ambulating, Urinating, Incentive Spirometry, Other (acapella ). Denies: New Symptoms - Review of Systems General: Reports: Weakness, Fatigue, Malaise, Chills (at baseline ). Denies: Fever HEENT: Reports: No Symptoms. Denies: Headaches, Sore Throat Pulmonary: Reports: No Symptoms. Denies: Shortness of Breath, Cough, Sputum, Wheezing Cardiovascular: Reports: No Symptoms. Denies: Chest Pain, Palpitations, Dyspnea on Exertion, Edema Gastrointestinal: Reports: No Symptoms. Denies: Abdominal Pain, Constipation, Diarrhea, Nausea, Vomiting Genitourinary: Reports: No Symptoms. Denies: Pain Musculoskeletal: Reports: Leg Pain (left knee) Skin: Reports: No Symptoms. Denies: Cyanosis Neurological: Reports: Pre-Existing Deficit, Difficulty Walking, Weakness. Denies: Confusion Psychiatric: Reports: No Symptoms - Patient Data Vitals - Most Recent: Last Vital Signs Temp 98.1 F 06/13/20 03:53 Pulse 64 06/13/20 03:53 Resp 12 06/13/20 03:53 BP 110/61 06/13/20 03:53 Pulse Ox 92 L 06/13/20 03:53 Weight - Most Recent: 131 lb 4.8 oz I&O - Last 24 Hours: Intake & Output 06/12/20 06/13/20 06/13/20 22:59 06:59 14:59 Intake Total 2045 700 Output Total 1050 300 Balance 995 400 Lab Results Last 24 Hours: Laboratory Results - last 24 hr 06/12/20 06/12/20 06/12/20 Range/Units 06:36 06:36 06:36 Manual Slide Review Abnormal smear Sodium 142 (136-145) mEq/L Potassium 4.0 (3.5-5.1) mEq/L Chloride 107 (98-107) mEq/L Carbon Dioxide 25 (21-32) mEq/L Anion Gap 14.0 (5-15) BUN 10 (7-18) mg/dL Creatinine 0.8 (0.55-1.02) mg/dL Est Cr Clr Drug Dosing 45.10 mL/min Estimated GFR (MDRD) > 60 (>60) mL/min BUN/Creatinine Ratio 12.5 L (14-18) Glucose 88 (83-115) mg/dL Calcium 8.4 L (8.5-10.1) mg/dL Magnesium 1.8 (1.8-2.4) mg/dl Iron (50-170) ug/dL TIBC (100-400) ug/dL % Saturation (20-55) % Transferrin (202-364) mg/dL Total Bilirubin 0.4 (0.2-1.0) mg/dL AST 38 H (15-37) U/L ALT 37 (14-59) U/L Alkaline Phosphatase 78 (46-116) U/L C-Reactive Protein 35.5 H* (<1.0) mg/dL Total Protein 6.0 L (6.4-8.2) g/dl Albumin 2.2 L (3.4-5.0) g/dl Globulin 3.8 gm/dL Albumin/Globulin Ratio 0.6 L (1-2) 06/12/20 Range/Units 06:36 Manual Slide Review Sodium (136-145) mEq/L Potassium (3.5-5.1) mEq/L Chloride (98-107) mEq/L Carbon Dioxide (21-32) mEq/L Anion Gap (5-15) BUN (7-18) mg/dL Creatinine (0.55-1.02) mg/dL Est Cr Clr Drug Dosing mL/min Estimated GFR (MDRD) (>60) mL/min BUN/Creatinine Ratio (14-18) Glucose (83-115) mg/dL Calcium (8.5-10.1) mg/dL Magnesium (1.8-2.4) mg/dl Iron 21 L (50-170) ug/dL TIBC 170 (100-400) ug/dL % Saturation 12 L (20-55) % Transferrin 136 L (202-364) mg/dL Total Bilirubin (0.2-1.0) mg/dL AST (15-37) U/L ALT (14-59) U/L Alkaline Phosphatase (46-116) U/L C-Reactive Protein (<1.0) mg/dL Total Protein (6.4-8.2) g/dl Albumin (3.4-5.0) g/dl Globulin gm/dL Albumin/Globulin Ratio (1-2) Ramon Results Last 24 Hours: Microbiology 06/12/20 06:36 Aerobic Blood Culture - Preliminary Blood - Venous NO GROWTH AFTER 1 DAY Anaerobic Blood Culture - Preliminary NO GROWTH AFTER 1 DAY 06/12/20 06:47 Aerobic Blood Culture - Preliminary Blood - Venous - Lab Draw NO GROWTH AFTER 1 DAY Anaerobic Blood Culture - Preliminary NO GROWTH AFTER 1 DAY 06/09/20 16:38 Aerobic Blood Culture - Preliminary Blood - Venous NO GROWTH AFTER 3 DAYS Anaerobic Blood Culture - Preliminary Staphylococcus Aureus 06/09/20 16:30 Aerobic Blood Culture - Preliminary Blood - Venous - Lab Draw NO GROWTH AFTER 3 DAYS Anaerobic Blood Culture - Preliminary NO GROWTH AFTER 3 DAYS Med Orders - Current: Current Medications Acetaminophen (Acetaminophen 650 Mg Supp) 650 mg RECTAL Q4H PRN PRN Reason: Pain (mild 1-3) Last Admin: 06/10/20 16:40 Dose: 650 mg Documented by: Acetaminophen (Acetaminophen 325 Mg Tab) 650 mg PO Q4H PRN PRN Reason: Pain/Fever Last Admin: 06/12/20 20:52 Dose: 650 mg Documented by: Albuterol/Ipratropium (Albuterol/Ipratropium 3.0-0.5 Mg/3 Ml Neb Soln) 3 ml NEB Q4H PRN PRN Reason: Shortness Of Breath/wheezing Amlodipine Besylate (Amlodipine 5 Mg Tab) 5 mg PO DAILY [facility] Last Admin: 06/12/20 08:53 Dose: 5 mg Documented by: Aspirin (Aspirin 325 Mg Tab.Ec) 325 mg PO BID [facility] Last Admin: 06/12/20 20:52 Dose: 325 mg Documented by: Cholecalciferol (Cholecalciferol (Vitamin D3) 5,000 Unit Cap) 5,000 unit PO DAILY [facility] Last Admin: 06/12/20 08:51 Dose: 5,000 unit Documented by: Enoxaparin Sodium (Enoxaparin 40 Mg/0.4 Ml Syringe) 40 mg SUBCUT DAILY [facility] Last Admin: 06/12/20 08:45 Dose: 40 mg Documented by: Hydralazine HCl (Hydralazine 20 Mg/Ml Sdv) 10 mg IVPUSH Q4H PRN PRN Reason: Hypertension Hydrochlorothiazide (Hydrochlorothiazide 25 Mg Tab) 25 mg PO DAILY [facility] Last Admin: 06/12/20 08:52 Dose: 25 mg Documented by: Promethazine HCl 12.5 mg/ (Sodium Chloride) 50.5 mls @ 100 mls/hr IV Q6H PRN PRN Reason: Nausea/Vomiting Ceftriaxone Sodium 2 gm/ (Sodium Chloride) 100 mls @ 200 mls/hr IV Q24H [facility] Last Admin: 06/12/20 19:14 Dose: 200 mls/hr Documented by: Losartan Potassium (Losartan 50 Mg Tab) 50 mg PO DAILY [facility] Last Admin: 06/12/20 08:50 Dose: 50 mg Documented by: Ondansetron HCl (Ondansetron 4 Mg/2 Ml Sdv) 4 mg IVPUSH Q6H PRN PRN Reason: Nausea/Vomiting Rosuvastatin Calcium (Rosuvastatin 10 Mg Tab) 10 mg PO BEDTIME [facility] Last Admin: 06/12/20 20:52 Dose: 10 mg Documented by: Sertraline HCl (Sertraline 50 Mg Tab) 75 mg PO DAILY [facility] Last Admin: 06/12/20 08:53 Dose: 75 mg Documented by: Sodium Chloride (Sodium Chloride 0.9% 10 Ml Syringe) 10 ml FLUSH ASDIRECTED PRN PRN Reason: Keep Vein Open Last Admin: 06/09/20 16:42 Dose: 10 ml Documented by: Tizanidine HCl (Tizanidine 4 Mg Tab) 4 mg PO BEDTIME [facility] Last Admin: 06/12/20 20:52 Dose: 4 mg Documented by: Tramadol HCl (Tramadol 50 Mg Tab) 50 mg PO Q6H PRN PRN Reason: Pain (moderate 4-6) Last Admin: 06/11/20 06:50 Dose: 50 mg Documented by: Discontinued Medications Acetaminophen (Acetaminophen 325 Mg Tab) 975 mg PO NOW ONE Stop: 06/09/20 16:09 Last Admin: 06/09/20 16:42 Dose: 975 mg Documented by: Furosemide (Furosemide 20 Mg/2 Ml Vial) 20 mg IVPUSH ONETIME ONE Stop: 06/12/20 15:05 Last Admin: 06/12/20 15:57 Dose: 20 mg Documented by: Ceftriaxone Sodium 2 gm/ (Sodium Chloride) 100 mls @ 200 mls/hr IV STAT ONE Stop: 06/09/20 16:34 Last Admin: 06/09/20 16:22 Dose: Not Given Documented by: Sodium Chloride (Normal Saline) 1,000 mls @ 1,000 mls/hr IV BOLUS ONE; Protocol Stop: 06/09/20 17:04 Last Admin: 06/09/20 16:42 Dose: 1,000 mls/hr Documented by: Ceftriaxone Sodium 2 gm/ (Sodium Chloride) 100 mls @ 200 mls/hr IV ONETIME ONE Stop: 06/09/20 16:51 Last Admin: 06/09/20 16:42 Dose: 200 mls/hr Documented by: Lactated Ringer's (Ringers, Lactated) 1,000 mls @ 65 mls/hr IV ASDIRECTED [facility] Last Admin: 06/11/20 23:12 Dose: 65 mls/hr Documented by: Ceftriaxone Sodium 1 gm/ (Sodium Chloride) 100 mls @ 200 mls/hr IV Q24H [facility] Last Admin: 06/10/20 18:15 Dose: 200 mls/hr Documented by: Magnesium Sulfate (Magnesium Sulfate In Water 2 Gm/50 Ml) 2 gm in 50 mls @ 25 mls/hr IV ONETIME ONE Stop: 06/10/20 14:58 Last Admin: 06/10/20 13:59 Dose: 25 mls/hr Documented by: Ceftriaxone Sodium 1 gm/ (Sodium Chloride) 100 mls @ 200 mls/hr IV ONETIME ONE Stop: 06/10/20 21:29 Last Admin: 06/10/20 21:36 Dose: 200 mls/hr Documented by: Vancomycin HCl 1 gm/Vancomycin HCl 250 mg/ Sodium Chloride 250 mls @ 166.667 mls/hr IV ONETIME ONE Stop: 06/11/20 10:29 Last Admin: 06/11/20 09:51 Dose: 166.667 mls/hr Documented by: Vancomycin HCl 1 gm/ Sodium (Chloride) 250 mls @ 250 mls/hr IV Q12H [facility] Last Admin: 06/12/20 10:02 Dose: 250 mls/hr Documented by: Magnesium Sulfate (Magnesium Sulfate In Water 2 Gm/50 Ml) 2 gm in 50 mls @ 25 mls/hr IV ONETIME ONE Stop: 06/12/20 11:59 Last Admin: 06/12/20 10:05 Dose: 25 mls/hr Documented by: Ferric Sodium Gluconate Complex 250 mg/ Sodium Chloride 120 mls @ 60 mls/hr IV ONETIME ONE Stop: 06/12/20 12:40 Last Admin: 06/12/20 11:54 Dose: 60 mls/hr Documented by: Morphine Sulfate (Morphine 2 Mg/Ml Syringe) 2 mg IVPUSH Q4H PRN PRN Reason: Pain (severe 7-10) Stop: 06/10/20 19:49 Potassium Chloride (Potassium Chloride 20 Meq Tab.Er) 40 meq PO BID [facility] Stop: 06/11/20 09:01 Last Admin: 06/11/20 09:50 Dose: 40 meq Documented by: Vancomycin HCl (Pharmacy To Dose - Vancomycin) 1 dose .XX ASDIRECTED PRN PRN Reason: RX TO DOSE VANCO - Exam Quality Assessment: DVT Prophylaxis. No: Supplemental Oxygen, Urine Catheter General: Alert, Oriented, Cooperative, No Acute Distress HEENT: Pupils Equal, Pupils Reactive, Mucous Membr. Moist/[place] Neck: Supple, Trachea Midline Lungs: Normal Respiratory Effort, Crackles (bases ) Cardiovascular: Regular Rate, Regular Rhythm GI/Abdominal Exam: Normal Bowel Sounds, Soft, Non-Tender, No Distention (Female) Exam: Deferred Back Exam: Normal Inspection, Full Range of Motion Extremities: Normal Inspection, Normal Range of Motion, Non-Tender, No Pedal Edema, Normal Capillary Refill, Other (Bandage in place on left knee s/p TKA. No signs of infection. No drainage. Minimal warmth.) Peripheral Pulses: 2+: Radial (L), Radial (R), Dorsalis Pedis (L), Dorsalis Pedis (R) Skin: Warm, Dry, Intact Neurological: No New Focal Deficit Psy/Mental Status: Alert, Normal Affect, Normal Mood - Patient Data Lab Results Last 24 hrs: Laboratory Results - last 24 hr 06/12/20 06/12/20 06/12/20 Range/Units 06:36 06:36 06:36 Manual Slide Review Abnormal smear Sodium 142 (136-145) mEq/L Potassium 4.0 (3.5-5.1) mEq/L Chloride 107 (98-107) mEq/L Carbon Dioxide 25 (21-32) mEq/L Anion Gap 14.0 (5-15) BUN 10 (7-18) mg/dL Creatinine 0.8 (0.55-1.02) mg/dL Est Cr Clr Drug Dosing 45.10 mL/min Estimated GFR (MDRD) > 60 (>60) mL/min BUN/Creatinine Ratio 12.5 L (14-18) Glucose 88 (83-115) mg/dL Calcium 8.4 L (8.5-10.1) mg/dL Magnesium 1.8 (1.8-2.4) mg/dl Iron (50-170) ug/dL TIBC (100-400) ug/dL % Saturation (20-55) % Transferrin (202-364) mg/dL Total Bilirubin 0.4 (0.2-1.0) mg/dL AST 38 H (15-37) U/L ALT 37 (14-59) U/L Alkaline Phosphatase 78 (46-116) U/L C-Reactive Protein 35.5 H* (<1.0) mg/dL Total Protein 6.0 L (6.4-8.2) g/dl Albumin 2.2 L (3.4-5.0) g/dl Globulin 3.8 gm/dL Albumin/Globulin Ratio 0.6 L (1-2) 06/12/20 Range/Units 06:36 Manual Slide Review Sodium (136-145) mEq/L Potassium (3.5-5.1) mEq/L Chloride (98-107) mEq/L Carbon Dioxide (21-32) mEq/L Anion Gap (5-15) BUN (7-18) mg/dL Creatinine (0.55-1.02) mg/dL Est Cr Clr Drug Dosing mL/min Estimated GFR (MDRD) (>60) mL/min BUN/Creatinine Ratio (14-18) Glucose (83-115) mg/dL Calcium (8.5-10.1) mg/dL Magnesium (1.8-2.4) mg/dl Iron 21 L (50-170) ug/dL TIBC 170 (100-400) ug/dL % Saturation 12 L (20-55) % Transferrin 136 L (202-364) mg/dL Total Bilirubin (0.2-1.0) mg/dL AST (15-37) U/L ALT (14-59) U/L Alkaline Phosphatase (46-116) U/L C-Reactive Protein (<1.0) mg/dL Total Protein (6.4-8.2) g/dl Albumin (3.4-5.0) g/dl Globulin gm/dL Albumin/Globulin Ratio (1-2) Result Diagrams: 06/13/20 07:00 06/13/20 07:00 Ramon Results Last 24 hrs: Microbiology 06/12/20 06:36 Aerobic Blood Culture - Preliminary Blood - Venous NO GROWTH AFTER 1 DAY Anaerobic Blood Culture - Preliminary NO GROWTH AFTER 1 DAY 06/12/20 06:47 Aerobic Blood Culture - Preliminary Blood - Venous - Lab Draw NO GROWTH AFTER 1 DAY Anaerobic Blood Culture - Preliminary NO GROWTH AFTER 1 DAY 06/09/20 16:38 Aerobic Blood Culture - Preliminary Blood - Venous NO GROWTH AFTER 3 DAYS Anaerobic Blood Culture - Preliminary Staphylococcus Aureus 06/09/20 16:30 Aerobic Blood Culture - Preliminary Blood - Venous - Lab Draw NO GROWTH AFTER 3 DAYS Anaerobic Blood Culture - Preliminary NO GROWTH AFTER 3 DAYS Sepsis Event Note - Evaluation Sepsis Screening Result: No Definite Risk - Focused Exam Vital Signs: Vital Signs Temp Pulse Resp BP Pulse Ox Pulse Ox 06/13/20 03:53 98.1 F 64 12 110/61 92 L 06/12/20 23:44 98.4 F 57 L 12 117/62 95 06/12/20 20:17 99.1 F 86 20 133/67 95 06/12/20 19:47 94 L - Problem List & Annotations (1) Hypokalemia SNOMED Code(s): 33107872 Code(s): E87.6 - HYPOKALEMIA Status: Resolved Priority: High Current Visit: Yes (2) Atelectasis SNOMED Code(s): 38164717 Code(s): J98.11 - ATELECTASIS Status: Acute Priority: High Current Visit: Yes (3) Anemia SNOMED Code(s): 196441304 Code(s): D64.9 - ANEMIA, UNSPECIFIED Status: Acute Priority: High Current Visit: Yes Qualifiers: Anemia type: unspecified type Qualified Code(s): D64.9 - Anemia, unspecified (4) Leukocytosis SNOMED Code(s): 810971916, 199362896 Code(s): D72.829 - ELEVATED WHITE BLOOD CELL COUNT, UNSPECIFIED Status: Acute Priority: High Current Visit: Yes Qualifiers: Leukocytosis type: unspecified Qualified Code(s): D72.829 - Elevated white blood cell count, unspecified (5) Anxiety SNOMED Code(s): 20699695 Code(s): F41.9 - ANXIETY DISORDER, UNSPECIFIED Status: Chronic Priority: Low Current Visit: No (6) Depression SNOMED Code(s): 46160044 Code(s): F32.9 - MAJOR DEPRESSIVE DISORDER, SINGLE EPISODE, UNSPECIFIED Status: Chronic Priority: Low Current Visit: No Qualifiers: Depression Type: other depression Qualified Code(s): F32.89 - Other specified depressive episodes (7) UTI (urinary tract infection) SNOMED Code(s): 86495049 Code(s): N39.0 - URINARY TRACT INFECTION, SITE NOT SPECIFIED Status: Acute Priority: High Current Visit: Yes Qualifiers: Urinary tract infection type: acute cystitis Hematuria presence: with hematuria Qualified Code(s): N30.01 - Acute cystitis with hematuria (8) Sepsis SNOMED Code(s): 95324325 Code(s): A41.9 - SEPSIS, UNSPECIFIED ORGANISM Status: Resolved Priority: High Current Visit: Yes Qualifiers: Sepsis type: sepsis due to unspecified organism Sepsis acute organ dysfunction status: unspecified Qualified Code(s): A41.9 - Sepsis, unspecified organism (9) HTN (hypertension) SNOMED Code(s): 14728366 Code(s): I10 - ESSENTIAL (PRIMARY) HYPERTENSION Status: Chronic Priority: Medium Current Visit: No Qualifiers: Hypertension type: unspecified Qualified Code(s): I10 - Essential (primary) hypertension (10) Hypomagnesemia SNOMED Code(s): 540381766 Code(s): E83.42 - HYPOMAGNESEMIA Status: Resolved Priority: High Current Visit: Yes (11) Bacteremia SNOMED Code(s): 7643255 Code(s): R78.81 - BACTEREMIA Status: Acute Priority: High Current Visit: Yes (12) S/P total knee arthroplasty SNOMED Code(s): 3243301062925, 797793626, 5570543515528 Code(s): Z96.659 - PRESENCE OF UNSPECIFIED ARTIFICIAL KNEE JOINT Status: Chronic Priority: Low Current Visit: No Qualifiers: Laterality: left Qualified Code(s): Z96.652 - Presence of left artificial k nee joint (13) Pneumonia SNOMED Code(s): 908875996 Code(s): J18.9 - PNEUMONIA, UNSPECIFIED ORGANISM Status: Acute Priority: High Current Visit: Yes Qualifiers: Pneumonia type: due to unspecified organism Laterality: left Lung location: upper lobe of lung Qualified Code(s): J18.9 - Pneumonia, unspecified organism (14) Iron deficiency SNOMED Code(s): 00658779 Code(s): E61.1 - IRON DEFICIENCY Status: Acute Priority: High Current Visit: Yes - Problem List Review Problem List Initiated/Reviewed/Updated: Yes - My Orders Last 24 Hours: My Active Orders 06/12/20 06:36 CULTURE BLOOD [BC] AM 06/12/20 06:47 CULTURE BLOOD [BC] AM 06/13/20 07:00 CRP [C-REACTIVE PROTEIN] [CHEM] AM MAGNESIUM [CHEM] AM 06/14/20 05:11 CRP [C-REACTIVE PROTEIN] [CHEM] AM MAGNESIUM [CHEM] AM - Plan Plan:: Pt is a 80 yof with a hx of HTN who presented to the ER due to fever and chills for days. Pt started to have fever and chills associated with mild dizziness and fatique days ago. UA compatible with UTI. Assessment and plan: Atelectasis Bacteremia Fever Pneumonia LA 0.9, CRP 28.5-->39.1-->35.5-->33.1 Blood culture 1/4 bottles positive for MSSA - durant sensitive CXR: 1. Density within medial left upper lung, difficult to exclude minimal area of pneumonia. 2. Slight density within the left lung base most likely due to atelectasis. 1L NS bolus was given in the ER Antibiotics - Discontinue vancomycin and continue Rocephin IS/Acapella Discuss case with Dr. Aragon's office as patient has incision from TKA Repeat blood cultures negative for 1 day UTI UA compatible with UTI Creatinine 0.9-->0.7-->0.8 Ceftriaxone 2 gm iv daily Urine cultures growing durant sensitive E. Coli HTN Continue home meds amlodipine 5mg daily, losartan 50mg daily, HCTZ 25mg daily Hydralazine prn Depression/anxiety continue home sertraline. Ativan 0.5mg iv Q6hrs prn Anemia Iron deficiency Hgb 9.9-->10.0-->9.3-->9.7 No signs of active bleeding Likely worsened by IV fluid dilution Monitor CBC Iron panel shows iron deficiency Iron infusion given 06/12/2020 S/P left TKA No current concerns Incision site looks good Monitor Hypokalemia, Resolved Hypokalemia, Resolved Early sepsis, Resolved Leukocytosis, Resolved DVT prophylaxis: Lovenox Deposition: PT/OT Await repeat blood cultures Likely discharge tomorrow - 06/14/2020 pending continued negative blood cultures and improvement.
[2020-06-13] MEDS: amLODIPine 5 MG Tab PO SCH (08:13)
[2020-06-13] MEDS: Hydrochlorothiazide 25 MG Tab PO SCH (08:13)
[2020-06-13] MEDS: Cholecalciferol (Vitamin D3) 5,000 UNIT Cap PO SCH (08:14)
[2020-06-13] MEDS: Aspirin 325 MG Tab.EC PO SCH ×2 (08:14→20:53)
[2020-06-13] MEDS: Losartan 50 MG Tab PO SCH (08:15)
[2020-06-13] MEDS: Enoxaparin 40 MG/0.4 ML Syringe SUBCUT SCH (08:15)
[2020-06-13] MEDS: Sertraline 50 MG Tab PO SCH (08:15)
[2020-06-13] MEDS: cefTRIAXone 2 GM in Sodium Chloride 0.9% 100 ML IV SCH (17:22)
[2020-06-13] MEDS: tiZANidine 4 MG Tab PO SCH (20:53)
[2020-06-13] MEDS: Rosuvastatin 10 MG Tab PO SCH (20:53)
[2020-06-14] MEDS: Enoxaparin 40 MG/0.4 ML Syringe SUBCUT SCH (08:40)
[2020-06-14] MEDS: Sertraline 50 MG Tab PO SCH (08:40)
[2020-06-14] MEDS: Losartan 50 MG Tab PO SCH (08:41)
[2020-06-14] MEDS: Aspirin 325 MG Tab.EC PO SCH (08:41)
[2020-06-14] MEDS: Hydrochlorothiazide 25 MG Tab PO SCH (08:41)
[2020-06-14] MEDS: amLODIPine 5 MG Tab PO SCH (08:41)
[2020-06-14] MEDS: Cholecalciferol (Vitamin D3) 5,000 UNIT Cap PO SCH (08:41)
--- NOTE | 2020-06-14 11:56 | PCM.DCSUM1 ---
Discharge Summary - Hospital Course HPI Initial Comments: Pt is a 80 yof with a hx of HTN who presented to the ER due to fever and chills for days. Pt started to have fever and chills associated with mild dizziness and fatique days ago. She also reports that she urinates more frequently. Otherwise she is fine. Denies headache, chest pain, sob, runny nose, abdominal pain, nausea, vomiting or dysuria. In the ER, UA compatible with UTI. 1L NS and one dose of ceftriaxone 2g were given. She was admitted to hospital for sepsis and UTI. Pt underwent arthroplasty 3 weeks ago. Assessment/Plan Comment:: Pt is a 80 yof with a hx of HTN who presented to the ER due to fever and chills for days. Pt started to have fever and chills associated with mild dizziness and fatique days ago. UA compatible with UTI. Assessment and plan: Early sepsis 2nd to UTI LA 0.9, CRP 28.5 Blood culture CXR pending 1L NS bolus was given in the ER Continue IVF antibiotics Leukocytosis Repeat CBC in am will order ceftriaxone for UTI UTI UA compatible with UTI Creatinine 0.9 Ceftriaxone 1g iv daily HTN Continue home meds amlodipine 5mg daily, losartan 50mg daily, HCTZ 25mg daily Hydralazine prn Depression/anxiety continue home sertraline. ativan 0.5mg iv Q6hrs prn DVT prophylaxis: lovenox Deposition: PT/OT - Mortality Measure Prognosis:: Good Diagnosis: Stroke: No - Discharge Data Discharge Date: 06/14/20 Discharge Disposition: Home, Self-Care 01 Condition: Good - Referral to Home Health Primary Care Physician: Elsy Mayfield MD - Patient Summary/Data Consults: Consultations 06/09/20 19:51 OT Evaluation and Treatment [CONS] Routine PT Evaluation and Treatment [CONS] Routine 06/10/20 12:22 Consult to Case Management/Pipe Fitter Ammonia [CONS] Routine Hospital Course: Pt is a 80 yof with a hx of HTN who presented to the ER due to fever and chills for days. Pt started to have fever and chills associated with mild dizziness and fatique days ago. UA compatible with UTI. Assessment and plan: Atelectasis Bacteremia Fever Pneumonia LA 0.9, CRP 28.5-->39.1-->35.5-->33.1 Blood culture 1/4 bottles positive for MSSA - durant sensitive CXR: 1. Density within medial left upper lung, difficult to exclude minimal area of pneumonia. 2. Slight density within the left lung base most likely due to atelectasis. 1L NS bolus was given in the ER Antibiotics - Discontinue vancomycin and continue Rocephin--> on discharge switch to Vantin 200 mg twice daily for at least another 7 days and possibly 4 to 6 weeks. IS/Acapella Discuss case with Dr. Aragon's office as patient has incision from TKA Repeat blood cultures negative for 1 day UTI UA compatible with UTI Creatinine 0.9-->0.7-->0.8 Ceftriaxone 2 gm iv daily Urine cultures growing durant sensitive E. Coli HTN Continue home meds amlodipine 5mg daily, losartan 50mg daily, HCTZ 25mg daily Hydralazine prn Depression/anxiety continue home sertraline. Ativan 0.5mg iv Q6hrs prn Anemia Iron deficiency Hgb 9.9-->10.0-->9.3-->9.7 No signs of active bleeding Likely worsened by IV fluid dilution Monitor CBC Iron panel shows iron deficiency Iron infusion given 06/12/2020 S/P left TKA No current concerns Incision site looks good Monitor Follow-up with primary care provider and with Dr. Aragon to determine length of antibiotics. Hypokalemia, Resolved Hypokalemia, Resolved Early sepsis, Resolved Leukocytosis, Resolved - Patient Instructions Diet: Usual Diet as Tolerated Activity: As Tolerated Driving: Do Not Drive Showering/Bathing: May Shower Notify Provider of: Fever, Increased Pain Other/Special Instructions: You had a urinary tract infection and a blood infection with 2 different bacteria. The antibiotic you are being sent home on should cover both bacteria. Please follow-up with Dr. Aragon before you run out of your antibiotics so he can determine if you need to be on a longer course secondary to your total knee replacement. This is very important. Also follow- up with your primary care provider next week. - Discharge Plan *PRESCRIPTION DRUG MONITORING PROGRAM REVIEWED*: No *COPY OF PRESCRIPTION DRUG MONITORING REPORT IN PATIENT ILDA: No Prescriptions/Med Rec: Cefpodoxime [Vantin] 200 mg PO BID #14 tab Home Medications: Home Meds Ascorbate Calcium [Vitamin C] 500 mg PO DAILY 05/07/17 [History] Sertraline [Zoloft] 75 mg PO DAILY 05/07/17 [History] amLODIPine [Norvasc] 5 mg PO DAILY 05/07/17 [History] Rosuvastatin [Crestor] 10 mg PO BEDTIME 03/16/18 [History] hydroCHLOROthiazide [Hydrochlorothiazide] 25 mg PO DAILY 03/16/18 [History] Cholecalciferol (Vitamin D3) [Vitamin D3] 5,000 unit PO DAILY 05/18/20 [History] Losartan [Cozaar] 50 mg PO DAILY 05/18/20 [History] Potassium Chloride 20 meq PO DAILY 05/18/20 [History] tiZANidine HCl [Zanaflex] 4 mg PO BEDTIME 05/18/20 [History] Aspirin [Aspirin EC] 325 mg PO BID #84 tab 05/19/20 [Rx] Cefpodoxime [Vantin] 200 mg PO BID #14 tab 06/14/20 [Rx] Oxygen Therapy Mode: Room Air Patient Handouts: Sepsis, Self Care, Adult Forms: ED Department Discharge Referrals: Elsy Mayfield MD [Primary Care Provider] - 06/19/20 2:00 pm (Hospital follow-up appointment.) - Discharge Summary/Plan Comment DC Time >30 min.: Yes - General Info Date of Service: 06/14/20 Admission Dx/Problem (Free Text: Admission Diagnosis/Problem Admission Diagnosis/Problem Urinary tract infection Subjective Update: Patient states she is feeling better today. I spoke with infectious disease from [place] in [place] about her blood cultures. Trial of oral Vantin 200 mg twice daily for both her UTI and bacteremia. Source may be from skin incision but likely it was a transient bacteremia. Functional Status: Reports: Pain Controlled - Review of Systems General: Reports: No Symptoms. Denies: Fever HEENT: Reports: No Symptoms Pulmonary: Reports: No Symptoms Cardiovascular: Reports: No Symptoms Gastrointestinal: Reports: No Symptoms Musculoskeletal: Reports: No Symptoms Skin: Reports: No Symptoms Psychiatric: Reports: No Symptoms - Patient Data Vitals - Most Recent: Last Vital Signs Temp 98.8 F 06/14/20 11:34 Pulse 79 06/14/20 11:34 Resp 16 06/14/20 11:34 BP 118/71 06/14/20 11:34 Pulse Ox 91 L 06/14/20 11:34 Weight - Most Recent: 131 lb I&O - Last 24 hours: Intake & Output 06/13/20 06/14/20 06/14/20 22:59 06:59 14:59 Intake Total 920 600 120 Output Total 500 800 Balance 420 -200 120 Lab Results - Last 24 hrs: Laboratory Results - last 24 hr 06/14/20 Range/Units 04:55 Magnesium 2.0 (1.8-2.4) mg/dl C-Reactive Protein 31.9 H* (<1.0) mg/dL ELMO Results - Last 24 hrs: Microbiology 06/09/20 16:38 Aerobic Blood Culture - Preliminary Blood - Venous NO GROWTH AFTER 4 DAYS Anaerobic Blood Culture - Preliminary Staphylococcus Aureus 06/12/20 06:47 Aerobic Blood Culture - Preliminary Blood - Venous - Lab Draw NO GROWTH AFTER 2 DAYS Anaerobic Blood Culture - Preliminary NO GROWTH AFTER 2 DAYS 06/12/20 06:36 Aerobic Blood Culture - Preliminary Blood - Venous NO GROWTH AFTER 2 DAYS Anaerobic Blood Culture - Preliminary NO GROWTH AFTER 2 DAYS 06/09/20 16:30 Aerobic Blood Culture - Preliminary Blood - Venous - Lab Draw NO GROWTH AFTER 4 DAYS Anaerobic Blood Culture - Preliminary NO GROWTH AFTER 4 DAYS Med Orders - Current: Current Medications Acetaminophen (Acetaminophen 650 Mg Supp) 650 mg RECTAL Q4H PRN PRN Reason: Pain (mild 1-3) Last Admin: 06/10/20 16:40 Dose: 650 mg Documented by: Acetaminophen (Acetaminophen 325 Mg Tab) 650 mg PO Q4H PRN PRN Reason: Pain/Fever Last Admin: 06/12/20 20:52 Dose: 650 mg Documented by: Albuterol/Ipratropium (Albuterol/Ipratropium 3.0-0.5 Mg/3 Ml Neb Soln) 3 ml NEB Q4H PRN PRN Reason: Shortness Of Breath/wheezing Amlodipine Besylate (Amlodipine 5 Mg Tab) 5 mg PO DAILY [facility] Last Admin: 06/14/20 08:41 Dose: 5 mg Documented by: Aspirin (Aspirin 325 Mg Tab.Ec) 325 mg PO BID [facility] Last Admin: 06/14/20 08:41 Dose: 325 mg Documented by: Cholecalciferol (Cholecalciferol (Vitamin D3) 5,000 Unit Cap) 5,000 unit PO DAILY [facility] Last Admin: 06/14/20 08:41 Dose: 5,000 unit Documented by: Enoxaparin Sodium (Enoxaparin 40 Mg/0.4 Ml Syringe) 40 mg SUBCUT DAILY [facility] Last Admin: 06/14/20 08:40 Dose: 40 mg Documented by: Hydralazine HCl (Hydralazine 20 Mg/Ml Sdv) 10 mg IVPUSH Q4H PRN PRN Reason: Hypertension Hydrochlorothiazide (Hydrochlorothiazide 25 Mg Tab) 25 mg PO DAILY [facility] Last Admin: 06/14/20 08:41 Dose: 25 mg Documented by: Promethazine HCl 12.5 mg/ (Sodium Chloride) 50.5 mls @ 100 mls/hr IV Q6H PRN PRN Reason: Nausea/Vomiting Ceftriaxone Sodium 2 gm/ (Sodium Chloride) 100 mls @ 200 mls/hr IV Q24H [facility] Last Admin: 06/13/20 17:22 Dose: 200 mls/hr Documented by: Losartan Potassium (Losartan 50 Mg Tab) 50 mg PO DAILY [facility] Last Admin: 06/14/20 08:41 Dose: 50 mg Documented by: Ondansetron HCl (Ondansetron 4 Mg/2 Ml Sdv) 4 mg IVPUSH Q6H PRN PRN Reason: Nausea/Vomiting Last Admin: 06/13/20 13:16 Dose: 4 mg Documented by: Rosuvastatin Calcium (Rosuvastatin 10 Mg Tab) 10 mg PO BEDTIME [facility] Last Admin: 06/13/20 20:53 Dose: 10 mg Documented by: Sertraline HCl (Sertraline 50 Mg Tab) 75 mg PO DAILY [facility] Last Admin: 06/14/20 08:40 Dose: 75 mg Documented by: Sodium Chloride (Sodium Chloride 0.9% 10 Ml Syringe) 10 ml FLUSH ASDIRECTED PRN PRN Reason: Keep Vein Open Last Admin: 06/09/20 16:42 Dose: 10 ml Documented by: Tizanidine HCl (Tizanidine 4 Mg Tab) 4 mg PO BEDTIME [facility] Last Admin: 06/13/20 20:53 Dose: 4 mg Documented by: Tramadol HCl (Tramadol 50 Mg Tab) 50 mg PO Q6H PRN PRN Reason: Pain (moderate 4-6) Last Admin: 06/11/20 06:50 Dose: 50 mg Documented by: Discontinued Medications Acetaminophen (Acetaminophen 325 Mg Tab) 975 mg PO NOW ONE Stop: 06/09/20 16:09 Last Admin: 06/09/20 16:42 Dose: 975 mg Documented by: Furosemide (Furosemide 20 Mg/2 Ml Vial) 20 mg IVPUSH ONETIME ONE Stop: 06/12/20 15:05 Last Admin: 06/12/20 15:57 Dose: 20 mg Documented by: Ceftriaxone Sodium 2 gm/ (Sodium Chloride) 100 mls @ 200 mls/hr IV STAT ONE Stop: 06/09/20 16:34 Last Admin: 06/09/20 16:22 Dose: Not Given Documented by: Sodium Chloride (Normal Saline) 1,000 mls @ 1,000 mls/hr IV BOLUS ONE; Protocol Stop: 06/09/20 17:04 Last Admin: 06/09/20 16:42 Dose: 1,000 mls/hr Documented by: Ceftriaxone Sodium 2 gm/ (Sodium Chloride) 100 mls @ 200 mls/hr IV ONETIME ONE Stop: 06/09/20 16:51 Last Admin: 06/09/20 16:42 Dose: 200 mls/hr Documented by: Lactated Ringer's (Ringers, Lactated) 1,000 mls @ 65 mls/hr IV ASDIRECTED [facility] Last Admin: 06/11/20 23:12 Dose: 65 mls/hr Documented by: Ceftriaxone Sodium 1 gm/ (Sodium Chloride) 100 mls @ 200 mls/hr IV Q24H [facility] Last Admin: 06/10/20 18:15 Dose: 200 mls/hr Documented by: Magnesium Sulfate (Magnesium Sulfate In Water 2 Gm/50 Ml) 2 gm in 50 mls @ 25 mls/hr IV ONETIME ONE Stop: 06/10/20 14:58 Last Admin: 06/10/20 13:59 Dose: 25 mls/hr Documented by: Ceftriaxone Sodium 1 gm/ (Sodium Chloride) 100 mls @ 200 mls/hr IV ONETIME ONE Stop: 06/10/20 21:29 Last Admin: 06/10/20 21:36 Dose: 200 mls/hr Documented by: Vancomycin HCl 1 gm/Vancomycin HCl 250 mg/ Sodium Chloride 250 mls @ 166.667 mls/hr IV ONETIME ONE Stop: 06/11/20 10:29 Last Admin: 06/11/20 09:51 Dose: 166.667 mls/hr Documented by: Vancomycin HCl 1 gm/ Sodium (Chloride) 250 mls @ 250 mls/hr IV Q12H [facility] Last Admin: 06/12/20 10:02 Dose: 250 mls/hr Documented by: Magnesium Sulfate (Magnesium Sulfate In Water 2 Gm/50 Ml) 2 gm in 50 mls @ 25 mls/hr IV ONETIME ONE Stop: 06/12/20 11:59 Last Admin: 06/12/20 10:05 Dose: 25 mls/hr Documented by: Ferric Sodium Gluconate Complex 250 mg/ Sodium Chloride 120 mls @ 60 mls/hr IV ONETIME ONE Stop: 06/12/20 12:40 Last Admin: 06/12/20 11:54 Dose: 60 mls/hr Documented by: Morphine Sulfate (Morphine 2 Mg/Ml Syringe) 2 mg IVPUSH Q4H PRN PRN Reason: Pain (severe 7-10) Stop: 06/10/20 19:49 Potassium Chloride (Potassium Chloride 20 Meq Tab.Er) 40 meq PO BID [facility] Stop: 06/11/20 09:01 Last Admin: 06/11/20 09:50 Dose: 40 meq Documented by: Vancomycin HCl (Pharmacy To Dose - Vancomycin) 1 dose .XX ASDIRECTED PRN PRN Reason: RX TO DOSE VANCO - Exam Quality Assessment: Denies: Supplemental Oxygen General: Reports: Alert, Oriented HEENT: Reports: Pupils Equal, Mucous Membr. Moist/[place] Neck: Reports: Supple Lungs: Reports: Clear to Auscultation, Normal Respiratory Effort Cardiovascular: Reports: Regular Rate, Regular Rhythm GI/Abdominal Exam: Normal Bowel Sounds, Soft, Non-Tender, No Organomegaly, No Distention, No Abnormal Bruit Extremities: Normal Inspection, Normal Range of Motion, Non-Tender, No Pedal Edema, Normal Capillary Refill Skin: Reports: Warm, Dry, Intact Wound/Incisions: Reports: Healing Well. Denies: No Drainage, Erythema Neurological: Reports: No New Focal Deficit Psy/Mental Status: Reports: Alert, Normal Affect, Normal Mood
== END 2020-06-14 13:00 | disposition home or self-care (01) | DRG 871 ==
LOC: JD.ED 15:10 → JD.MS 19:29
PROVIDERS: ADMIT Internal Medicine; ATTEND Internal Medicine
DX: A41.9 Sepsis, unspecified organism (principal); N39.0 Urinary tract infection, site not specified; A41.51 Sepsis due to Escherichia coli [E. coli]; J18.9 Pneumonia, unspecified organism; K44.9 Diaphragmatic hernia without obstruction or gangrene; J98.11 Atelectasis; N30.01 Acute cystitis with hematuria; F32.9 Major depressive disorder, single episode, unspecified; Z20.822 Contact with and (suspected) exposure to COVID-19; R42 Dizziness and giddiness; Z96.659 Presence of unspecified artificial knee joint; A41.01 Sepsis due to Methicillin susceptible Staphylococcus aureus; I10 Essential (primary) hypertension; F41.9 Anxiety disorder, unspecified; D64.9 Anemia, unspecified; Z96.652 Presence of left artificial knee joint; E87.6 Hypokalemia; E61.1 Iron deficiency; H54.7 Unspecified visual loss; E78.00 Pure hypercholesterolemia, unspecified; M19.90 Unspecified osteoarthritis, unspecified site; M79.7 Fibromyalgia; R35.0 Frequency of micturition; E83.42 Hypomagnesemia; F32.89 Other specified depressive episodes; Z79.82 Long term (current) use of aspirin; Z79.899 Other long term (current) drug therapy; Z90.710 Acquired absence of both cervix and uterus
CPT/HCPCS: 36415; 71045; 80053; 81001; 83605; 83735; 84100; 84484; 85007; 85027; 85610; 86140; 87040 ×2; 87077; 87086; 87088; 87186 ×2; 96365; 99285; A9270; J0696; J7030; U0002; 71046; 71046-26; 71250; 71250-26; 83540; 83880; 84466; 85025; 87641; 93005; 93306; 94667; 97110-GP; 97116-GP; 97161-GP; 97165-GO; 99222; 99233; 99239; J1650; J1940; J2405; J2916; J3370; J3475; J7050; J7120

== ENCOUNTER 2020-06-15 20:09 | Emergency (ER) | payer MEDICARE, MEDICAID ==
--- NOTE | 2020-06-15 21:08 | EDM.PDOC ---
ED HPI GENERAL MEDICAL PROBLEM - General Chief Complaint: General Stated Complaint: chills cough Time Seen by Provider: 06/15/20 20:13 Source of Information: Reports: Patient History Limitations: Reports: No Limitations - History of Present Illness INITIAL COMMENTS - FREE TEXT/NARRATIVE: 80-year-old female presents to the emergency department this evening. She was just discharged from the hospital yesterday and was unable to fill her prescriptions. She have a chief complaint she is just requesting to have her medications. - Related Data Allergies Allergy/AdvReac Type Severity Reaction Status Date / Time No Known Allergies Allergy Verified 06/15/20 20:55 Home Meds: Home Meds Ascorbate Calcium [Vitamin C] 500 mg PO DAILY 05/07/17 [History] Sertraline [Zoloft] 75 mg PO DAILY 05/07/17 [History] amLODIPine [Norvasc] 5 mg PO DAILY 05/07/17 [History] Rosuvastatin [Crestor] 10 mg PO BEDTIME 03/16/18 [History] hydroCHLOROthiazide [Hydrochlorothiazide] 25 mg PO DAILY 03/16/18 [History] Cholecalciferol (Vitamin D3) [Vitamin D3] 5,000 unit PO DAILY 05/18/20 [History] Losartan [Cozaar] 50 mg PO DAILY 05/18/20 [History] Potassium Chloride 20 meq PO DAILY 05/18/20 [History] tiZANidine HCl [Zanaflex] 4 mg PO BEDTIME 05/18/20 [History] Aspirin [Aspirin EC] 325 mg PO BID #84 tab 05/19/20 [Rx] Cefpodoxime [Vantin] 200 mg PO BID #14 tab 06/14/20 [Rx] Past Medical History HEENT History: Reports: Hard of Hearing, Impaired Vision Cardiovascular History: Reports: High Cholesterol, Hypertension Other Cardiovascular History: bradycardia Respiratory History: Reports: Other (See Below) Other Respiratory History: shortness of breath with exertion Gastrointestinal History: Reports: Colon Polyp, Hiatal Hernia Genitourinary History: Reports: Other (See Below) Other Genitourinary History: cystocele, rectocele, prolapse, bladder dysfunction, urinary frequency [employer] HELPER History: Reports: None Musculoskeletal History: Reports: Arthritis, Fibromyalgia, Other (See Below) Other Musculoskeletal History: left knee pain Neurological History: Reports: None Psychiatric History: Reports: Anxiety, Depression Endocrine/Metabolic History: Reports: None Hematologic History: Reports: None Immunologic History: Reports: None Oncologic (Cancer) History: Reports: None Dermatologic History: Reports: None - Infectious Disease History Infectious Disease History: Reports: MRSA - Past Surgical History Head Surgeries/Procedures: Reports: None HEENT Surgical History: Reports: Tonsillectomy Cardiovascular Surgical History: Reports: None Respiratory Surgical History: Reports: None GI Surgical History: Reports: Colonoscopy Female Surgical History: Reports: Breast Biopsy, Hysterectomy, Other (See Below) Other Female Surgeries/Procedures: bladder repair Endocrine Surgical History: Reports: None Neurological Surgical History: Reports: None Musculoskeletal Surgical History: Reports: Knee Replacement Oncologic Surgical History: Reports: None Dermatological Surgical History: Reports: None Social & Family History - Family History Family Medical History: No Pertinent Family History - Tobacco Use Tobacco Use Status *Q: Never Tobacco User Second Hand Smoke Exposure: No - Caffeine Use Caffeine Use: Reports: None - Recreational Drug Use Recreational Drug Use: No - Living Situation & Occupation Living situation: Reports: Occupation: Employed ED ROS GENERAL - Review of Systems Review Of Systems: Comprehensive ROS is negative, except as noted in HPI. ED EXAM, GENERAL - Physical Exam Exam: See Below Exam Limited By: No Limitations General Appearance: Alert, WD/WN, No Apparent Distress Ears: Normal External Exam, Hearing Grossly Normal Nose: Normal Inspection Throat/Mouth: Normal Voice, No Airway Compromise Head: Atraumatic, Normocephalic Neck: Normal Inspection Respiratory/Chest: No Respiratory Distress, No Accessory Muscle Use GI/Abdominal: No Distention (Female) Exam: Deferred Rectal (Female) Exam: Deferred Back Exam: Normal Inspection Extremities: Normal Inspection Neurological: Alert, Oriented, Normal Cognition Psychiatric: Normal Affect, Normal Mood Course - Vital Signs Text/Narrative:: I pulled up the patient's discharge note from yesterday and she was to start taking Vantin 200 mg twice daily for 14 days. [facility] I will give her 1 dose now in the emergency department and an extra dose to take home and have for the morning. Patient states she then will go to her pharmacy and moss picker her prescribed medications. Last Recorded V/S: Last Vital Signs Temp 97.0 F 06/15/20 20:53 Pulse 73 06/15/20 20:53 Resp 20 06/15/20 20:53 BP 126/70 06/15/20 20:53 Pulse Ox 100 06/15/20 20:53 - Orders/Labs/Meds Meds: Medications Discontinued Medications Generic Name Dose Route Start Last Admin Trade Name Radha PRN Reason Stop Dose Admin Cefpodoxime Proxetil 200 mg 06/15/20 21:01 Cefpodoxime 200 Mg Tab PO 06/15/20 21:02 ONETIME ONE Cefpodoxime Proxetil 200 mg 06/15/20 21:02 Cefpodoxime 200 Mg Tab PO 06/15/20 21:03 ONETIME ONE Departure - Departure Time of Disposition: 21:07 Disposition: Home, Self-Care 01 Condition: Good Clinical Impression: Medication administered - Discharge Information Referrals: Elsy Mayfield MD [Primary Care Provider] - Forms: ED Department Discharge Additional Instructions: You were seen in the emergency department today as you were unable to fill your prescriptions after being discharged from the hospital yesterday. You will were given 1 tab of Vantin 200 mg that was taken in the emergency department. You were also sent home with 1 tab of Vantin. You can take this in the morning. And then be sure to go to the pharmacy to moss picker your prescription for this medication. Sepsis Event Note (ED) - Evaluation Sepsis Screening Result: No Definite Risk - Focused Exam Vital Signs: Vital Signs Temp Pulse Resp BP Pulse Ox 06/15/20 20:53 97.0 F 73 20 126/70 100
[2020-06-15] MEDS ORDERED: Cefdinir 300 MG Cap PO ONE ×2 (21:26→21:27)
== END 2020-06-15 21:42 | disposition home or self-care (01) ==
LOC: JD.ED 20:09
DX: Z76.0 Encounter for issue of repeat prescription (principal); E78.00 Pure hypercholesterolemia, unspecified; I10 Essential (primary) hypertension; Z79.899 Other long term (current) drug therapy; Z79.82 Long term (current) use of aspirin
CPT/HCPCS: 99281; A9270; 99283

== ENCOUNTER 2020-06-18 09:14 | Emergency (ER) | payer MEDICARE, MEDICAID ==
--- NOTE | 2020-06-18 09:43 | EDM.PDOC ---
ED HPI GENERAL MEDICAL PROBLEM - General Chief Complaint: General Stated Complaint: CHILLS/COUGH Time Seen by Provider: 06/18/20 09:34 Source of Information: Reports: Patient History Limitations: Reports: No Limitations - History of Present Illness INITIAL COMMENTS - FREE TEXT/NARRATIVE: 80-year-old female presents to the ED once again due to feeling ill. Patient was admitted to the hospital June 09 with a significant urinary tract infection growing out E. coli. Chest x-ray done at that time also suggest a possible left upper lobe infiltrate compatible with possible pneumonia. Patient was admitted to hospital from June 09 until June 14. Patient was on IV Rocephin while in hospital. She was discharged on Tuesday, June 14. She did not get her prescribed Vantin tablet to be taken twice daily for a week until Tuesday when the drug stores reopen. She had a dose of Omnicef through the ER on Tuesday 300 mg and I believe a tablet was sent home with her for early Tuesday morning use. Patient had left total knee replacement on May [address] Aragon-orthopedic surgeon. Patient denies any dysuria urgency or frequency but she did have many symptoms when she was admitted. She presents now with a paroxysmal intermittent nonproductive cough. Diffuse intermittent left lower quadrant abdominal cramping pain and diarrhea x2 or 3 times daily without blood. She did have diarrhea earlier this morning. She is regaining her appetite but it is not back to normal. Still feels weak lightheaded and dizzy at times. COVID-19 screen was negative last Tuesday. She is also completed both doses of the COVID-19 vaccination in early May. Denies any pleuritic chest pain or central chest discomfort. Onset: Gradual Onset Date: 06/16/20 (Started to feel weaker and ill again over the last 2 days.) Duration: Day(s):, Getting Worse Location: Reports: Chest (Paroxysmal minimally productive cough.), Abdomen (Left lower quadrant abdominal discomfort with diarrhea. Of note the patient has been on IV antibiotics for 5 days and oral antibiotics since discharge from hospital June 14. I believe Vantin 200 mg twice daily) Quality: Reports: Other (Treatment) Severity: Moderate (left lower quadrant abdominal cramping pain) Improves with: Reports: None Worsens with: Reports: None Context: Reports: Other (Recent requirement for hospital admission due to urinary tract infection growing out E. coli in the urine. Sensitive to all antibiotics.). Denies: Activity, Exercise, Lifting, Sick Contact, Trauma Associated Symptoms: Reports: Cough, cough w sputum, Fever/Chills, Loss of Appetite, Malaise, Nausea/Vomiting, Weakness, Other (Intermittent paroxysmal cough. Diarrhea 2-3 times daily for the last 3 days). 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 She has been taking her potassium supplements since discharge from the hospital) Lower Abdomen Pain Score (Numeric/FACES): 2 - Related Data Allergies Allergy/AdvReac Type Severity Reaction Status Date / Time No Known Allergies Allergy Verified 06/18/20 09:29 Home Meds: Home Meds Ascorbate Calcium [Vitamin C] 500 mg PO BEDTIME 05/07/17 [History] Sertraline [Zoloft] 75 mg PO DAILY 05/07/17 [History] amLODIPine [Norvasc] 5 mg PO DAILY 05/07/17 [History] Rosuvastatin [Crestor] 10 mg PO BEDTIME 03/16/18 [History] hydroCHLOROthiazide [Hydrochlorothiazide] 25 mg PO DAILY 03/16/18 [History] Cholecalciferol (Vitamin D3) [Vitamin D3] 5,000 unit PO DAILY 05/18/20 [History] Losartan [Cozaar] 50 mg PO DAILY 05/18/20 [History] Potassium Chloride 20 meq PO DAILY 05/18/20 [History] tiZANidine HCl [Zanaflex] 4 mg PO BEDTIME 05/18/20 [History] Aspirin [Aspirin EC] 325 mg PO BID #84 tab 05/19/20 [Rx] Cefpodoxime [Vantin] 200 mg PO BID #14 tab 06/14/20 [Rx] Hydrocodone/Chlorphen P-Stirex [Hydrocodone-Chlorphen ER Susp] 3 ml PO Q12H PRN #40 ml 06/18/20 [Rx] Omeprazole Magnesium [Prilosec Otc] 20 mg PO DAILY #30 tablet. 06/18/20 [Rx] Past Medical History HEENT History: Reports: Hard of Hearing, Impaired Vision Cardiovascular History: Reports: High Cholesterol, Hypertension Other Cardiovascular History: bradycardia Respiratory History: Reports: Other (See Below) Other Respiratory History: shortness of breath with exertion Gastrointestinal History: Reports: Colon Polyp, Hiatal Hernia Genitourinary History: Reports: Other (See Below) Other Genitourinary History: cystocele, rectocele, prolapse, bladder dysfunction, urinary frequency ROUTE MANAGER History: Reports: None Musculoskeletal History: Reports: Arthritis, Fibromyalgia, Other (See Below) Other Musculoskeletal History: left knee pain Neurological History: Reports: None Psychiatric History: Reports: Anxiety, Depression Endocrine/Metabolic History: Reports: None Hematologic History: Reports: None Immunologic History: Reports: None Oncologic (Cancer) History: Reports: None Dermatologic History: Reports: None - Infectious Disease History Infectious Disease History: Reports: MRSA - Past Surgical History Head Surgeries/Procedures: Reports: None HEENT Surgical History: Reports: Tonsillectomy Cardiovascular Surgical History: Reports: None Respiratory Surgical History: Reports: None GI Surgical History: Reports: Colonoscopy Female Surgical History: Reports: Breast Biopsy, Hysterectomy, Other (See Below) Other Female Surgeries/Procedures: bladder repair Endocrine Surgical History: Reports: None Neurological Surgical History: Reports: None Musculoskeletal Surgical History: Reports: Knee Replacement Oncologic Surgical History: Reports: None Dermatological Surgical History: Reports: None Social & Family History - Family History Family Medical History: No Pertinent Family History - Tobacco Use Tobacco Use Status *Q: Never Tobacco User Second Hand Smoke Exposure: No - Caffeine Use Caffeine Use: Reports: None - Recreational Drug Use Recreational Drug Use: No - Living Situation & Occupation Living situation: Reports: Occupation: Employed ED ROS GENERAL - Review of Systems Review Of Systems: See Below Constitutional: Reports: Chills, Malaise, Weakness, Fatigue, Decreased Appetite, Weight Loss. Denies: Fever HEENT: Reports: Glasses Respiratory: Reports: Cough, Sputum. Denies: Shortness of Breath, Wheezing, Pleuritic Chest Pain, Hemoptysis (Occasional sputum production. She has not checked the color.) Cardiovascular: Reports: Blood Pressure Problem, Lightheadedness. Denies: Chest Pain, Claudication, Dyspnea on Exertion, Edema (Once in a while.), Orthopnea, Palpitations Endocrine: Reports: Fatigue GI/Abdominal: Reports: Abdominal Pain (Merrily left lower quadrant abdominal discomfort.), Diarrhea (Usually 2-3 loose stools per day. Had one loose stool this morning without blood.), Nausea (Intermittent.). Denies: Anorexia, Black Stool, Bloody Stool, Difficulty Swallowing, Distension, Flatus, Hematemesis, Hematochezia, Melena, Stool Incontinence, Vomiting : Reports: Other (He is being treated for urinary tract infection at this time. It is believed that she developed a significant urinary tract infection involving both kidneys with pyelonephritis requiring hospitalization June 09 until June 14.). Denies: Dysuria, Frequency, Urgency Musculoskeletal: Reports: Back Pain (Recovering from left total knee surgery she states is slowly getting better. Back pain is made worse by coughing.), Joint Pain Skin: Reports: No Symptoms Neurological: Reports: Dizziness, Weakness. Denies: Confusion, Headache, Numbness (Patient on dizziness.), Syncope, Tingling, Tremors, Trouble Speaking, Difficulty Walking Psychiatric: Reports: No Symptoms Hematologic/Lymphatic: Reports: No Symptoms, Other (In hospital she did have serum iron, total iron-binding capacity and ferritin checked all of which read suggested iron deficiency anemia.) Immunologic: Reports: No Symptoms ED EXAM, GENERAL - Physical Exam Exam: See Below Exam Limited By: No Limitations General Appearance: Alert, WD/WN, No Apparent Distress, Other (Temperature is 36.1 degrees this does not feel warm to palpation. Heart rate is 80 and sinus respiratory was 12 with O2 sats of 97% on room air BP 127/89.) Eye Exam: Bilateral Eye: Normal Inspection (No scleral icterus. No significant blepharal pallor.), PERRL Throat/Mouth: Other (Tongue is moist.) Head: Atraumatic, Normocephalic Neck: Normal Inspection, Supple, Non-Tender, Full Range of Motion. No: Lymphadenopathy (L), Lymphadenopathy (R) Respiratory/Chest: No Respiratory Distress, Lungs Clear, Normal Breath Sounds, No Accessory Muscle Use Cardiovascular: Normal Peripheral Pulses, Regular Rate, Rhythm, No Edema, No Gallop, No Murmur, No Rub Peripheral Pulses: 2+: Carotid (L), Carotid (R), Posterior Tibial (L), Posterior Tibial (R), Dorsalis Pedis (L), Dorsalis Pedis (R) GI/Abdominal: Normal Bowel Sounds, Soft, No Organomegaly, No Abnormal Bruit, Pelvis Stable, Tender (Identified to be tender in the distribution of her gallbladder with a positive Burciaga sign. Associated mild tenderness on palpation of the left lower quadrant along the distribution of the sigmoid colon. She is again complaining of diarrhea 2-3 times daily for the last 3 to 4 days.) (Female) Exam: Other (Patient by history is a known cystocele and rectocele.) Back Exam: Normal Inspection. No: CVA Tenderness (L), CVA Tenderness (R) Extremities: Normal Range of Motion, Non-Tender, No Pedal Edema, Other (Patient has had recent left total knee surgery. The wound appears to be healing well. The knee is still warm to palpation as anticipated postoperatively.) Neurological: Alert, Oriented, CN II-XII Intact, Normal Cognition, No Motor/Sen donnell Deficits Psychiatric: Normal Affect, Normal Mood Skin Exam: Warm, Dry, Intact, Normal Color, No Rash #1 Interpretation EKG Date: 06/18/20 Time: 10:26 Rhythm: NSR Rate (Beats/Min): 70 [place]: LAD-Left [place] Deviation (Minimal left axis deviation of -3 degrees) P-Wave: Present QRS: Other (There are Q waves in V1 and near Q wave V2 suggesting old anteroseptal myocardial infarction. Initial poor R wave progression. There are Q waves also in leads III and aVF combined with old inferior wall myocardial infarction. Mildly decreased voltage in the precordial leads. Tall R wave in lead) ST-T: Other (T wave flattening lead III nonspecific finding) QT: Normal EKG Interpretation Comments: Abnormal ECG Course - Vital Signs Last Recorded V/S: Last Vital Signs Temp 36.9 C 06/18/20 15:30 Pulse 74 06/18/20 15:30 Resp 18 06/18/20 15:30 BP 114/78 06/18/20 15:30 Pulse Ox 97 06/18/20 15:30 - Orders/Labs/Meds Orders: Active Orders 24 hr Category Date Time Status C DIFFICILE PCR W/REFLEX [MOLEC] Stat Lab 06/18/20 09:45 Ordered CULTURE BLOOD [BC] Stat Lab 06/18/20 10:05 Received CULTURE BLOOD [BC] Stat Lab 06/18/20 10:16 Received Blood Culture x2 Reflex Set [OM.PC] Stat Oth 06/18/20 09:45 Ordered Labs: Laboratory Tests 04/07/21 04/07/21 04/07/21 Range/Units 09:05 09:05 09:05 WBC 10.15 H (3.98-10.04) K/mm3 RBC 3.34 L (3.98-5.22) M/mm3 Hgb 10.8 L (11.2-15.7) gm/dl Hct 35.3 (34.1-44.9) % MCV 105.7 H (79.4-94.8) fl MCH 32.3 H (25.6-32.2) pg MCHC 30.6 L (32.2-35.5) g/dl RDW Std Deviation 51.9 H (36.4-46.3) fL Plt Count 810 H D (182-369) K/mm3 MPV 8.6 L (9.4-12.3) fl Neut % (Auto) 73.5 H (34.0-71.1) % Lymph % (Auto) 16.1 L (19.3-51.7) % [place] % (Auto) 7.2 (4.7-12.5) % Eos % (Auto) 1.4 (0.7-5.8) Baso % (Auto) 0.6 (0.1-1.2) % Neut # (Auto) 7.47 H (1.56-6.13) K/mm3 Lymph # (Auto) 1.63 (1.18-3.74) K/mm3 [place] # (Auto) 0.73 H (0.24-0.36) K/mm3 Eos # (Auto) 0.14 (0.04-0.36) K/mm3 Baso # (Auto) 0.06 (0.01-0.08) K/mm3 Manual Slide Review Abnormal smear PT 11.0 (9.7-12.0) SECONDS INR 1.03 APTT 23.2 (21.7-31.4) SECONDS Sodium 143 (136-145) mEq/L Potassium 3.4 L (3.5-5.1) mEq/L Chloride 104 (98-107) mEq/L Carbon Dioxide 25 (21-32) mEq/L Anion Gap 17.4 H (5-15) BUN 19 H (7-18) mg/dL Creatinine 1.1 H (0.55-1.02) mg/dL Est Cr Clr Drug Dosing 32.80 mL/min Estimated GFR (MDRD) 48 (>60) mL/min BUN/Creatinine Ratio 17.3 (14-18) Glucose 131 H (83-115) mg/dL Calcium 9.3 (8.5-10.1) mg/dL Magnesium 1.8 (1.8-2.4) mg/dl Total Bilirubin 0.2 (0.2-1.0) mg/dL AST 33 (15-37) U/L ALT 49 (14-59) U/L Alkaline Phosphatase 89 (46-116) U/L Troponin I < 0.017 (0.00-0.056) ng/mL C-Reactive Protein 6.7 H* (<1.0) mg/dL NT-Pro-B Natriuret Pep (0-450) pg/mL Total Protein 7.1 (6.4-8.2) g/dl Albumin 2.7 L (3.4-5.0) g/dl Globulin 4.4 gm/dL Albumin/Globulin Ratio 0.6 L (1-2) Urine Color (Yellow) Urine Appearance (Clear) Urine pH (5.0-8.0) Ur Specific [place] (1.005-1.030) Urine Protein (Negative) Urine Glucose (UA) (Negative) Urine Ketones (Negative) Urine Occult Blood (Negative) Urine Nitrite (Negative) Urine Bilirubin (Negative) Urine Urobilinogen (0.2-1.0) Ur Leukocyte Esterase (Negative) Urine RBC (0-5) /hpf Urine WBC (0-5) /hpf Ur Squamous Epith Cells (0-5) /hpf Urine Bacteria (FEW) /hpf Urine Mucus (FEW) /hpf 06/18/20 06/18/20 Range/Units 09:05 12:35 WBC (3.98-10.04) K/mm3 RBC (3.98-5.22) M/mm3 Hgb (11.2-15.7) gm/dl Hct (34.1-44.9) % MCV (79.4-94.8) fl MCH (25.6-32.2) pg MCHC (32.2-35.5) g/dl RDW Std Deviation (36.4-46.3) fL Plt Count (182-369) K/mm3 MPV (9.4-12.3) fl Neut % (Auto) (34.0-71.1) % Lymph % (Auto) (19.3-51.7) % [place] % (Auto) (4.7-12.5) % Eos % (Auto) (0.7-5.8) Baso % (Auto) (0.1-1.2) % Neut # (Auto) (1.56-6.13) K/mm3 Lymph # (Auto) (1.18-3.74) K/mm3 [place] # (Auto) (0.24-0.36) K/mm3 Eos # (Auto) (0.04-0.36) K/mm3 Baso # (Auto) (0.01-0.08) K/mm3 Manual Slide Review PT (9.7-12.0) SECONDS INR APTT (21.7-31.4) SECONDS Sodium (136-145) mEq/L Potassium (3.5-5.1) mEq/L Chloride (98-107) mEq/L Carbon Dioxide (21-32) mEq/L Anion Gap (5-15) BUN (7-18) mg/dL Creatinine (0.55-1.02) mg/dL Est Cr Clr Drug Dosing mL/min Estimated GFR (MDRD) (>60) mL/min BUN/Creatinine Ratio (14-18) Glucose (83-115) mg/dL Calcium (8.5-10.1) mg/dL Magnesium (1.8-2.4) mg/dl Total Bilirubin (0.2-1.0) mg/dL AST (15-37) U/L ALT (14-59) U/L Alkaline Phosphatase (46-116) U/L Troponin I (0.00-0.056) ng/mL C-Reactive Protein (<1.0) mg/dL NT-Pro-B Natriuret Pep 205 (0-450) pg/mL Total Protein (6.4-8.2) g/dl Albumin (3.4-5.0) g/dl Globulin gm/dL Albumin/Globulin Ratio (1-2) Urine Color Yellow (Yellow) Urine Appearance Clear (Clear) Urine pH 6.0 (5.0-8.0) Ur Specific [place] 1.020 (1.005-1.030) Urine Protein Negative (Negative) Urine Glucose (UA) Negative (Negative) Urine Ketones Negative (Negative) Urine Occult Blood Negative (Negative) Urine Nitrite Negative (Negative) Urine Bilirubin Negative (Negative) Urine Urobilinogen 0.2 (0.2-1.0) Ur Leukocyte Esterase Negative (Negative) Urine RBC 0-5 (0-5) /hpf Urine WBC 0-5 (0-5) /hpf Ur Squamous Epith Cells 0-5 (0-5) /hpf Urine Bacteria Few (FEW) /hpf Urine Mucus Few (FEW) /hpf Meds: Medications Discontinued Medications Generic Name Dose Route Start Last Admin Trade Name Freq PRN Reason Stop Dose Admin Famotidine 20 mg 06/18/20 14:21 06/18/20 14:27 Famotidine 20 Mg Tab PO 06/18/20 14:22 20 mg ONETIME ONE Administration Dextrose/Sodium Chloride 1,000 mls @ 150 mls/hr 06/18/20 09:45 06/18/20 10:08 Dextrose 5%-Normal Saline IV 150 mls/hr ASDIRECTED ALEXANDER Administration Iopamidol 100 ml 06/18/20 12:06 06/18/20 12:12 Iopamidol 612 Mg/Ml 100 Ml Bottle IVPUSH 06/18/20 12:07 100 ml ONETIME ONE Administration Sodium Chloride 10 ml 06/18/20 12:06 06/18/20 12:12 Sodium Chloride 0.9% 10 Ml Syringe FLUSH 06/18/20 12:07 10 ml ONETIME ONE Administration - Radiology Interpretation Free Text/Narrative:: 80-year-old female presents to the ED with a paroxysmal minimally productive cough and diarrhea 2-3 times daily since discharge from the hospital June. Patient was admitted to the hospital on June 09 with urinary tract infection and bilateral pyelonephritis. She was treated in the hospital with IV Rocephin and discharged on Vantin 200 mg twice daily. There was a delay in starting this medication post discharge as she could not get medication filled on June 15. She came back to the ED on the evening of June 15 and received Omnicef 300 mg by mouth and a dose to take home. Diarrhea does not contain any blood. Associated left lower quadrant abdominal cramping pain. She has been trying to regain her appetite did have cereal this morning. Does not report any fever but she did have chills over the last couple of days. She reports increased paroxysmal cough occasionally producing some sputum. Covid negative last Tuesday. Also she has completed both Covid vaccinations in early May. Examination does not show any obvious abnormalities in ear nose and throat or chest. She is tender in the in the right upper quadrant of the abdomen in the distribution of her gallbladder. She is also mildly tender along the distribution of the sigmoid colon left lower quadrant. Plan repeat labs including blood cultures x2. Chest x-ray will be done. She ate breakfast this morning i.e. cereal therefore cyst ultrasound of her gallbladder cannot be done for another 6 hours. Stool will be collected for culture and sensitivity and C. difficile if one becomes available. Due to having only 2-3 loose stools per day it is unlikely that she has developed C. difficile enteritis. - Re-Assessments/Exams Free Text/Narrative Re-Assessment/Exam: 06/18/20 10:33 audible chest x-ray reveals infiltrate left upper lobe of lung with streaking artifact superior to the infiltrate. CT scan of the chest was done on June 12 and did reveal an infiltrate left upper lobe compatible with a pneumonic infiltration. This infiltrate looks worse than it did on chest x-ray done June 12. There is also a small left-sided pleural effusion evident. CT exam suggested infiltrate in the pericardial fat in the right lung base of unclear etiology. Multiple liver cysts were also identified on CT exam. 06/18/20 11:09 White count is slightly elevated at 10.15. The differential reveals 73.5% neutrophils. Hemoglobin slightly low at 10.8 with hematocrit of 35.3. MCV is elevated at 105.7 platelet count is markedly elevated at 810,000. The smear does reveal 2+ macrocytes with thrombocytosis. PT is 11.0 with an INR of 1.03 PTT is 23.2. Sodium is 143 potassium slightly low at 3.4 chloride 104 the bicarb of 25. Anion gap is elevated at 17.4. BUN is 19 with a creatinine of 1.1 and a GFR of 48. Glucose is 131. Calcium is 9.3. Magnesium is 1.8. Liver function normal troponin I is less than 0.017 C-reactive protein is down to 6.7. It was as high as 40 when she was admitted to hospital with urinary tract infection. BNP is 205 with a total protein is 7.1 albumin fraction of 2.7. 06/18/20 11:21 radiologist is over read her chest x-ray and he suggest that the increased density is seen within the left upper chest but this appears smaller than on prior chest x-ray evaluations. Slight atelectasis within the left lung base is seen. Decreased size of left-sided pleural effusion is appreciated as well the right lung remains clear. Heart size was felt to be within normal limits with a tortuous thoracic aorta. 06/18/20 11:36 on reexamination the patient remains tender right upper quadrant of the abdomen with a positive Burciaga sign. She ate at between 0 800 and 0830 hrs. this morning making ultrasound examination likely to be useless. She remains mildly tender left lower quadrant of the abdomen with no further diarrhea while in the department. Plan CT of the abdomen with IV contrast only since renal function is preserved. After this we will provide her with a dinner meal in the hopes that this will provoke a diarrhea stool so we can check it for C. difficile enteritis. 06/18/20 12:54 CT of the abdomen and pelvis has been performed with IV contrast only. Numerous cystic areas are appreciated within the central kidneys on both sides. Findings are compatible with multiple parapelvic cysts. Delayed images show nondilated collecting system within both kidneys. Contrast is noted within the ureters on delayed images and shows no dilatation. Contrast is noted on delayed images within the bladder. Kidneys show no focal parenchymal abnormality. There is bilateral diffuse cortical atrophy. Visualized lung bases show nothing acute although there is a minimal left-sided pleural effusion evident on my assessment. She does have a small hiatal hernia. Numerous low- density lesions are seen within the right and left lobes of the liver. Larger abnormalities have Hounsfield unit measurements of cysts and other findings most likely represent numerous other liver cyst. Spleen is normal in size. Adrenal glands show no nodules. Pancreas shows no discrete abnormality. Gallbladder contains no calcified gallstones. Aorta shows atherosclerotic calcification without aneurysmal dilatation. Atherosclerotic calcification is also seen in the iliac vessels. No retroperitoneal adenopathy or mesenteric abnormalities are seen. No pelvic mass or adenopathy is noted. Appendix is seen and appears to be of normal in size. Mild degenerative changes seen within the spine no acute osseous abnormality appreciated. Cystic changes noted within the left femoral head with mild osteophytes compared with degenerative arthritic change. 06/18/20 13:48 Urinalysis reveals no signs of infection with a negative leukocyte site esterase evaluation and no white cells or red cells appreciated on urinalysis 06/18/20 14:22 patient is experiencing increased heartburn since eating her dinner meal. She is currently not taking any medications for GERD. We will give her Pepcid 20 mg p.o. 06/18/20 15:07 Heartburn has improved with time and Pepcid by mouth. Since her labs are all back to normal other than a mildly elevated CRP which 6.5, is markedly improved when compared to when she came into the hospital. I am going to discharge her home. She will be placed on Tussionex cough syrup 2.5 mils every 12 hours as needed for cough relief. Advise Prilosec 20 mg daily for reflux disease which is quite common for her and she has never been on acid suppression medication. She has a follow-up appoint with her doctor Dr. Mayfield tomorrow in clinic. I have advised due to the development of diarrhea it is likely secondary to antibiotic usage and advised taking her Vantin tonight which will complete 10 days of antibiotic therapy. This is an attempt to prevent development of C. difficile enteritis. Departure - Departure Time of Disposition: 15:09 Disposition: Home, Self-Care 01 Condition: Fair Clinical Impression: Cough Pneumonia Qualifiers: Pneumonia type: due to unspecified organism Laterality: left Lung location: upper lobe of lung Qualified Code(s): J18.9 - Pneumonia, unspecified organism GERD (gastroesophageal reflux disease) Qualifiers: Esophagitis presence: esophagitis presence not specified Qualified Code(s): K21.9 - Gastro-esophageal reflux disease without esophagitis - Discharge Information *PRESCRIPTION DRUG MONITORING PROGRAM REVIEWED*: Not Applicable *COPY OF PRESCRIPTION DRUG MONITORING REPORT IN PATIENT ILDA: Not Applicable Prescriptions: Hydrocodone/Chlorphen P-Stirex [Hydrocodone-Chlorphen ER Susp] 3 ml PO Q12H PRN #40 ml PRN Reason: paroxysmal cough. Omeprazole Magnesium [Prilosec Otc] 20 mg PO DAILY #30 tablet. Instructions: Gastroesophageal Reflux Disease, Adult, [id number], Community- Acquired Pneumonia, Adult, [id number] Referrals: Elsy Mayfield MD [Primary Care Provider] - Forms: ED Department Discharge Additional Instructions: Evaluation in the emergency room today in regards to paroxysmal mildly productive cough felt to be related to left upper pneumonia with that was identified upon hospitalization on June 09. You were acutely ill from a urinary tract infection which had gone up to your kidneys and into your bloodstream which we call sepsis. You were treated with 5 days of intravenous antibiotic while in hospital and subsequently have been on oral antibiotics for further 4 days. Due to the development of diarrhea over the last day or 2 it is felt this is secondary to antibiotic usage. It is my opinion that you should stop your Vantin or cefotaxime antibiotic after taking a tablet tonight. Investigations done through the emergency room revealed no evidence of urinary tract infection at this time and pneumonia left upper lung is shrinking and improving. Associated cough related to the pneumonia. May use cough syrup Tussionex 3 mils every 12 hours as needed for relief of cough. As we discussed you have a history of recurrent reflux or heartburn disorder and I would suggest starting Prilosec 20 mg once daily at bedtime to bring this under control. He will likely need this on a daily basis to prevent injury and permanent damage to the lower portion of the esophagus or food pipe from recurrent reflux disease. Follow-up with Dr. Mayfield in clinic tomorrow as planned. Sepsis Event Note (ED) - Evaluation Sepsis Screening Result: No Definite Risk - Focused Exam Vital Signs: Vital Signs Temp Pulse Resp BP Pulse Ox 06/18/20 15:30 36.9 C 74 18 114/78 97 06/18/20 14:08 37.1 C 84 20 117/80 96 06/18/20 09:23 36.1 C 80 12 127/89 97 - My Orders Last 24 Hours: My Active Orders 06/18/20 09:45 C DIFFICILE PCR W/REFLEX [MOLEC] Stat Blood Culture x2 Reflex Set [OM.PC] Stat 06/18/20 10:05 CULTURE BLOOD [BC] Stat 06/18/20 10:16 CULTURE BLOOD [BC] Stat - Assessment/Plan Last 24 Hours: My Active Orders 06/18/20 09:45 C DIFFICILE PCR W/REFLEX [MOLEC] Stat Blood Culture x2 Reflex Set [OM.PC] Stat 06/18/20 10:05 CULTURE BLOOD [BC] Stat 06/18/20 10:16 CULTURE BLOOD [BC] Stat
[2020-06-18] MEDS ORDERED: Dextrose 5%-0.9% NaCl 1,000 ML IV SCH (09:45)
--- NOTE | 2020-06-18 10:52 | CR ---
Chest: Portable view of the chest was obtained. Comparison: Prior chest CT study of 06/12/20 and chest x-ray also performed on 06/12/20. Increased density is seen within the left upper chest. This appears smaller than on prior chest x-ray. Slight atelectasis within the left lung base is seen. Decreased size of left-sided pleural effusion is noted. Right lung is clear. Heart size is within normal limits. Tortuous thoracic aorta is seen. Impression: 1. Decreased size of density within left upper chest when compared to prior chest x-ray and chest CT. 2. Decreased left-sided pleural effusion from prior exams. 3. Mild left basilar atelectasis. Diagnostic code #3
[2020-06-18] MEDS ORDERED: Sodium Chloride 0.9% 10 ML Syringe FLUSH ONE (12:06)
[2020-06-18] MEDS ORDERED: Iopamidol 612 MG/ML 100 ML Bottle IVPUSH ONE (12:06)
--- NOTE | 2020-06-18 12:48 | CT ---
CT abdomen and pelvis Technique: Multiple axial sections were obtained from above the dome of the diaphragm inferiorly through the pubic symphysis. Delayed images were also obtained to the same area. Intravenous contrast was utilized. Reconstructed coronal and sagittal images were obtained. Findings: Numerous cystic areas are seen within the central kidneys on both sides. Findings are compatible with multiple parapelvic cysts. Delayed images show nondilated collecting system within both kidneys. Contrast is noted within the ureters on delayed images and shows no dilatation. Contrast is noted on delayed images within the bladder. Kidneys show no focal parenchymal abnormality. Visualized lung bases shows nothing acute. Numerous low density lesions are seen within the right and left lobes of the liver. Larger abnormalities have Hounsfield unit measurements of cysts and other findings most likely represent numerous other liver cysts. Spleen size is normal. Adrenal glands show no nodule. Pancreas shows no discrete abnormality. Gallbladder contains no calcified gallstones. Aorta shows atherosclerotic calcification without aneurysmal dilatation. Atherosclerotic calcification is also seen into the iliac vessels. No retroperitoneal adenopathy or mesenteric abnormalities are seen. No pelvic mass or adenopathy is noted. Appendix is seen and appears to be normal in size. Mild degenerative change is seen within the spine. No acute osseous abnormality is appreciated. Cystic change is noted within the left femoral head with mild osteophytes compatible with degenerative change. Impression: 1. Numerous parapelvic cysts as an incidental note. Delayed images show normal contrast within the pelviceal system and within the ureters. 2. Numerous low-density lesions within the liver which most likely represent multiple cysts. 3. Degenerative change within the spine and left hip. 4. Nothing acute is seen. Diagnostic code #2
[2020-06-18] MEDS ORDERED: Famotidine 20 MG Tab PO ONE (14:21)
== END 2020-06-18 15:35 | disposition home or self-care (01) ==
LOC: JD.ED 09:14
DX: J18.9 Pneumonia, unspecified organism (principal); K21.9 Gastro-esophageal reflux disease without esophagitis; E78.00 Pure hypercholesterolemia, unspecified; I10 Essential (primary) hypertension; M19.90 Unspecified osteoarthritis, unspecified site; Z79.82 Long term (current) use of aspirin; Z79.899 Other long term (current) drug therapy; R06.02 Shortness of breath
CPT/HCPCS: 36415; 71045; 74177; 80053; 81001; 83735; 83880; 84484; 85025; 85610; 85730; 86140; 87040; 93005; 99284; A9270; J7042; Q9967; 93010

== ENCOUNTER 2021-07-30 11:03 | Day surgery (SDC) | payer MEDICARE, OTHER ==
[2021-07-30] MEDS: Polymyxin B/Trimethoprim 10 ML Bottle EYELF SCH ×4 (11:40→13:47)
[2021-07-30] MEDS: Brimonidine 0.2% Ophth Soln 5 ML Bottle EYELF SCH ×4 (11:46→13:47)
[2021-07-30] MEDS: Phenylephrine 2.5% Ophth Soln 2 ML Bot EYELF SCH ×6 (11:50→13:34)
[2021-07-30] MEDS: Tropicamide 1% Ophth Soln 15 ML Bottle EYELF SCH ×4 (11:55→13:01)
[2021-07-30] MEDS: Tetracaine HCl/PF 0.5% 4 ML Bottle EYEBOTH SCH ×5 (13:08→13:34)
[2021-07-30] MEDS: Lidocaine 1% PF 2 ML SDV INJECT SCH ×2 (13:32→13:34)
[2021-07-30] MEDS: Cefuroxime 10 MG/ML SYRINGE EYELF SCH ×2 (13:35→13:46)
[2021-07-30] MEDS: Pilocarpine 4% Ophth Soln 15 ML Bot EYELF SCH ×2 (13:35→13:47)
== END 2021-07-30 13:58 | disposition home or self-care (01) ==
LOC: JD.SDS 11:03
PROVIDERS: ATTEND Ophthalmology
DX: H25.813 Combined forms of age-related cataract, bilateral (principal); H16.223 Keratoconjunctivitis sicca, not specified as Sjogren's, bilateral; H02.834 Dermatochalasis of left upper eyelid; H02.831 Dermatochalasis of right upper eyelid; F41.9 Anxiety disorder, unspecified; E78.00 Pure hypercholesterolemia, unspecified; I10 Essential (primary) hypertension; Z98.890 Other specified postprocedural states; Z79.899 Other long term (current) drug therapy
CPT/HCPCS: 66984; J0697; V2632

== ENCOUNTER 2021-09-03 12:52 | Day surgery (SDC) | payer MEDICARE, OTHER ==
[2021-09-03] MEDS: Polymyxin B/Trimethoprim 10 ML Bottle EYERT SCH ×4 (14:04→15:26)
[2021-09-03] MEDS: Brimonidine 0.2% Ophth Soln 5 ML Bottle EYERT SCH ×4 (14:09→15:26)
[2021-09-03] MEDS: Phenylephrine 2.5% Ophth Soln 2 ML Bot EYERT SCH ×6 (14:13→15:07)
[2021-09-03] MEDS: Tropicamide 1% Ophth Soln 15 ML Bottle EYERT SCH ×3 (14:20→14:36)
[2021-09-03] MEDS: Tetracaine HCl/PF 0.5% 4 ML Bottle EYEBOTH SCH ×5 (14:36→15:15)
[2021-09-03] MEDS: Lidocaine 1% PF 2 ML SDV INJECT SCH ×2 (14:37→15:15)
[2021-09-03] MEDS: Cefuroxime 10 MG/ML SYRINGE EYERT SCH ×2 (14:37→15:25)
[2021-09-03] MEDS: Pilocarpine 4% Ophth Soln 15 ML Bot EYERT SCH ×2 (14:37→15:26)
== END 2021-09-03 15:35 | disposition home or self-care (01) ==
LOC: JD.SDS 12:52
PROVIDERS: ATTEND Ophthalmology
DX: H25.811 Combined forms of age-related cataract, right eye (principal); H52.31 Anisometropia; F41.9 Anxiety disorder, unspecified; I10 Essential (primary) hypertension; E78.00 Pure hypercholesterolemia, unspecified; Z98.890 Other specified postprocedural states; Z79.899 Other long term (current) drug therapy
CPT/HCPCS: 66984; J0697; V2632

== ENCOUNTER 2022-06-06 10:22 | Emergency (ER) | payer MEDICARE, OTHER ==
[2022-06-06] MEDS ORDERED: Sodium Chloride 0.9% 10 ML Syringe FLUSH PRN (11:09)
[2022-06-06] MEDS ORDERED: cefTRIAXone 2 GM in Sodium Chloride 0.9% 100 ML IV ONE (12:03)
[2022-06-06] MEDS ORDERED: Sodium Chloride 0.9% 500 ML IV STA (12:15)
[2022-06-06] MEDS ORDERED: Potassium Chloride 20 MEQ Tab.ER PO ONE (12:16)
[2022-06-06 12:29] LABS: CORONAVIRUS COVID-19 NAA NEGATIVE (NEGATIVE)
== END 2022-06-06 14:55 | disposition home or self-care (01) ==
LOC: JD.ED 10:22
DX: N39.0 Urinary tract infection, site not specified (principal); E78.00 Pure hypercholesterolemia, unspecified; I10 Essential (primary) hypertension; Z79.899 Other long term (current) drug therapy; Z79.82 Long term (current) use of aspirin; Z20.822 Contact with and (suspected) exposure to COVID-19
CPT/HCPCS: 0241U; 36415; 71046; 80053; 83605; 85007; 85027; 85610; 86140; 87040; 96365; 99284; A9270; J0696; J3490; J7030

== ENCOUNTER 2022-12-06 08:00 | Day surgery (SDC) | payer MEDICARE, OTHER ==
[~2022-12-06 08:00] MED LIST changes: -Lidocaine 1% 4 ML ONE; -Lidocaine 1%/Sod Bicarbonate in NS 8.4% 1 ML Syringe IDERM PRN; -Midazolam 1 MG/ML 2 ML SDV ONE; +Morphine 8 MG, EPINEPHrine 0.3 MG, Cefuroxime 750 MG, Ketorolac 30 MG, Sodium Chloride ... PRN; -Propofol 200 MG/20 ML SDV ONE; -Sodium Chloride 0.9% 10 ML Syringe FLUSH PRN; -fentaNYL 250 MCG/5 ML SDV ONE
[2022-12-06] MEDS ORDERED: Propofol 200 MG/20 ML SDV ONE (08:47)
[2022-12-06] MEDS ORDERED: Lidocaine 1% 5 ML VIAL ONE (08:47)
[2022-12-06] MEDS ORDERED: Midazolam 1 MG/ML 2 ML SDV ONE (08:48)
[2022-12-06] MEDS ORDERED: ceFAZolin 2 GM Vial ONE (08:48)
[2022-12-06] MEDS ORDERED: Dexamethasone 4 MG/ML 5 ML MDV ONE (08:48)
[2022-12-06] MEDS ORDERED: fentaNYL 100 MCG/2 ML SDV ONE (08:48)
[2022-12-06] MEDS ORDERED: Ondansetron 4 MG/2 ML SDV ONE (08:48)
[2022-12-06] MEDS ORDERED: Sodium Chloride 0.9% 10 ML Syringe FLUSH PRN (09:00)
[2022-12-06] MEDS ORDERED: Dexmedetomidine 200 MCG/2 ML SDV ONE (09:04)
[2022-12-06] MEDS: Lactated Ringers 1,000 ML IV SCH ×2 (09:30→14:09)
[2022-12-06] MEDS ORDERED: Tranexamic Acid 1,000 MG/10 ML Vial ONE (10:48)
[2022-12-06] MEDS ORDERED: Vancomycin 1 GM SDV ONE (10:48)
[2022-12-06] MEDS ORDERED: Lactated Ringers 1,000 ML ONE (11:39)
[2022-12-06] MEDS ORDERED: Ketorolac 15 MG/ML SDV ONE (12:22)
[2022-12-06] MEDS ORDERED: oxyCODONE 5 MG Tab PO SCH (14:00)
[2022-12-06] MEDS ORDERED: Acetaminophen/HYDROcodone 325-5 MG Tab PO PRN (14:02)
== END 2022-12-06 17:08 | disposition home or self-care (01) ==
LOC: JD.SDS 08:00
PROVIDERS: ATTEND Orthopaedic Surgery
DX: M17.11 Unilateral primary osteoarthritis, right knee (principal); I10 Essential (primary) hypertension; K44.9 Diaphragmatic hernia without obstruction or gangrene; F41.9 Anxiety disorder, unspecified; D50.9 Iron deficiency anemia, unspecified; E78.2 Mixed hyperlipidemia; D64.9 Anemia, unspecified; F32.A Depression, unspecified; K21.9 Gastro-esophageal reflux disease without esophagitis; D72.829 Elevated white blood cell count, unspecified; N19 Unspecified kidney failure; Z98.890 Other specified postprocedural states; Z79.890 Hormone replacement therapy; Z79.899 Other long term (current) drug therapy
CPT/HCPCS: 01402; 64447; 73560-26-RT; 73560-RT; 97110-GP; 97116-GP; 97161-GP; 99100; A9270-GY; C1713; C1776; J0171; J0690; J0697; J1100; J1885; J2250; J2270; J2405; J2704; J2795; J3010; J3370; J3490; J7030; J7120

== ENCOUNTER 2023-12-17 00:37 | Emergency (ER) | payer MEDICARE, OTHER ==
[2023-12-17] MEDS ORDERED: Sodium Chloride 0.9% 10 ML Syringe FLUSH PRN (01:20)
[2023-12-17 01:26] LABS: BASOPHILS ABSOLUTE AUTO 0.1 K/mm3 (0.0-0.2); EOSINOPHILS ABSOLUTE AUTO 0.3 K/mm3 (0.0-0.4); HEMATOCRIT 41.3 % (37.0-47.0); HEMOGLOBIN 13.9 gm/dl (12.0-16.0); IMMATURE GRAN ABSOLUTE AUTO 0.03 K/mm3 (0.00-0.05); IMMATURE GRAN PERCENT AUTO 0.3 % (0.0-0.4); LYMPHOCYTES ABSOLUTE AUTO 2.9 K/mm3 (1.0-4.8); LYMPHOCYTES PERCENT AUTO 34.2 % (24.0-44.0); MEAN CORPUSCULAR HEMOGLOBIN 33.3 pg (28.0-32.0); MEAN CORPUSCULAR HGB CONC 33.7 g/dl (32.0-36.0); MEAN CORPUSCULAR VOLUME 98.8 fl (83.0-99.0); MEAN PLATELET VOLUME 9.6 fl (9.4-12.3); MONOCYTES ABSOLUTE AUTO 0.7 K/mm3 (0.0-0.8); NEUTROPHILS ABSOLUTE AUTO 4.6 K/mm3 (1.8-7.7); NEUTROPHILS PERCENT AUTO 53.5 % (41.0-71.0); PLATELET COUNT,PLT 308 K/mm3 (150-400); RED BLOOD CELL COUNT 4.18 M/mm3 (4.10-5.30); WHITE BLOOD CELL COUNT,WBC 8.59 K/mm3 (3.9-11.3)
[2023-12-17] MEDS: HYDROmorphone 0.5 MG/0.5 ML Syringe IVPUSH ONE (01:29)
[2023-12-17 01:39] LABS: A/G RATIO 1.2 (1-2); ALBUMIN 3.9 g/dl (3.4-5.0); BILIRUBIN TOTAL 0.4 mg/dL (0.2-1.0); BUN/CREATININE RATIO 16.4 (14-18); C-REACTIVE PROTEIN 0.33 mg/dL (<0.30); CALCIUM 9.3 mg/dL (8.5-10.1); CREATININE 1.1 mg/dL (0.55-1.02); EST CRCL DRUG DOSING (CG) 28.32 mL/min; MAGNESIUM 2.1 mg/dL (1.8-2.4); PROTEIN TOTAL,TP 7.1 g/dl (6.4-8.2)
[2023-12-17] MEDS: Iopamidol 612 MG/ML 100 ML Bottle IVPUSH ONE (02:57)
== END 2023-12-17 04:05 | disposition home or self-care (01) ==
LOC: JD.ED 00:37
DX: M54.50 Low back pain, unspecified (principal); R10.10 Upper abdominal pain, unspecified; E78.00 Pure hypercholesterolemia, unspecified; I10 Essential (primary) hypertension; Z79.899 Other long term (current) drug therapy; Z90.710 Acquired absence of both cervix and uterus
CPT/HCPCS: 36415; 71045; 74177; 80053; 83690; 83735; 84484; 85025; 86140; 93005; 96374; 99285; J1171; Q9967; 93010; 99284